=== PATIENT | female | born 1935 | race Caucasian/White ===

== ENCOUNTER 2019-09-21 12:54 | Outpatient (CLI) | payer MEDICARE, BC, SELFPAY ==
[2019-09-21 14:14] LABS: C Reactive Protein 0.9 mg/L (0.0-4.9); Creatine Phosphokinase 123 U/L (26-192)
[2019-09-21 15:05] LABS: Erythrocyte Sedimentation Rate 15 mm/hr (0-15)
[2019-09-22 11:07] LABS: Aldolase 5.1 U/L (< OR = 8.1)
[2019-09-22 13:47] LABS: Cyclic Citrullinated Peptide <16 UNITS
[2019-09-22 14:12] LABS: Anti-Nuclear Antibody Screen NEGATIVE (NEGATIVE); SCL 70 <1.0 NEG AI (<1.0 NEG); SS A Ro Sjogrens Antibody <1.0 NEG AI (<1.0 NEG); SS-B/LA IGG <1.0 NEG AI (<1.0 NEG)
== END 2019-09-21 12:55 | disposition home or self-care (01) ==
LOC: LAB 12:59
PROVIDERS: Visit Provider Internal Medicine Critical Care Medicine
DX: J84.10 Pulmonary fibrosis, unspecified (principal)
CPT/HCPCS: 36415; 82085; 82550; 83516; 85651; 86038; 86140; 86235; 86431

== ENCOUNTER 2019-09-23 10:18 | Outpatient (CLI) | payer MEDICARE, BC, SELFPAY ==
--- NOTE | 2019-09-23 10:45 | CT_ITS ---
WS: [id number] CT CHEST TECHNIQUE: High-resolution Noncontrast CT of the chest with coronal and sagittal reformatted images. CLINICAL INFORMATION: PULMONARY FIBROSIS COMPARISON: CT chest August 08, 2019 DLP: 1615.[address] scans at [facility] use at least one of these dose optimization techniques: automat ed exposure control; mA and/or kV adjustment per patient size (includes targeted exams where dose is matched to clinical indication); or iterative reconstruction. FINDINGS: Moderate chronic emphysematous changes. No acute pulmonary infiltrates. No consolidation or pleural f luid. No focal pneumonia. Again seen are changes of interstitial fibrosis with slight peripheral honeycombing in the lower lobe s peripherally, right middle lobe, and lingula. Mosaic pattern with moderate air trapping seen on the expiratory imaging. Mild thoracic aortic calcification. Coronary calcification. Small right thyroid nodule measuring 10 m m. No mediastinal or hilar lymphadenopathy. Normal endobronchial tree. Small esophageal hiatal hernia. Cholecystectomy clips. 2.6 cm right renal cyst. Adrenal glands are no rmal. Unremarkable thoracic spine. CT/CT chest wo con [id number] IMPRESSION: 1. Moderate chronic emphysematous changes. 2. Stable changes of interstitial fibrosis with a small amount of peripheral h oneycombing, more prominent in the lung bases. 3. Moderate air trapping seen on the expiratory imaging with mosaic lung perfu swetha. 4. No mediastinal or hilar lymphadenopathy. 5. Cardiomegaly with vascular calcification. 6. Small esophageal hiatal hernia.
== END 2019-09-23 10:19 | disposition home or self-care (01) ==
LOC: RADWPI 10:21
PROVIDERS: Visit Provider Internal Medicine Critical Care Medicine
DX: J84.10 Pulmonary fibrosis, unspecified (principal); I51.7 Cardiomegaly; K44.9 Diaphragmatic hernia without obstruction or gangrene
CPT/HCPCS: 71250

== ENCOUNTER → 2019-10-04 08:37 | Outpatient (BNVA) | payer MEDICARE, BC, SELFPAY | PROVIDERS: Visit Provider Internal Medicine Cardiovascular Disease | DX: I10 Essential (primary) hypertension (principal); E78.5 Hyperlipidemia, unspecified; I25.10 Atherosclerotic heart disease of native coronary artery without angina pectoris; G47.33 Obstructive sleep apnea (adult) (pediatric); E78.2 Mixed hyperlipidemia; I48.0 Paroxysmal atrial fibrillation | CPT/HCPCS: 80061 ==

== ENCOUNTER 2019-11-22 11:56 | Outpatient (CLI) | payer MEDICARE, BC, SELFPAY ==
[2019-11-22 12:45] LABS: Alanine Aminotransferase 29 U/L (0-33); Alkaline Phosphatase 55 IU/L (35-105); Anion Gap 16.6 (5-19); Blood Urea Nitrogen 18 mg/dL (8-23); Calcium 10.2 mg/dL (8.5-10.5); Carbon Dioxide 26 mmol/L (22-29); Chloride 103 mmol/L (98-107); Globulin 2.7 g/dL (1.3-4.6); Glucose 129 mg/dL (65-115); Osmolality Calculated 290 mOsm/kg (285-295); Potassium 4.6 mmol/L (3.5-5.1); Sodium 141 mmol/L (136-145); Total Bilirubin 0.4 mg/dL (0.15-1.2); Total Protein 6.7 g/dL (6.6-8.7)
[2019-11-22 13:42] LABS: Aspartate Amino Transferase 31 U/L (0-32)
== END 2019-11-22 11:57 | disposition home or self-care (01) ==
LOC: LAB 12:01
PROVIDERS: Visit Provider Internal Medicine Critical Care Medicine
DX: J67.9 Hypersensitivity pneumonitis due to unspecified organic dust (principal)
CPT/HCPCS: 36415; 80053

== ENCOUNTER 2019-12-21 12:32 | Outpatient (CLI) | payer MEDICARE, BC, SELFPAY ==
[2019-12-21 14:08] LABS: Anion Gap 16.5 (5-19); Blood Urea Nitrogen 26 mg/dL (8-23); Calcium 9.4 mg/dL (8.5-10.5); Carbon Dioxide 26 mmol/L (22-29); Chloride 100 mmol/L (98-107); Glucose 157 mg/dL (65-115); Osmolality Calculated 286 mOsm/kg (285-295); Potassium 4.5 mmol/L (3.5-5.1); Sodium 138 mmol/L (136-145)
== END 2019-12-21 12:33 | disposition home or self-care (01) ==
LOC: LAB 12:37
PROVIDERS: Visit Provider Internal Medicine Critical Care Medicine
DX: J67.9 Hypersensitivity pneumonitis due to unspecified organic dust (principal)
CPT/HCPCS: 80048

== ENCOUNTER → 2020-03-19 12:40 | Outpatient (BNVA) | payer MEDICARE, BC, SELFPAY | PROVIDERS: Visit Provider Internal Medicine | DX: J67.9 Hypersensitivity pneumonitis due to unspecified organic dust (principal) | CPT/HCPCS: 87635 ==

== ENCOUNTER → 2020-04-30 11:28 | Outpatient (BNVA) | payer MEDICARE, BC, SELFPAY | PROVIDERS: Visit Provider Internal Medicine | DX: J67.9 Hypersensitivity pneumonitis due to unspecified organic dust (principal); J84.10 Pulmonary fibrosis, unspecified | CPT/HCPCS: 87635 ==

== ENCOUNTER 2020-05-03 11:04 | Outpatient (CLI) | payer MEDICARE, BC, SELFPAY ==
--- NOTE | 2020-05-03 15:59 | PFTS_ITS ---
Date of Study:05/03/20 Date of Dictation: MECHANICS: Forced vital capacity (FVC) is reduced. Forced expiratory volume in one second (FEV1) is reduced. FEV1/FVC is normal. FLOW VOLUME LOOP: Narrow. LUNG VOLUMES: Total lung capacity (TLC) is reduced. Residual volume (RV) is reduced. DIFFUSING CAPACITY FOR CARBON MONOXIDE: Normal. INTERPRETATION: The pulmonary function tests are consistent with moderate restriction. There is no significant postbronchodilator response. Lung volumes are consistent with restrictive lung disease. Gas exchange (DLCO) is normal. MTDD
== END 2020-05-03 11:05 | disposition home or self-care (01) ==
LOC: RT 11:05
PROVIDERS: Visit Provider Internal Medicine Critical Care Medicine
DX: J67.9 Hypersensitivity pneumonitis due to unspecified organic dust (principal)
CPT/HCPCS: 94060; 94726; 94729; J7611

== ENCOUNTER 2020-05-24 06:57 | Outpatient (CLI) | payer MEDICARE, BC, SELFPAY ==
--- NOTE | 2020-05-24 07:10 | USCV_ITS ---
Adrian Eloisa Age: 85 Gender: F : 1935 Exam Date: 05/24/2020 07:31 Ordering Phys: Saleem Rosado Technologist: Tenisha Hussein Exam Location: [facility] [place] Indication: CHRONIC BENITES HF BP: 152 / 74 HR: 67 Rhythm: Other Technical Quality: Fair MEASUREMENTS (Male / Female) Normal Values 2D ECHO LV Diastolic Diameter PLAX 5.5 cm 4.2 - 5.9 / 3.9 - 5.3 cm LV Systolic Diameter PLAX 3.6 cm LV Chamber Size 4.7 cm IVS Diastolic Thickness 1.0 cm 0.6 - 1.0 / 0.6 - 0.9 cm IVS Systolic Thickness 1.7 cm LVPW Diastolic Thickness 0.9 cm 0.6 - 1.0 / 0.6 - 0.9 cm LVPW Systolic Thickness 1.2 cm RV Chamber Size 3.3 cm LVOT Diameter 2.0 cm LV Ejection Fraction 2D Teich 62.1 % LA Diameter 4.3 cm LA Width 3.5 cm LA Height 5.2 cm RA Width 2.9 cm RA Height 5.3 cm Aorta at Sinotubular Diameter 2.6 cm M-MODE LV Diastolic Diameter MM 5.7 cm 4.2 - 5.9 / 3.9 - 5.3 cm LV Systolic Diameter MM 3.7 cm LV Ejection Fraction MM Teich 64.1 % IVS Diastolic Thickness MM 1.2 cm 0.6 - 1.0 / 0.6 - 0.9 cm IVS Systolic Thickness MM 1.1 cm LVPW Diastolic Thickness MM 0.9 cm 0.6 - 1.0 / 0.6 - 0.9 cm LVPW Systolic Thickness MM 1.6 cm Aortic Annulus Diameter 3.0 cm LA Ao Ratio MM 1.5 MV E Point Septal Separation 0.3 cm DOPPLER AV Peak Velocity 150.0 cm/s LVOT Peak Velocity 95.0 cm/s AV Area Cont Eq vti 2.1 cm squared AV Area Cont Eq pk 2.0 cm squared MV Area PHT 2.7 cm squared Mitral E to A Ratio 0.8 MV E' Velocity 42.0 cm/s Mitral E to MV E' Ratio 10.9 Mitral E to LV E' Lateral Ratio 9.7 Mitral E to LV E' Septal Ratio 12.5 TR Peak Velocity 256.2 cm/s TR Peak Gradient 26.3 mmHg TR Mean Velocity 222.1 cm/s TR Mean Gradient 19.9 mmHg TR Velocity Time Integral 88.8 cm TV Peak E Velocity 55.0 cm/s Right Atrial Pressure 3.0 mmHg Pulmonary Artery Systolic Pressu 29.3 mmHg PV Peak Velocity 88.0 cm/s FINDINGS Left Ventricle Normal left ventricular size and systolic function, EF 60%. No gross wall motion of normalities. Segmental wall motion analysis difficult because of the poor ultrasonic window .Grade I/IV diastolic dysfunction (abnormal relaxation filling pattern), normal to mildly elevated filling pressures. Right Ventricle Normal right ventricular size and systolic function. Right Atrium Normal right atrial size. Left Atrium Moderately increased left atrial size. Mitral Valve Thickened mitral valve. Mild mitral annular calcification. Trace mitral valve regurgitation. Aortic Valve Thickened aortic valve. Tricuspid Valve Trace tricuspid valve regurgitation. Pulmonic Valve Pulmonic valve not well visualized. Pericardium No pericardial effusion. Aorta Normal aortic annulus size. CONCLUSIONS Normal left ventricular size and systolic function, EF 60%. No gross wall motion of normalities. Segmental wall motion analysis difficult because of the poor ultrasonic window . Type I diastolic dysfunction. Thickened aortic and mitral valves. Mild mitral annular calcification. Trace mitral valve regurgitation. Trace tricuspid valve regurgitation. Estimated pulmonary artery peak systolic pressure was 26 mmHg There is no pericardial effusion. There are no intracardiac masses. Compared to the study from 09/17/2016, there may not be a significant change Dr Flo Wong MD [facility] (Electronically Signed) Final Date: 24 May 2020 13:56 S
== END 2020-05-24 06:58 | disposition home or self-care (01) ==
LOC: RAD 07:01
DX: I50.32 Chronic diastolic (congestive) heart failure (principal); I08.3 Combined rheumatic disorders of mitral, aortic and tricuspid valves
CPT/HCPCS: 93306

== ENCOUNTER 2020-06-25 09:03 | Emergency (ER) | payer MEDICARE, BC, SELFPAY ==
[2020-06-25 09:04] VITALS: BP 158/68; PULSE 56; RESP 15; TEMP 36.5; O2SAT 97; BMI 29.0
[2020-06-25 09:31] LABS: Basophils % 0.3 %; Eosinophils # 0.3 10^3/uL (0.0-0.8); Eosinophils % 2.9 %; Hematocrit 40.3 % (37.0-47.0); Hemoglobin 12.8 g/dL (11.5-15.3); Lymphocytes # 2.8 10^3/uL (0.8-4.8); Lymphocytes % 27.2 %; Mean Corpuscular HGB Conc 31.8 g/dL (30.0-36.0); Mean Corpuscular Hemoglobin 29.4 pg (28.0-34.0); Mean Corpuscular Volume 92.6 fL (81-99); Mean Platelet Volume 10.7 fL (7.4-10.4); Monocytes # 0.7 10^3/uL (0.2-0.9); Monocytes % 6.5 %; Neutrophils # 6.49 10^3/uL (1.8-7.7); Neutrophils % 62.4 %; Nucleated Red Blood Cells % 0 %; Platelet Count 179 10^3/cmm (130-400); Red Blood Count 4.35 10^6/uL (4.1-5.3); Red Cell Distribution Width 13.2 % (12.1-15.1); White Blood Count 10.4 10^3/uL (4.0-10.0)
[2020-06-25 09:57] LABS: Alanine Aminotransferase 22 U/L (0-33); Albumin Level 3.9 g/dL (3.5-5.2); Alkaline Phosphatase 47 IU/L (35-105); Aspartate Amino Transferase 13 U/L (0-32); Blood Urea Nitrogen 39 mg/dL (8-23); Calcium 9.3 mg/dL (8.5-10.5); Carbon Dioxide 23 mmol/L (22-29); Chloride 100 mmol/L (98-107); Globulin 1.9 g/dL (1.3-4.6); Glucose 212 mg/dL (65-115); Osmolality Calculated 300 mOsm/kg (285-295); Sodium 137 mmol/L (136-145); Total Bilirubin 0.5 mg/dL (0.15-1.2); Total Protein 5.8 g/dL (6.6-8.7)
[2020-06-25] MEDS: sodium chloride 0.9% 500 ML 999 ML IV (10:03)
[2020-06-25 10:06] LABS: Creatinine Clr Calc Pharmacy 45.1134
--- NOTE | 2020-06-25 10:15 | CT_ITS ---
WS: [id number] CT HEAD NONCONTRAST HISTORY: fall/LOC/on anticoagulants TECHNIQUE: Contiguous axial imaging performed through the brain in 2.5 mm imaging. Bone and soft tiss ue windows. Sagittal and coronal reformats reviewed. All CT scans at [facility] use at le ast one of these dose optimization techniques: automated exposure control; mA and/or kV adjustment pe r patient size (includes targeted exams where dose is matched to clinical indication); or iterative r econstruction. DLP: 723.04 mGy.cm COMPARISON: 2016 No acute intracranial hemorrhage, midline shift or mass effect. Mild atrophy and chronic ischemic disease. Ventricles: Normal size with no hydrocephalus. There are a few foci of air at the skull base that were not present on the prior examination. These a re through the cavernous sinus bilaterally. There are a few additional foci of air in the LEFT mastic ator space. None of these collections of air were present on the prior study. With history of trauma an occult skull base fracture cannot be completely excluded. Paranasal sinuses: As visualized are clear. Mastoid air cells: Mastoid air cells are clear. There is a small amount of soft tissue in the LEFT ex ternal auditory canal. Calvarium and scalp: No skull fracture is identified. CT/CT head wo con* [id number] IMPRESSION: 1. No acute intracranial hemorrhage or edema. 2. 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 Occult paranasal sinus or skull base fracture young ot be excluded. Consider follow-up CT evaluation in 2-3 days to evaluate for re solution of the air or progression.
[2020-06-25 10:23] LABS: Blood Urine Neg (Negative); Glucose Urine UA Norm (Normal); Ketones Urine Negative (Negative); Nitrate Urine Negative (Negative); Protein Urine Neg (Negative); Urine Appearance SL Hazy (CLEAR); Urine Color Yellow (Yellow); pH Urine 5 (5-7)
[2020-06-25 10:24] LABS: Add Urine Microscopic? YES; Bacteria Urine 1+ /hpf; Bilirubin Urine Neg (Negative); Calcium Oxalate Crystals Urine 40-55 /hpf; Leukocyte Esterase Urine Negative (Negative); RBC Urine 0-4 /hpf (0-2); Squamous Epithelial Cell Urine 0-4 /hpf (0-5); Urobilinogen Urine Norm (Negative); WBC Urine 0-4 /hpf (0-5)
--- NOTE | 2020-06-25 10:34 | ED_ITS ---
HPI - Female Genitourinary General: Chief complaint: Urogenital-Female Stated complaint: Unable to tolerate antibiotics for UTI Time Seen by Provider: 06/25/20 09:13 History of Present Illness: HPI Narrative: 85-year-old female presents emergency room at the direction of nurse practitioner. She was seen last week and started on oral antibiotics for a UTI. 3 days ago the same day she started the antibiotics that she had went to go to the bathroom bit lightheaded and dizzy and fell forward off the toilet she has a small superficial abrasion on the right upper forehead from the incident. She is on Eliquis and Plavix. There was a brief loss of consciousness. She stopped taking the antibiotics assuming that it was antibiotics that caused her to pass out. When she contacted the midlevel today they advised her to come to the emergency room. She does relate she had a low-grade fever at home and some loose stools she denies any nausea or vomiting. She denies any GI blood loss. She not noted any hematuria she does have a little bit of left flank pain none on the left. Is a history of recurrent UTIs, diabetes mellitus as well as atrial fibrillation. MD elicited complaint: UTI Pertinent past history: recurrent UTIs and diabetes Onset (ago): day(s) Severity: moderate Female Urogenital Radiation: L Flank Quality of pain: cramping Consistency: constant Vaginal discharge: none Vaginal bleeding: none Urinary symptoms: Dysuria and Flank Pain Exacerbating factors: none Relieving factors: none Associated symptoms: Reports abdominal pain, nausea, syncope and weakness; Deny short of breath, fevers/chills, headache(s), rash, seizures, vaginal bleeding or vaginal discharge Treatment prior to arrival: other (Single dose oral antibiotics) Review of Systems Const: Denies: fever(s), chills, body aches, change in appetite, fatigue or malaise ENMT: Denies: throat pain, ear or mastoid pain, nasal discharge or nasal congestion Card: Reports: syncope Resp: Denies: dyspnea, productive cough or non-productive cough GI: Reports: abdominal pain and nausea : Denies: vaginal discharge Skin/Breast: Denies: rash or pruritus Neuro: Denies: headache(s) [facility] ED PFSH: Medical History (Updated 06/25/20 @ 13:07 by Alfredo Spear DO) Atherosclerotic heart disease of [place] coronary artery without angina pectoris Atrial fibrillation Chest pain Fatigue GERD (gastroesophageal reflux disease) Hyperlipidemia Hypertension Obstructive sleep apnea Pt did not like CPAP SOB (shortness of breath) Type 2 diabetes mellitus Surgical History History of repair of hiatal hernia Hx of breast biopsy Hx of cholecystectomy Hx of hysterectomy Hx of laminectomy Hx of rotator cuff surgery Family History Father Diabetes Hypertension CAD (coronary artery disease) Mother Hypertension CAD (coronary artery disease) Sister Cancer Grandmother Cancer Other Bleeding disorder Social History Smoking and tobacco status: never smoked Alcohol intake: never Lives independently: Yes Household members: none Marital status: / Current occupational status: retired History of recent travel: No Current gender identity: Female Physical Exam Const: COMMON NORMALS: no acute distress GENERAL APPEARANCE: cooperative and comfortable ORIENTATION/CONSCIOUSNESS: Yes awake, Yes oriented to person, Yes oriented to place and Yes oriented to time HENMT: COMMON NORMALS: normocephalic and atraumatic HEAD & SCALP: normocephalic and atraumatic Neck/C-Spine: COMMON NORMALS: no JVD Resp: COMMON NORMALS: normal respiratory effort, No retractions, No use of accessory muscles and clear to auscultation bilaterally AUSCULTATION: clear to auscultation bilaterally Cardio: COMMON NORMALS: no JVD, regular rate, regular rhythm and No murmurs present (Cardio) RATE: regular rate RHYTHM: regular rhythm GI: COMMON NORMALS: Soft to palpation and No hepatosplenomegaly present AUSCULTATION: Yes normoactive bowel sounds PALPATION: Yes Soft to palpation, No Tenderness to palpation present (GI), No Guarding due to palpation present (GI) and Yes No hepatosplenomegaly present : BLADDER/KIDNEY EXAM: Yes CVA tenderness SPECULUM EXAM - VAGINA: No vaginal bleeding OB/EXTERNAL & SPECULUM: No vaginal bleeding Back/Pelvis: GENERAL BACK: Yes CVA tenderness CVA tenderness: left Extremity: COMMON NORMALS: normal to inspection, capillary refill normal, no clubbing, cyanosis or edema, no calf tenderness and no pedal edema Neuro: SENSORIUM/ORIENTATION: Yes oriented to person, Yes oriented to place and Yes oriented to time Skin: COMMON NORMALS: no rashes or lesions noted GENERAL SKIN EXAM: no rashes or lesions noted Course Vital Signs: Vital signs: Vital Signs Temperature 97.7 F 06/25/20 09:04 Pulse Rate 70 06/25/20 13:15 Respiratory Rate 15 06/25/20 13:15 Blood Pressure 136/55 06/25/20 13:15 Pulse Oximetry 98 06/25/20 13:15 MDM - Female MDM Narrative: Medical decision making narrative: Discussed findings with the patient. She is feeling much better working to go ahead and discharge her home. Complete antibiotics previously prescribed for UTI. Lab Data: Labs: Lab Results 06/25/20 06/25/20 06/25/20 Range/Units 09:20 09:20 09:20 WBC 10.4 H (4.0-10.0) 10^3/ uL RBC 4.35 (4.1-5.3) 10^6/u L Hgb 12.8 (11.5-15.3) g/dL Hct 40.3 (37.0-47.0) % MCV 92.6 (81-99) fL MCH 29.4 (28.0-34.0) pg MCHC 31.8 (30.0-36.0) g/dL RDW 13.2 (12.1-15.1) % Plt Count 179 (130-400) 10^3/c mm MPV 10.7 H (7.4-10.4) fL Neut % (Auto) 62.4 % Lymph % (Auto) 27.2 % [place] % (Auto) 6.5 % Eos % (Auto) 2.9 % Baso % (Auto) 0.3 % Neut # (Auto) 6.49 (1.8-7.7) 10^3/u L Lymph # (Auto) 2.8 (0.8-4.8) 10^3/u L [place] # (Auto) 0.7 (0.2-0.9) 10^3/u L Eos # (Auto) 0.3 (0.0-0.8) 10^3/u L Baso # (Auto) 0.0 (0.0-0.1) 10^3/u L Nucleated RBC % (a uto) 0 % Nucleated RBCs # 0.0 /100WBC Sodium 137 (136-145) mmol/L Potassium 4.0 (3.5-5.1) mmol/L Chloride 100 (98-107) mmol/L Carbon Dioxide 23 (22-29) mmol/L Anion Gap 18.0 (5-19) BUN 39 H (8-23) mg/dL Creatinine 1.0 H (0.5-0.9) mg/dL GFR Calculation Not Reportable Glucose 212 H (65-115) mg/dL Calculated Osmolal ity 300 H (285-295) mOsm/k g Calcium 9.3 (8.5-10.5) mg/dL Total Bilirubin 0.5 (0.15-1.2) mg/dL AST 13 (0-32) U/L ALT 22 (0-33) U/L Alkaline Phosphata se 47 (35-105) IU/L Troponin T Gen 5 n g/L 22 H (0-10) ng/L Troponin T 120 Min coquille (0-10) ng/L Delta Troponin T (0-10) ABS# Total Protein 5.8 L (6.6-8.7) g/dL Albumin 3.9 (3.5-5.2) g/dL Globulin 1.9 (1.3-4.6) g/dL Urine Color (Yellow) Urine Appearance (CLEAR) Urine pH (5-7) Ur Specific Gravit y (1.005-1.030) Urine Protein (Negative) Urine Glucose (UA) (Normal) Urine Ketones (Negative) Urine Blood (Negative) Urine Nitrate (Negative) Urine Bilirubin (Negative) Urine Urobilinogen (Negative) mg/dL Ur Leukocyte Brianna ase (Negative) Urine RBC (0-2) /hpf Urine WBC (0-5) /hpf Ur Squamous Epith Cells (0-5) /hpf Calcium Oxalate Cr ystal /hpf Amorphous Sediment Urine Bacteria (NONE) /hpf 06/25/20 06/25/20 Range/Units 09:30 12:27 WBC (4.0-10.0) 10^3/ uL RBC (4.1-5.3) 10^6/u L Hgb (11.5-15.3) g/dL Hct (37.0-47.0) % MCV (81-99) fL MCH (28.0-34.0) pg MCHC (30.0-36.0) g/dL RDW (12.1-15.1) % Plt Count (130-400) 10^3/c mm MPV (7.4-10.4) fL Neut % (Auto) % Lymph % (Auto) % [place] % (Auto) % Eos % (Auto) % Baso % (Auto) % Neut # (Auto) (1.8-7.7) 10^3/u L Lymph # (Auto) (0.8-4.8) 10^3/u L [place] # (Auto) (0.2-0.9) 10^3/u L Eos # (Auto) (0.0-0.8) 10^3/u L Baso # (Auto) (0.0-0.1) 10^3/u L Nucleated RBC % (a uto) % Nucleated RBCs # /100WBC Sodium (136-145) mmol/L Potassium (3.5-5.1) mmol/L Chloride (98-107) mmol/L Carbon Dioxide (22-29) mmol/L Anion Gap (5-19) BUN (8-23) mg/dL Creatinine (0.5-0.9) mg/dL GFR Calculation Glucose (65-115) mg/dL Calculated Osmolal ity (285-295) mOsm/k g Calcium (8.5-10.5) mg/dL Total Bilirubin (0.15-1.2) mg/dL AST (0-32) U/L ALT (0-33) U/L Alkaline Phosphata se (35-105) IU/L Troponin T Gen 5 n g/L (0-10) ng/L Troponin T 120 Min coquille 19.73 H (0-10) ng/L Delta Troponin T (0-10) ABS# Total Protein (6.6-8.7) g/dL Albumin (3.5-5.2) g/dL Globulin (1.3-4.6) g/dL Urine Color Yellow (Yellow) Urine Appearance Sl hazy (CLEAR) Urine pH 5 (5-7) Ur Specific Gravit y 1.020 (1.005-1.030) Urine Protein Neg (Negative) Urine Glucose (UA) Norm (Normal) Urine Ketones Negative (Negative) Urine Blood Neg (Negative) Urine Nitrate Negative (Negative) Urine Bilirubin Neg (Negative) Urine Urobilinogen Norm (Negative) mg/dL Ur Leukocyte Brianna ase Negative (Negative) Urine RBC 0-4 H (0-2) /hpf Urine WBC 0-4 H (0-5) /hpf Ur Squamous Epith Cells 0-4 H (0-5) /hpf Calcium Oxalate Cr ystal 40-55 H /hpf Amorphous Sediment Not Reportable Urine Bacteria 1+ H (NONE) /hpf Discharge Plan Discharge Patient Disposition: Home Clinical Impression: Syncope, Cystitis, Hypertension Condition: Stable Prescriptions: No Action pantoprazole 40 mg tablet,delayed release (DR/EC) 40 mg PO DAILY RF: 0 fenofibrate nanocrystallized [Tricor] 145 mg tablet 145 mg PO BEDTIME RF: 0 cholecalciferol (vitamin D3) 1,000 unit capsule 1,000 unit PO BID RF: 0 pioglitazone 15 mg tablet 15 mg PO DAILY RF: 0 Basaglar KwikElias U-100 Insulin 100 unit/mL (3 mL) insulin pen 62 unit SUBCUT BEDTIME RF: 0 prednisone 20 mg tablet 20 mg PO DAILY 60 Days Qty: 60 RF: 0 budesonide-formoterol [Symbicort] 80-4.5 mcg/actuation HFA aerosol inhaler 2 puff INHALATION BID 90 Days Qty: 10.2 RF: 3 metoprolol tartrate 50 mg tablet 50 mg PO BID Qty: 90 RF: 3 atorvastatin 10 mg Tablet 10 mg PO DAILY RF: 0 potassium chloride 10 mEq Tablet Extended Release 10 meq PO DAILY RF: 0 Lasix 20 mg Tablet 20 mg PO DAILY RF: 0 valsartan 160 mg Tablet 80 mg PO DAILY RF: 0 clopidogrel 75 mg tablet 75 mg PO DAILY RF: 0 Eliquis 5 mg Tablet 5 mg PO BID RF: 0 Discharge Orders: Discharge Order (Routine); Ordered 06/25/20 Ordered By: Alfredo Spear Referrals: Saleem Rosdao [Primary Care Provider] - Activity Restrictions/Additional Instructions: Case management will call to get you scheduled for an outpatient Holter monitor Coding Level of Care Code ED Exam Proctor for Chg Fwd Exam Comprehensive
[2020-06-25 11:30] VITALS: BP 116/94; PULSE 60; RESP 15; O2SAT 99
--- NOTE | 2020-06-25 11:38 | ECG_ITS ---
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 Measurements Intervals [place] Rate: 60 P: -17 MD: 135 QRS: -8 QRSD: 95 T: 90 QT: 388 QTc: 390 Interpretive Statements SINUS RHYTHM WITH OCCASIONAL SUPRAVENTRICULAR PREMATURE COMPLEXES NONSPECIFIC T-WAVE ABNORMALITY Compared to ECG 04/11/2017 21:14:55 T-wave abnormality now present Electronically Signed On 06-25-2020 18:25:35 [employer] by Flo Wong M.D. [id number] f
[2020-06-25 12:03] VITALS: BP 134/67; PULSE 61; RESP 15; O2SAT 96
[2020-06-25 12:13] LABS: Troponin T (5th) Once 22 ng/L (0-10)
[2020-06-25 12:50] LABS: Troponin 5 2HR 19.73 ng/L (0-10)
[2020-06-25 13:15] VITALS: BP 136/55; PULSE 70; RESP 15; O2SAT 98
--- NOTE | 2020-06-26 15:05 | DCPLANNER ---
executive communications manager had message to schedule a follow up appointment for patient with [facility] for a 24 hour monitor. executive communications manager faxed order to [facility], will call for appointment.
--- NOTE | 2020-07-11 10:33 | DCPLANNER ---
Patient had a follow up appointment on 06.28.20 at [facility] heart and lung clinic - patient did attend appointment.
== END 2020-06-25 13:16 | disposition home or self-care (01) ==
PROVIDERS: Emergency Provider Family Medicine
DX: R55 Syncope and collapse (principal); N30.90 Cystitis, unspecified without hematuria; I10 Essential (primary) hypertension; Z79.01 Long term (current) use of anticoagulants; Z79.52 Long term (current) use of systemic steroids; Z79.4 Long term (current) use of insulin; E11.9 Type 2 diabetes mellitus without complications; E78.5 Hyperlipidemia, unspecified; I25.10 Atherosclerotic heart disease of native coronary artery without angina pectoris; I48.91 Unspecified atrial fibrillation; S06.9X9A Unspecified intracranial injury with loss of consciousness of unspecified duration, initial encounter; W18.12XA Fall from or off toilet with subsequent striking against object, initial encounter
CPT/HCPCS: 12345; 70450; 80053; 81001; 84484; 85025; 93005; 99283; J7040

== ENCOUNTER 2020-07-20 15:29 | Outpatient (CLI) | payer MEDICARE, BC, SELFPAY ==
--- NOTE | 2020-07-20 15:45 | CT_ITS ---
WS: [id number] HIGH-RESOLUTION CT CHEST TECHNIQUE: High-resolution Noncontrast CT of the chest with prone and supine inspiratory and expirato ry imaging. CLINICAL INFORMATION: Interstitial lung disease COMPARISON: September 23, 2019 DLP: 593.[address] scans at [facility] use at least one of these dose optimization techniques: automat ed exposure control; mA and/or kV adjustment per patient size (includes targeted exams where dose is matched to clinical indication); or iterative reconstruction. FINDINGS: Moderate chronic emphysematous changes. Again seen are changes of interstitial fibrosis with mild per ipheral honeycombing more prominent in the lower lobes peripherally, right middle lobe, right upper l obe laterally, and lingula similar to previous. Again seen is moderate air trapping seen on the expiratory imaging. No acute pulmonary infiltrates. N o consolidation or pleural fluid. Overall no significant interval progression of interstitial lung di sease. Mild thoracic aortic calcification. Cardiomegaly. Coronary calcification. No mediastinal or hilar lym phadenopathy. Normal endobronchial tree. Small esophageal hiatal hernia. Cholecystectomy clips. CT/CT chest wo con [id number] IMPRESSION: 1. Stable moderate chronic emphysematous changes. 2. Again seen are changes of interstitial fibrosis with peripheral honeycombin g more prominent in the lower lobes stable from previous. No evidence of inters titial lung disease progression. 3. Again seen is moderate air trapping on the expiratory imaging. 4. No mediastinal or hilar lymphadenopathy. 5. Small esophageal hiatal hernia.
== END 2020-07-20 15:30 | disposition home or self-care (01) ==
LOC: RADWPI 15:36
PROVIDERS: Visit Provider Internal Medicine Critical Care Medicine
DX: J84.9 Interstitial pulmonary disease, unspecified (principal); K44.9 Diaphragmatic hernia without obstruction or gangrene
CPT/HCPCS: 71250

== ENCOUNTER → 2020-08-14 12:42 | Outpatient (BNVA) | payer MEDICARE, BC, SELFPAY | PROVIDERS: Visit Provider Nurse Practitioner Family | DX: N30.20 Other chronic cystitis without hematuria (principal) | CPT/HCPCS: 81003; 87077; 87086; 87184 ==

== ENCOUNTER → 2020-09-06 13:50 | Outpatient (BNVA) | payer MEDICARE, BC, SELFPAY | PROVIDERS: Visit Provider Nurse Practitioner Family | DX: N30.20 Other chronic cystitis without hematuria (principal) | CPT/HCPCS: 81003; 87077; 87086; 87184 ==

== ENCOUNTER → 2020-10-10 13:42 | Outpatient (BNVA) | payer MEDICARE, BC, SELFPAY | PROVIDERS: Visit Provider Urology | DX: R31.0 Gross hematuria (principal) | CPT/HCPCS: 87077; 87086; 87184; 88112 ==

== ENCOUNTER 2020-10-26 07:42 | Outpatient (CLI) | payer MEDICARE, BC, SELFPAY ==
[2020-10-26 09:00] LABS: Blood Urea Nitrogen 15 mg/dL (8-23)
--- NOTE | 2020-10-26 09:30 | CT_ITS ---
WS: [id number] CT ABDOMEN PELVIS TECHNIQUE: Noncontrast CT of the abdomen and contrast-enhanced CT of the abdomen and pelvis with bc nal and sagittal reformatted images. CLINICAL INFORMATION: GROSS HEMATURIA COMPARISON: CT December 11, 2015 DLP: 2533.[address] scans at [facility] use at least one of these dose optimization techniques: automat ed exposure control; mA and/or kV adjustment per patient size (includes targeted exams where dose is matched to clinical indication); or iterative reconstruction. FINDINGS: Prior cholecystectomy and hysterectomy. Diffuse fatty infiltration of the liver. Normal portal vein a nd splenic vein. Normal spleen. Small esophageal hiatal hernia with periesophageal component. Bibasil ar atelectasis. Normal spleen. Adrenal glands are normal. Normal renal parenchymal enhancement. No hydronephrosis. Right renal cyst measuring 2.9 CM. No hydronephrosis in either kidney. Mild bilateral renal cortical atrophy. No obstr ucting renal or ureteral calculi. Diverticulosis. No evidence of acute diverticulitis. No evidence of small or large bowel obstruction. Tiny fat-containing umbilical hernia. No abdominal or pelvic lymphadenopathy. Tiny fat-containing um bilical hernia. Bilateral fat-containing inguinal hernias. Moderate spondylitic changes lumbar spine. Lumbar curve convex left. CT/CT abdomen pelvis wo/w [id number] IMPRESSION: 1. No obstructing renal or ureteral calculi. 2. Normal bilateral renal parenchymal enhancement. No hydronephrosis. 3. Exophytic right upper pole renal cyst measuring 2.9 cm unchanged since 2015 . 4. Diffuse fatty infiltration of the liver. 5. Small esophageal hiatal hernia with a small paraesophageal component. 6. Sigmoid diverticulosis. No evidence of acute diverticulitis.
[2020-10-26] MEDS: iohexol 300 mg/mL 100 mL Btl IV (09:54)
== END 2020-10-26 07:43 | disposition home or self-care (01) ==
LOC: US 07:47
PROVIDERS: Visit Provider Nurse Practitioner Family
DX: R31.0 Gross hematuria (principal); K57.30 Diverticulosis of large intestine without perforation or abscess without bleeding; K44.9 Diaphragmatic hernia without obstruction or gangrene; K76.0 Fatty (change of) liver, not elsewhere classified; Q61.01 Congenital single renal cyst
CPT/HCPCS: 74178; 81003; 82565; 84520

== ENCOUNTER → 2021-01-30 11:02 | Outpatient (BNVA) | payer MEDICARE, BC, SELFPAY | PROVIDERS: Visit Provider Urology | DX: N30.80 Other cystitis without hematuria (principal) | CPT/HCPCS: 81003 ==

== ENCOUNTER → 2021-05-17 11:54 | Outpatient (BNVA) | payer MEDICARE, BC, SELFPAY | PROVIDERS: PCP Nurse Practitioner Family; Visit Provider Nurse Practitioner Family | DX: Z20.822 Contact with and (suspected) exposure to COVID-19 (principal) | CPT/HCPCS: 87635 ==

== ENCOUNTER → 2021-09-03 10:12 | Outpatient (BNVA) | payer MEDICARE, BC, SELFPAY | PROVIDERS: PCP Nurse Practitioner Family; Visit Provider Urology | DX: N39.9 Disorder of urinary system, unspecified (principal); N30.80 Other cystitis without hematuria; N31.9 Neuromuscular dysfunction of bladder, unspecified | CPT/HCPCS: 81003 ==

== ENCOUNTER → 2021-11-08 10:40 | Outpatient (BNVA) | payer MEDICARE, BC, SELFPAY | PROVIDERS: PCP Nurse Practitioner Family; Visit Provider Internal Medicine Critical Care Medicine | DX: J67.9 Hypersensitivity pneumonitis due to unspecified organic dust (principal); K21.9 Gastro-esophageal reflux disease without esophagitis; E78.5 Hyperlipidemia, unspecified; I10 Essential (primary) hypertension; G47.33 Obstructive sleep apnea (adult) (pediatric); E11.8 Type 2 diabetes mellitus with unspecified complications | CPT/HCPCS: 99213 ==

== ENCOUNTER → 2021-12-31 11:14 | Outpatient (BNVA) | payer MEDICARE, BC, SELFPAY | PROVIDERS: PCP Nurse Practitioner Family; Visit Provider Internal Medicine Cardiovascular Disease | DX: I25.10 Atherosclerotic heart disease of native coronary artery without angina pectoris (principal); I48.0 Paroxysmal atrial fibrillation; E78.2 Mixed hyperlipidemia; I10 Essential (primary) hypertension; R06.02 Shortness of breath; E11.9 Type 2 diabetes mellitus without complications; Z79.4 Long term (current) use of insulin | CPT/HCPCS: 36415; 80048; 80061; 82044; 83036; 83880; 84439; 84443; 85025; 99214 ==

== ENCOUNTER → 2022-03-11 10:39 | Outpatient (BNVA) | payer MEDICARE, BC, SELFPAY | PROVIDERS: PCP Clinical Nurse Specialist Adult Health; Visit Provider Urology | DX: N30.80 Other cystitis without hematuria (principal) | CPT/HCPCS: 81003; 87077; 87086; 87186; 99213 ==

== ENCOUNTER → 2022-07-01 14:01 | Outpatient (BNVA) | payer MEDICARE, BC, SELFPAY | PROVIDERS: PCP Clinical Nurse Specialist Adult Health; Visit Provider Internal Medicine Cardiovascular Disease | DX: I25.10 Atherosclerotic heart disease of native coronary artery without angina pectoris (principal); E78.2 Mixed hyperlipidemia; E11.9 Type 2 diabetes mellitus without complications; Z79.4 Long term (current) use of insulin; G47.33 Obstructive sleep apnea (adult) (pediatric); I10 Essential (primary) hypertension; I48.0 Paroxysmal atrial fibrillation; Z79.01 Long term (current) use of anticoagulants | CPT/HCPCS: 99214 ==

== ENCOUNTER → 2022-09-01 13:34 | Outpatient (BNVA) | payer MEDICARE, BC, SELFPAY | PROVIDERS: PCP Clinical Nurse Specialist Adult Health; Visit Provider Clinical Nurse Specialist Adult Health | DX: R39.11 Hesitancy of micturition (principal); J22 Unspecified acute lower respiratory infection | CPT/HCPCS: 81000; 87086 ==

== ENCOUNTER → 2022-09-01 14:49 | Outpatient (BNVA) | payer MEDICARE, BC, SELFPAY | PROVIDERS: PCP Clinical Nurse Specialist Adult Health; Visit Provider Clinical Nurse Specialist Adult Health | DX: R39.11 Hesitancy of micturition (principal); J22 Unspecified acute lower respiratory infection | CPT/HCPCS: 87077; 87184 ==

== ENCOUNTER → 2022-09-16 10:22 | Outpatient (BNVA) | payer MEDICARE, BC, SELFPAY | PROVIDERS: PCP Clinical Nurse Specialist Adult Health; Visit Provider Urology | DX: N30.80 Other cystitis without hematuria (principal) | CPT/HCPCS: 51798; 99213 ==

== ENCOUNTER 2022-10-07 15:13 | Outpatient (CLI) | payer MEDICARE, BC, SELFPAY ==
--- NOTE | 2022-10-07 15:28 | CT_ITS ---
WS: [id number] CT CHEST WITHOUT INTRAVENOUS CONTRAST HISTORY: RECENT LRI AND PNEUMONITIS TECHNIQUE: Contiguous 5 mm axial imaging performed on the thorax. Coronal and sagittal reformats are submitted. All CT scans at [facility] use at least one of these dose optimization techniques: automated exposure control; mA and/or kV adjustment per patient size (includes targeted exams where dose is matched to clinical indication); or iterative reconstruction. CONTRAST: None DLP: 436.76 mGy.cm COMPARISON: 07/20/2020 Lungs and central airway: Lung volumes are decreased. Patient has known pulmonary fibrosis with perip heral interstitial thickening noted bilaterally. No obvious progression of the reticulations the mari phery of both lungs. No dense areas of consolidation. There is mild bilateral groundglass attenuation which is probably related to air trapping. Pleura: Normal. No pleural effusion. Heart and pericardium: Moderate cardiomegaly. No pericardial effusion. Mediastinum and darryl: There are numerous small lymph nodes. Lymph nodes are not enlarged. There are m ediastinal and hilar lymph nodes. May be reactive due to the increase in number. Vessels: Mild atherosclerosis aorta. Mild coronary artery atherosclerosis. Chest wall and lower neck: No soft tissue masses. Upper abdomen: Moderate size hiatal hernia. Prior cholecystectomy. RIGHT renal cyst, 2.5 cm. Osseous structures: Increase in thoracic kyphosis. Disc spaces are narrowed and desiccated. CT/CT chest wo con [id number] IMPRESSION: 1. Moderate pulmonary fibrosis. Similar to the prior study of 07/20/2020 witho ut obvious change or progression. 2. No pneumonia. 3. Very slight increase in the mediastinal and hilar lymph node burden. May be reactive from pneumonitis. 4. Prior cholecystectomy. 5. RIGHT renal cyst.
== END 2022-10-07 15:14 | disposition home or self-care (01) ==
LOC: RAD 15:17
PROVIDERS: PCP Clinical Nurse Specialist Adult Health; Visit Provider Clinical Nurse Specialist Adult Health
DX: J67.9 Hypersensitivity pneumonitis due to unspecified organic dust (principal); J84.10 Pulmonary fibrosis, unspecified
CPT/HCPCS: 71250; 81000; 87086

== ENCOUNTER → 2022-10-29 13:30 | Outpatient (BNVA) | payer MEDICARE, BC, SELFPAY | PROVIDERS: PCP Clinical Nurse Specialist Adult Health; Visit Provider Urology | DX: N30.80 Other cystitis without hematuria (principal) | CPT/HCPCS: 99213 ==

== ENCOUNTER → 2022-11-10 10:00 | Outpatient (BNVA) | payer MEDICARE, BC, SELFPAY | PROVIDERS: PCP Clinical Nurse Specialist Adult Health; Visit Provider Internal Medicine Pulmonary Disease | DX: J44.9 Chronic obstructive pulmonary disease, unspecified (principal); J67.9 Hypersensitivity pneumonitis due to unspecified organic dust | CPT/HCPCS: 99214 ==

== ENCOUNTER 2022-12-01 15:57 | Outpatient (CLI) | payer MEDICARE, BC, SELFPAY ==
--- NOTE | 2022-12-01 16:23 | XRR_ITS ---
PROCEDURE INFORMATION: Exam: XR Chest Exam date and time: 12/01/2022 4:23 PM Age: 87 years old Clinical indication: Cough and shortness of breath TECHNIQUE: Imaging protocol: Radiologic exam of the chest. Views: 2 views. COMPARISON: CT chest con [id number] 10/07/2022 4:01 PM FINDINGS: Lungs: Imfie-qmebpid-rzqe-left severe hazy patchy infiltrates with fibrosis again seen. Findings are progressed from 10/07/2022. Pleural spaces: No pneumothorax. Heart/Mediastinum: The heart is mildly enlarged. Vasculature: Advanced diffuse vascular calcification noted. Bones/joints: Mild scoliosis. Organs: Absent gallbladder. XR/XR chest 2V* [id number] IMPRESSION: 1. Severe COPD with lung fibrosis. 2. Progressive areas of bilateral pneumonia or pneumonitis. Acute on chronic lung disease is likely. 3. Advise appropriate close follow-up.
== END 2022-12-01 15:58 | disposition home or self-care (01) ==
PROVIDERS: PCP Clinical Nurse Specialist Adult Health; Visit Provider Clinical Nurse Specialist Adult Health
DX: J22 Unspecified acute lower respiratory infection (principal); J44.9 Chronic obstructive pulmonary disease, unspecified
CPT/HCPCS: 71046

== ENCOUNTER → 2022-12-02 12:40 | Outpatient (BNVA) | payer MEDICARE, BC, SELFPAY | PROVIDERS: PCP Clinical Nurse Specialist Adult Health; Visit Provider Clinical Nurse Specialist Adult Health | DX: J22 Unspecified acute lower respiratory infection (principal) | CPT/HCPCS: 85025; 85651; 86140 ==

== ENCOUNTER 2022-12-03 03:07 | Inpatient (IN) | payer MEDICARE, BC, SELFPAY ==
[2022-12-03] VITALS (19 sets, daily range): BP systolic 103–174; BP diastolic 55–103; PULSE 74–145; RESP 16–29; TEMP 36.5–37; O2SAT 91–98; BMI 34.2; BMI 30.2
--- NOTE | 2022-12-03 03:11 | ECG_ITS ---
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 Measurements Intervals [place] Rate: 149 P: 0 CA: 0 QRS: -10 QRSD: 85 T: 17 QT: 264 QTc: 416 Interpretive Statements ATRIAL FIBRILLATION WITH RAPID VENTRICULAR RESPONSE NONSPECIFIC ST & T-WAVE ABNORMALITY Compared to ECG 06/25/2020 09:10:54 Sinus rhythm no longer present T-wave abnormality still present Electronically Signed On 12-03-2022 11:00:34 CDT by Mason Arambula M.D. [id number] f
--- NOTE | 2022-12-03 03:11 | XRR_ITS ---
PROCEDURE INFORMATION: Exam: XR Chest Exam date and time: 12/03/2022 3:18 AM Age: 87 years old Clinical indication: Pain; Prior surgery; Surgery type: Breast biopsy. Gb; Patient HX: C/O chest pressure. History of pulmonary fibrosis. ; Additional info: Cp TECHNIQUE: Imaging protocol: Radiologic exam of the chest. Views: 1 view. Total images: [id number] COMPARISON: CR XR chest 2V* [id number] 12/01/2022 4:23 PM FINDINGS: Lungs: Interval worsening of bilateral pleuroparenchymal disease. Pleural spaces: No pneumothorax. Heart/Mediastinum: Heart is enlarged but stable when compared to the prior exam. Vasculature: Atherosclerosis is evident. Bones/joints: Osseous structures are unchanged from the prior exam. XR/XR chest 1V portable [id number] IMPRESSION: 1. Heart is enlarged but stable when compared to the prior exam. 2. Interval worsening of bilateral pleuroparenchymal disease.
--- NOTE | 2022-12-03 03:12 | ED_ITS ---
HPI - Chest Pain General: Chief Complaint: Chest Pain Stated Complaint: chest pressure Time Seen by Provider: 12/03/22 03:07 Source: patient and EMS Mode of arrival: EMS Limitations: no limitations History of Present Illness: 87-year-old female has a history of pulmonary fibrosis she states that she had a slight cough some dyspnea over the last 3 to 4 days and states that tonight started on 8 PM she is having worsening dyspnea along with some chest pressure. States pain is currently a 2 out of 10 and states she feels like she is getting a deep breath and she denies any fevers she does have a history of A-fib with EMS she is in A-fib with RVR. Associated symptoms: Reports dyspnea and palpitations; Deny abdominal pain, fever(s), nausea or vomiting Review of Systems Const: Denies: fever(s), chills, body aches or change in appetite Eyes: Denies: eye discomfort ENMT: Denies: throat pain or dental pain Card: Reports: chest pain, palpitations and irregular heart rhythm Resp: Reports: dyspnea and non-productive cough GI: Denies: abdominal pain, nausea, vomiting or diarrhea : Denies: dysuria Musc: Denies: neck pain or back pain Skin/Breast: Denies: rash Neuro: Denies: headache(s) PFSH ED PFSH: Medical History Atherosclerotic heart disease of [place] coronary artery without angina pectoris Atrial fibrillation Cystitis cystica Fatigue GERD (gastroesophageal reflux disease) Gross hematuria Hyperlipidemia Hypertension Obstructive sleep apnea Pt did not like CPAP Syncope Type 2 diabetes mellitus Surgical History History of repair of hiatal hernia Hx of breast biopsy Hx of cholecystectomy Hx of hysterectomy Hx of laminectomy Hx of rotator cuff surgery Family History Father Diabetes Hypertension CAD (coronary artery disease) Mother Hypertension CAD (coronary artery disease) Sister Cancer Grandmother Cancer Other Bleeding disorder Social History Smoking and tobacco status: never smoked Second hand smoke exposure: No Alcohol intake: never Substance/Drug Use: never Lives independently: Yes Household members: none Marital status: / Current occupational status: retired Do you think of yourself as: Straight/Heterosexual Physical Exam Const: COMMON NORMALS: patient oriented x3 HENMT: COMMON NORMALS: normocephalic and atraumatic HEAD & SCALP: normocephalic and atraumatic Eye: COMMON NORMALS: conjunctivae normal CONJUNCTIVA: Yes conjunctivae normal Neck/C-Spine: COMMON NORMALS: full ROM and supple Chest: COMMONS NORMALS: normal inspection of the chest and normal palpation of entire chest wall Resp: COMMON NORMALS: normal respiratory effort, No retractions and No use of accessory muscles AUSCULTATION: rales Cardio: COMMON NORMALS: No murmurs present (Cardio) RATE: tachycardic RHYTHM: abnormal rhythm irregularly irregular GI: COMMON NORMALS: Normal to inspection, nondistended, normoactive bowel sounds present, Soft to palpation, non-tender and no masses PALPATION: Yes Soft to palpation Extremity: COMMON NORMALS: normal to inspection and full ROM Neuro: COMMON NORMALS: patient oriented x3, moves all extremities and no focal motor deficits Psych: COMMON NORMALS: mental status grossly normal, Normal thought process present and cooperative THOUGHT PROCESS: Normal thought process present Skin: COMMON NORMALS: no rashes or lesions noted and no wounds GENERAL SKIN EXAM: no rashes or lesions noted Course Vital Signs: Vital signs: Vital Signs Pulse Rate 126 H 12/03/22 03:11 Respiratory Rate 24 H 12/03/22 03:11 Blood Pressure 174/103 12/03/22 03:11 Pulse Oximetry 93 12/03/22 03:11 Oxygen Delivery Me thod Room Air 12/03/22 03:11 MDM - Chest Pain Medical Decision Making Patient presents here with A-fib with RVR heart rate was usually in the 160s improved to the 1 teens after 20 mg of Cardizem did have to start her on a Cardizem drip due to continued tachycardia her D-dimer is negative no signs of pulmonary embolism her pains improved she has no signs of dissection first troponin is 12 we will get a 2-hour Trope spoke to the hospitalist will admit to cardiac stepdown for her A-fib with RVR on Cardizem drip. Medical Records I reviewed the patient's medical records. Lab Data I reviewed the patient's lab results. 12/03/22 03:29 12/03/22 03:29 Laboratory Results WBC 12.4 10^3/uL (4.0-10.0) H 12/03/22 03: RBC 4.91 10^6/uL (4.1-5.3) 12/03/22 03:29 Hgb 14.4 g/dL (11.5-15.3) 12/03/22 03: Hct 45.2 % (37.0-47.0) 12/03/22 03: MCV 92.1 fl (81-99) 12/03/22 03: MCH 29.3 pg (28.0-34.0) 12/03/22 03: MCHC 31.9 g/dL (30.0-36.0) 12/03/22 03: RDW 13.3 % (12.1-15.1) 12/03/22 03: Plt Count 229 10^3/cmm (130-400) 12/03/22 03: MPV 10.3 fL (7.4-10.4) 12/03/22 03: Neut % (Auto) 78.9 % 12/03/22 03: Lymph % (Auto) 14.4 % 12/03/22 03: [place] % (Auto) 5.2 % 12/03/22 03: Eos % (Auto) 0.3 % 12/03/22 03: Baso % (Auto) 0.2 % 12/03/22 03: Neut # (Auto) 9.77 10^3/uL (1.8-7.7) H 12/03/22 03: Lymph # (Auto) 1.8 10^3/uL (0.8-4.8) 12/03/22 03:29 [place] # (Auto) 0.7 10^3/uL (0.2-0.9) 12/03/22 03:29 Eos # (Auto) 0.0 10^3/uL (0.0-0.8) 12/03/22 03:29 Baso # (Auto) 0.0 10^3/uL (0.0-0.1) 12/03/22 03:29 Nucleated RBC % (auto) 0 % 12/03/22 03:29 Nucleated RBCs # 0.0 /100WBC 12/03/22 03:29 PT 20.90 SECONDS (12.1-14.9) H 12/03/22 03:29 INR 1.73 (0.8-1.2) H 12/03/22 03:29 D-Dimer 0.42 ug/mIFEU (0-0.59) 12/03/22 03:29 Sodium 140 mmol/L (136-145) 12/03/22 03:29 Potassium 4.4 mmol/L (3.5-5.1) 12/03/22 03:29 Chloride 101 mmol/L (98-107) 12/03/22 03:29 Carbon Dioxide 25 mmol/L (22-29) 12/03/22 03:29 Anion Gap 18.4 (5-19) 12/03/22 03:29 BUN 18 mg/dL (8-23) 12/03/22 03:29 Creatinine 0.7 mg/dL (0.5-0.9) 12/03/22 03:29 GFR Calculation Not Reportable 12/03/22 03:29 Glucose 208 mg/dL (65-115) H 12/03/22 03:29 POC Glucose 200 mg/dL (70-110) H 12/03/22 03:16 Calculated Osmolality 298 mOsm/kg (285-295) H 12/03/22 03:29 Calcium 9.2 mg/dL (8.5-10.5) 12/03/22 03:29 Total Bilirubin 0.8 mg/dL (0.15-1.2) 12/03/22 03:29 AST 20 U/L (0-32) 12/03/22 03:29 ALT 24 U/L (0-33) 12/03/22 03:29 Alkaline Phosphatase 74 U/L (35-105) 12/03/22 03:29 Troponin T Baseline 12 ng/L (0-10) H 12/03/22 03:29 Total Protein 6.5 g/dL (6.6-8.7) L 12/03/22 03:29 Albumin 3.9 g/dL (3.5-5.2) 12/03/22 03:29 Globulin 2.6 g/dL (1.3-4.6) 12/03/22 03:29 EKG Data EKG 1: I personally reviewed and interpreted this EKG as follows: EKG interpretation date: 12/03/22 EKG interpretation time: 03:12 Interpretation: afib with rvr hr [address] or t wave abnormalities qrs 85 qtc 349 Critical Care Time Critical Care Time: Critical Care Time: Yes Total Critical Care Time: 40 Attestation: The high probability of a clinically significant, sudden or life threatening deterioration of the patient's cv system(s) required my full and direct attention, intervention and personal management. The critical care time is as shown. This time is in addition to time spent performing any reported procedures but includes the following: [x] Data and vital sign review and interpretation [x] Patient assessment, examination and intervention [x] Documentation [x] Medication orders and management Discharge Plan Discharge Patient Disposition: Admitted As Inpatient Admit Provider: Sugey Casey Clinical Impression: Atrial fibrillation with rapid ventricular response Condition: Stable Coding Level of Care Code ED Milled Rice Broker for David Arreola
[2022-12-03 03:18] LABS: Glucose Point of Care 200 mg/dL (70-110)
[2022-12-03] MEDS: dilTIAZem 5 mg/mL SDV 5 mL 20 MG IVP (03:26)
[2022-12-03 03:42] LABS: Basophils % 0.2 %; Eosinophils % 0.3 %; Hematocrit 45.2 % (37.0-47.0); Hemoglobin 14.4 g/dL (11.5-15.3); Lymphocytes # 1.8 10^3/uL (0.8-4.8); Lymphocytes % 14.4 %; Mean Corpuscular HGB Conc 31.9 g/dL (30.0-36.0); Mean Corpuscular Hemoglobin 29.3 pg (28.0-34.0); Mean Corpuscular Volume 92.1 fl (81-99); Mean Platelet Volume 10.3 fL (7.4-10.4); Monocytes # 0.7 10^3/uL (0.2-0.9); Monocytes % 5.2 %; Neutrophils # 9.77 10^3/uL (1.8-7.7); Neutrophils % 78.9 %; Nucleated Red Blood Cells % 0 %; Platelet Count 229 10^3/cmm (130-400); Red Blood Count 4.91 10^6/uL (4.1-5.3); Red Cell Distribution Width 13.3 % (12.1-15.1); White Blood Count 12.4 10^3/uL (4.0-10.0)
[2022-12-03 03:59] LABS: INR 1.73 (0.8-1.2)
[2022-12-03 04:02] LABS: D Dimer 0.42 ug/mIFEU (0-0.59)
[2022-12-03 04:03] LABS: Troponin(5th) Baseline 12 ng/L (0-10)
[2022-12-03 04:10] LABS: Alanine Aminotransferase 24 U/L (0-33); Albumin Level 3.9 g/dL (3.5-5.2); Alkaline Phosphatase 74 U/L (35-105); Aspartate Amino Transferase 20 U/L (0-32); Blood Urea Nitrogen 18 mg/dL (8-23); Calcium 9.2 mg/dL (8.5-10.5); Carbon Dioxide 25 mmol/L (22-29); Chloride 101 mmol/L (98-107); Globulin 2.6 g/dL (1.3-4.6); Glucose 208 mg/dL (65-115); Osmolality Calculated 298 mOsm/kg (285-295); Sodium 140 mmol/L (136-145); Total Bilirubin 0.8 mg/dL (0.15-1.2); Total Protein 6.5 g/dL (6.6-8.7)
[2022-12-03 04:12] LABS: Anion Gap 18.4 (5-19); Potassium 4.4 mmol/L (3.5-5.1)
[2022-12-03] MEDS: sodium chloride 0.9% 1,000 ML 999 ML IV (04:14)
[2022-12-03] MEDS: dilTIAZem 100 MG in sodium chloride 0.9% (add-van) 100 ML IV (04:48)
--- NOTE | 2022-12-03 05:11 | ECG_ITS ---
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 Measurements Intervals [place] Rate: 117 P: 0 NE: 0 QRS: 37 QRSD: 87 T: 39 QT: 313 QTc: 438 Interpretive Statements ATRIAL FIBRILLATION WITH RAPID VENTRICULAR RESPONSE Compared to ECG 12/03/2022 03:12:36 T-wave abnormality no longer present Electronically Signed On 12-03-2022 11:03:05 CDT by Mason Arambula M.D. [email or web address]/OM/[id number]
[2022-12-03 05:38] LABS: Troponin 5 2HR 9.76 ng/L (0-10)
[2022-12-03 05:46] LABS: Troponin 5 2HR Delta -2.24 ABS# (0-10)
--- NOTE | 2022-12-03 05:55 | P.HP_ITS ---
Providers/Chief Complaint Admitting Physician: Sugey Casey MD Primary Care Provider: Saleem Rosado Chief Complaint: chest pressure History of Present Illness Eloisa Campbell is a 87 year old female with past medical history of atrial fibrillation, fatigue, GERD, hematuria, hyperlipidemia, hypertension, obstructive sleep apnea not compliant with CPAP, type 2 diabetes mellitus, p ulmonary fibrosis presented to the hospital today with complaint of dyspnea that has been worsening but she is also been having some chest pressure. On arrival to ER she stated the pain was around 2 out of 10 and it was worse when she took a deep breath however otherwise there was no pain. She states she has just been feeling more more short of breath recently and now has a drop in oxygen in the ER. Denies any true history of previously diagnosed heart failure. Denies fever, nausea, vomiting, diarrhea, abdominal pain. She also complains of a cough not productive of any sputum at this time. She follows with pulmonology and recently saw them on 10 November. She has been diagnosed with chronic fibrotic hypersensitivity pneumonitis however not confirmed on open lung biopsy. Patient was not interested in pursuing a biopsy at this stage. She has been off her prednisone and only needing as needed albuterol. She did have a CT scan of the chest done in September 2022 which did not reveal any progression of fibrotic disease compared to 2019. She was prescribed inhaled corticosteroid however she did not use it so far. She is to follow-up with pulmonology again in 9 months. In the ER EKG showed A-fib with RVR with rate of 160s. She did get Cardizem 20 push and was started on a Cardizem drip. D-dimer was negative. CTA was not pursued. Initial troponin 12. 2-hour and 6-hour troponin pending at this time. WBC 12.4, hemoglobin 14.4, platelets 229, sodium 140, potassium 4.4, creatinine 0.7, chest x-ray showed enlarged heart but stable when compared to prior exam. Interval worsening of bilateral pleural parenchymal disease. She was recently seen at her primary care's office 1 week ago and she was given a steroid pack with a taper and Levaquin. She has completed that already. Medications/Allergies Home Medications Medication Instructions Recorded Confirmed Last Taken Type cholecalciferol (vitamin D3) 25 1,000 unit PO BID 08/29/19 11/27/22 06/25/20 History mcg (1,000 unit) capsule furosemide 20 mg tablet (Lasix) 20 mg PO DAILY 06/25/20 11/27/22 06/25/20 History potassium chloride 10 mEq 10 meq PO .qod 09/03/21 11/27/22 Unknown History capsule,extended release clopidogrel 75 mg tablet 75 mg PO DAILY #90 tabs 12/31/21 11/27/22 Unknown Rx apixaban 5 mg tablet (Eliquis) 5 mg PO BID #30 tabs 03/04/22 11/27/22 Unknown Rx methenamine hippurate 1 gram tablet 1 g PO DAILY #30 tabs 03/11/22 11/27/22 Unknown Rx ascorbic acid (vitamin C) 1,000 mg 1 g PO DAILY 07/17/22 11/27/22 Unknown History tablet metoprolol tartrate 50 mg tablet 25 mg PO BID #30 tabs 07/17/22 11/27/22 Unknown Rx pioglitazone 15 mg tablet 15 mg PO DAILY #30 tabs 07/17/22 11/27/22 Unknown Rx valsartan 160 mg tablet 160 mg PO .1 1/2 daily 30 days #90 07/17/22 11/27/22 Unknown Rx tabs insulin glargine 100 unit/mL (3 62 unit (0.62 mL) SUBCUT .Qpm #15 11/18/22 11/27/22 Unknown Rx mL) subcutaneous pen (Lantus mL Solostar U-100 Insulin) prednisone 20 mg tablet See Rx Instructions .Route 11/27/22 11/27/22 Unknown Rx .COMPLEX #14 tabs cefdinir 300 mg capsule 300 mg PO Q12H #14 caps 12/02/22 Unknown Rx doxycycline monohydrate 100 mg 100 mg PO BID #14 caps 12/02/22 Unknown Rx capsule Allergies Allergy/AdvReac Type Severity Reaction Status Date / Time isosorbide Allergy HEADACHE Verified 11/27/22 11:16 lisinopril Allergy COUGH Verified 11/27/22 11:16 PFSH Acute PFSH: Medical History Atherosclerotic heart disease of [place] coronary artery without angina pectoris Atrial fibrillation Cystitis cystica Fatigue GERD (gastroesophageal reflux disease) Gross hematuria Hyperlipidemia Hypertension Obstructive sleep apnea Pt did not like CPAP Syncope Type 2 diabetes mellitus Surgical History History of repair of hiatal hernia Hx of breast biopsy Hx of cholecystectomy Hx of hysterectomy Hx of laminectomy Hx of rotator cuff surgery Family History Father Diabetes Hypertension CAD (coronary artery disease) Mother Hypertension CAD (coronary artery disease) Sister Cancer Grandmother Cancer Other Bleeding disorder Social History Smoking and tobacco status: never smoked Second hand smoke exposure: No Alcohol intake: never Substance/Drug Use: never Lives independently: Yes Household members: none Marital status: / Current occupational status: retired Do you think of yourself as: Straight/Heterosexual Vitals/I&O/Wt Last Vital Signs Temp 98.6 F 12/03/22 05:29 Pulse 114 H 12/03/22 05:29 Resp 29 H 12/03/22 05:29 BP 144/101 12/03/22 05:29 Pulse Ox 98 12/03/22 05:29 O2 Del Method Room Air 12/03/22 05:17 Weight last 48 hrs Weight 82.236 kg Weight 79.379 kg Physical Exam Narrative: General: Alert oriented x3, patient seen sitting up in bed appearing comfortable at this time on room air saturating 98%. HEENT: Normocephalic, atraumatic, EOMI, Cardio: Irregularly irregular, normal S1-S2, Respiratory: Velcro-like crackles bilaterally posteriorly up to the midlung, no wheezing, occasional rhonchi in the anterior chest bilaterally GI: Abdomen soft, nontender, nondistended, bowel sounds + Behavior: Appropriate and cooperative Extremities: Bilateral 1+ pedal edema present. 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 use: with termite inspector use Qualified Code(s): E11.9 - Type 2 diabetes mellitus without complications; Z79.4 - senior care (current) use of insulin (3) Hypersensitivity pneumonitis: (4) Obstructive sleep apnea: (5) Hypertension: Qualifiers: Hypertension type: secondary to endocrine disorders Qualified Code(s): I15.2 - Hypertension secondary to endocrine disorders (6) Hyperlipidemia: Qualifiers: Hyperlipidemia type: mixed hyperlipidemia Qualified Code(s): E78.2 - Mixed hyperlipidemia (7) Atherosclerotic heart disease of [place] coronary artery without angina pectoris: Qualifiers: [place] vs. transplanted heart: [place] heart Qualified Code(s): I25.10 - Atherosclerotic heart disease of [place] coronary artery without angina pectoris Plan #Atrial fibrillation with RVR #Pulmonary fibrosis #Insulin-dependent diabetes mellitus #Chronic anticoagulation with Eliquis #Possible flare of pulmonary fibrosis #Hypertension #Obstructive sleep apnea #GERD ? Check echocardiogram ? Continue Eliquis 5 twice daily ? Sliding scale insulin moderate intensity ? Lantus 62 units daily ? Solu-Medrol 60 every 8 hours IV ? Hold oral antihyperglycemics - EKG did not show acute ischemic changes - Follow troponin trend. ? Valsartan home dose ? Uptitrate metoprolol. Will place on 50 twice daily today. Continue Cardizem drip and wean off as able. ? Continue clopidogrel ? Reviewed chest x-ray image. It appears worse to be compared to previous one done 2 days ago. Will check chest CT without contrast. ? Consider pulmonology consultation ? Check BNP ? Check echo. Previous 1 from 2019 was normal ?I will hold off on Lasix for now. -Patient was ordered a normal saline bolus from the ER. She received about 500 cc and has had 2 urinate 4 times already. Does have bilateral pedal edema. We will hold off on further IV fluids at this time. - check tsh, procalcitonin, mg, bmp, cbc - keep K >4, Mg>2 Okay for CPR and ACLS protocol however does not want to be intubated. Daughter in agreement was present at bedside at this time. SCDs, Eliquis should suffice for DVT prophylaxis Attestations Medical Necessity Statement*: > 2 midnight stay for management of afib rvr Other Coding Information Focused coding review requested Diagnoses Atrial fibrillation with rapid ventricular response I48.91 Type 2 diabetes mellitus E11.9; Z79.4 Diabetes mellitus complication status: without complication Diabetes mellitus termite inspector insulin use: with mcc use Hypersensitivity pneumonitis J67.9 Obstructive sleep apnea G47.33 Hypertension I15.2 Hypertension type: secondary to endocrine disorders Hyperlipidemia E78.2 Hyperlipidemia type: mixed hyperlipidemia Atherosclerotic heart disease of [place] coronary artery without angina pectoris I25.10 [place] vs. transplanted heart: [place] heart
--- NOTE | 2022-12-03 06:13 | USCV_ITS ---
Eloisa Campbell Age: 87 Gender: F : 1935 Exam Date: 12/03/2022 14:36 Ordering Phys: Sugey Casey MD Technologist: Raymon Shah Exam Location: [facility] [place] Indication: afib BP: 103 / 55 HR: 46 Rhythm: Atrial fibrillation Technical Quality: Adequate MEASUREMENTS (Male / Female) Normal Values 2D ECHO LV Diastolic Diameter PLAX 3.9 cm 4.2 - 5.9 / 3.9 - 5.3 cm LV Systolic Diameter PLAX 3.0 cm IVS Diastolic Thickness 1.1 cm 0.6 - 1.0 / 0.6 - 0.9 cm IVS Systolic Thickness 1.8 cm LVPW Diastolic Thickness 1.2 cm 0.6 - 1.0 / 0.6 - 0.9 cm LVPW Systolic Thickness 1.5 cm LVOT Diameter 2.0 cm LV Ejection Fraction 2D Teich 43.9 % LV Ejection Fraction MOD 2C 61.5 % LV Ejection Fraction 2C AL 60.5 % LA Diameter 4.9 cm M-MODE Aortic Annulus Diameter 2.9 cm LA Ao Ratio MM 1.9 MV E Point Septal Separation 0.6 cm DOPPLER AV Peak Velocity 165.0 cm/s LVOT Peak Velocity 94.0 cm/s AV Area Cont Eq vti 1.6 cm squared AV Area Cont Eq pk 1.8 cm squared TR Peak Velocity 328.0 cm/s TR Peak Gradient 43.0 mmHg TV Peak E Velocity 80.0 cm/s Right Atrial Pressure 3.0 mmHg Pulmonary Artery Systolic Pressu 46.0 mmHg RV Acceleration Time 0.1 s FINDINGS Left Ventricle Normal left ventricular size, systolic function and wall thickness, with no regional wall motion abnormalities. Left ventricular ejection fraction is estimated at 55 %. Rhythm precludes evaluation of diastolic function. Right Ventricle Normal right ventricular size and systolic function. Mild pulmonary hypertension, RVSP 46 mmHg. Right Atrium Mildly increased right atrial size. Left Atrium Moderately increased left atrial size. Mitral Valve Structurally normal mitral valve. Moderate-severe mitral valve regurgitation. Aortic Valve Structurally normal aortic valve without significant sclerosis or stenosis. There is no aortic regurgitation. Tricuspid Valve Structurally normal tricuspid valve. Mild tricuspid valve regurgitation. Pulmonic Valve Pulmonic valve not well visualized. Pericardium Normal pericardium without effusion. Aorta Normal ascending aorta dimension. IVC The inferior vena cava appears normal. CONCLUSIONS Normal left ventricular size, systolic function and wall thickness, with no regional wall motion abnormalities. Left ventricular ejection fraction is estimated at 55 %. Rhythm precludes evaluation of diastolic function. Normal right ventricular size and systolic function. Mild pulmonary hypertension, RVSP 46 mmHg. Mildly increased right atrial size. Moderately increased left atrial size. Structurally normal mitral valve. Moderate-severe mitral valve regurgitation. Compared to the previous study done 05/24/20, the mitral regurgitation has worsened. Dr. Haile Hansen MD (Electronically Signed) Final Date: 04 December 2022 05:51 S
--- NOTE | 2022-12-03 06:13 | CT_ITS ---
WS: [id number] CT CHEST TECHNIQUE: Noncontrast CT of the chest with coronal and sagittal reformatted images. CLINICAL INFORMATION: pulm fibrosis, upper resp symptoms, worse cxr COMPARISON: CT October 07, 2022 DLP: 439.[address] scans at [facility] use at least one of these dose optimization techniques: automated e xposure control; mA and/or kV adjustment per patient size (includes targeted exams where dose is matc hed to clinical indication); or iterative reconstruction. FINDINGS: History of pulmonary fibrosis with peripheral scattered reticular opacities and interstitial thickeni ng bilaterally. Progressed bilateral diffuse groundglass airspace infiltrates worse in the perihilar regions and both lower lobes. Mild RIGHT and trace LEFT pleural fluid is new from previous. Recommend correlation for pneumonia versus pulmonary edema. Cardiomegaly. Coronary calcification. Aortic calcification. No axillary lymphadenopathy. Prominent m ediastinal and paratracheal lymph nodes appears slightly progressed likely reactive. Small to moderat e esophageal hiatal hernia. Cholecystectomy clips. Partially visualized RIGHT renal cyst. No axillary lymphadenopathy. Hypertroph ic changes thoracic spine. CT/CT chest wo con [id number] IMPRESSION: 1. New bilateral groundglass airspace infiltrates more prominent in the perihi lar regions. Recommend correlation for pneumonia versus pulmonary edema. Small RIGHT and trace LEFT pleural fluid. 2. No focal consolidation. 3. Marked cardiomegaly. 4. Prominent peribronchial lymph nodes slightly progressed compared to previou s likely reactive. 5. Cholecystectomy clips. 6. Small moderate esophageal hiatal hernia.
[2022-12-03 07:19] LABS: Procalcitonin 0.04 ng/mL (0-0.5)
[2022-12-03 07:20] LABS: NT Pro B Type Natriuretic Pept 954 pg/mL (0-450); Thyroid Stimulating Hormone 2.09 uIU/mL (0.27-4.20)
[2022-12-03 07:28] LABS: Estmated Average Glucose 126
[2022-12-03 07:48] LABS: ABG PCO2 40.6 mmHg (35-45); ABG PH Result 7.45 (7.35-7.45); Alveolar-Arterial Oxygen Gradi 8.9 mmHg (5-10); Arterial Blood Gas Hematocrit 43.9 % (37-47); Base Excess ABG 4.1 mmol/L (-2.0-2.0); Blood Gas Allen Test Pos; Blood Gas Sample Site Radial, left; Blood Gas Sample Type Arterial; Carboxyhemoglobin 1.6 %THgb (0.4-20.1); HCO3 ABG 28.4 mmol/L (22-26); HGB O2 Sat 95.2 % (95-100); Ionized Calcium Level - ABG 1.2 mmol/L (1.1-1.4); Methemoglobin 0.6 % (0.4-1.5); Oxygen Device NC; Oxygen Saturation ABG 97.3; PO2 ABG 80.9 mmHg (80.0-100.0); Potassium Level - ABG 4.1 mmol/L (3.5-5.0); Total Hemoglobin 14.3 g/dL (12-16)
[2022-12-03] MEDS: ipratropium-albuterol 3 mL Neb INHALATION ×3 (07:57→19:43)
[2022-12-03 08:05] LABS: Glucose Point of Care 195 mg/dL (70-110)
[2022-12-03] MEDS: insulin lispro 100 unit/1 mL SUBCUT ×4 (08:15→20:55)
[2022-12-03] MEDS: metoprolol tartrate 50 mg Tablet PO ×2 (08:15→20:21)
[2022-12-03] MEDS: losartan 50 mg Tablet 75 MG PO (08:16)
[2022-12-03] MEDS: ascorbic acid 500 mg Tablet 1000 MG PO (08:16)
[2022-12-03] MEDS: apixaban 5 mg Tablet PO ×2 (08:17→20:21)
[2022-12-03] MEDS: clopidogrel 75 mg Tablet PO (08:17)
--- NOTE | 2022-12-03 09:44 | ECG_ITS ---
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 Measurements Intervals [place] Rate: 93 P: 0 CA: 0 QRS: -3 QRSD: 86 T: 12 QT: 353 QTc: 441 Interpretive Statements ATRIAL FIBRILLATION POSSIBLE ANTERIOR MYOCARDIAL INFARCTION , PROBABLY OLD [30 ms Q WAVE IN V3/V4, OR R < 0.2 mV IN V4] ABNORMAL RHYTHM ECG Compared to ECG 12/03/2022 05:31:07 Myocardial infarct finding now present Electronically Signed On 12-03-2022 11:02:48 CDT by Mason Arambula M.D. [id number]
[2022-12-03 10:02] LABS: Troponin 5 6HR 9.04 ng/L (0-10)
[2022-12-03 10:12] LABS: Troponin 5 6HR Delta -2.96 ng/L (0-12)
[2022-12-03] MEDS: FUROsemide 10 mg/mL SDV 2mL 20 MG IVP (11:55)
[2022-12-03 17:16] LABS: Glucose Point of Care 244 mg/dL (70-110)
[2022-12-03 17:16] LABS: Glucose Point of Care 240 mg/dL (70-110)
--- NOTE | 2022-12-03 18:31 | PM.CONSULT ---
Providers/Reason For Consult Consulting Physician/Specialty*: Kwan Pena MD, [facility] sleep/pulmonary critical care Reason for Consult*: Hypoxia and patient with underlying pulmonary fibrosis Requesting Physician: Sugey Casey MD Attending Physician: Anand Granado MD Primary Care Provider: Saleem Rosado History of Present Illness History of Present Illness Eloisa Campbell is a 87 year old female with past medical history of chronic fibrotic hypersensitivity pneumonitis, atrial fibrillation, fatigue, GERD, hypertension, hyperlipidemia, obstructive sleep apnea not compliant with CPAP, type 2 diabetes came to emergency room yesterday night with complaints of dyspnea and some chest pressure. She was previously following Dr. Bejarano-I have seen her in clinic earlier this month for chronic fibrotic hypersensitivity pneumonitis, this was not confirmed by open lung biopsy as she refused to pursue for lung biopsies given her age.he diagnosis of hypersensitivity pneumonitis is supported by bilateral upper lobe predominant mosaicism, reticulation and mild degree of honeycombing with traction bronchiectasis. This was seen earliest about [address] scan that has progressed over the last 5 years.? The patient had also given history of moving into a new house around the same time.? Repeat CT chest 10/07/2022?showed moderate pulmonary fibrosis, similar to the prior study of 07/20/2020 without obvious change or progression. However her CTA today morning showed new bilateral groundglass airspace infiltrates more prominent in perihilar regions suggesting mostly pulmonary edema. There is small and trace left pleural effusion. No focal consolidation. Marked cardiomegaly. Prominent peribronchial lymph nodes slightly progressed likely reactive. Her BNP is elevated. Procalcitonin low. Her troponins were negative Given her increased airspace opacities centrally-suspect fluid overload secondary to triggered event of A-fib RVR She complained of nonproductive cough.-She was evaluated by her primary care physician 1 week ago and was given steroid taper as well as levofloxacin which she completed. The patient had a pulmonary function test in April 2020 which showed moderate restriction-with FEV1 FVC ratio of 94% with FEV1 of 1.49 L which was 78% of predicted and forced vital capacity of 1.59 L which is 62% of predicted.? Her total lung capacity was reduced at 52% and DLCO was 78%. There was some desaturation in ER-and she was placed on 3 L nasal cannula. She was in A-fib RVR with rate of 160s. She Cardizem 20 IV push and started on Cardizem drip. Pulmonary consult requested for new requirement of supplemental oxygen and patient with underlying chronic fibrosing hypersensitivity pneumonitis. Today morning as inpatient to bedside She is saturating 97% on 1 L nasal cannula-she can come off supplemental oxygen Tells me that she is doing okay now but yesterday she did not feel good. ABG on 2 L oxygen is acceptable with PaO2 80 and PF ratio > 300 Review of Systems General: Reports: 10 or more systems reviewed and unremarkable except in HPI and below Medications/Allergies Home Medications Medication Instructions Recorded Confirmed Last Taken Type cholecalciferol (vitamin D3) 25 1,000 unit PO BID 08/29/19 12/03/22 06/25/20 History mcg (1,000 unit) capsule clopidogrel 75 mg tablet 75 mg PO DAILY #90 tabs 12/31/21 12/03/22 Unknown Rx apixaban 5 mg tablet (Eliquis) 5 mg PO BID #30 tabs 03/04/22 12/03/22 Unknown Rx methenamine hippurate 1 gram tablet 1 g PO DAILY #30 tabs 03/11/22 12/03/22 Unknown Rx ascorbic acid (vitamin C) 1,000 mg 1 g PO DAILY 07/17/22 12/03/22 Unknown History tablet metoprolol tartrate 50 mg tablet 25 mg PO BID #30 tabs 07/17/22 12/03/22 Unknown Rx pioglitazone 15 mg tablet 15 mg PO DAILY #30 tabs 07/17/22 12/03/22 Unknown Rx valsartan 160 mg tablet 160 mg PO .1 1/2 daily 30 days #90 07/17/22 12/03/22 Unknown Rx tabs insulin glargine 100 unit/mL (3 62 unit (0.62 mL) SUBCUT .Qpm #15 11/18/22 12/03/22 Unknown Rx mL) subcutaneous pen (Lantus mL Solostar U-100 Insulin) prednisone 20 mg tablet See Rx Instructions .Route 11/27/22 12/03/22 Unknown Rx .COMPLEX #14 tabs cefdinir 300 mg capsule 300 mg PO Q12H #14 caps 12/02/22 12/03/22 Unknown Rx doxycycline monohydrate 100 mg 100 mg PO BID #14 caps 12/02/22 12/03/22 Unknown Rx capsule esomeprazole magnesium 20 mg 20 mg PO DAILY 12/03/22 12/03/22 Unknown History capsule,delayed release (Nexium) levofloxacin 500 mg tablet 500 mg PO DAILY 12/03/22 12/03/22 Unknown History Allergies Allergy/AdvReac Type Severity Reaction Status Date / Time albuterol [From ProAir HFA] Allergy ALGY-Rash Verified 12/03/22 08:36 isosorbide Allergy HEADACHE Verified 12/03/22 08:36 lisinopril Allergy COUGH Verified 12/03/22 08:36 Current Medications Generic Name Dose Route Start Last Admin Trade Name Freq PRN Reason Stop Dose Admin Albuterol/Ipratropium 3 ml 12/03/22 08:00 12/03/22 15:36 Ipratropium-Albuterol 3 Ml Neb INHALATION 3 ml QID.RESPIRATORY KODY Administration Apixaban 5 mg 12/03/22 09:00 12/03/22 08:17 Apixaban 5 Mg Tablet PO 5 mg BID@0900,2100 KODY Administration Ascorbic Acid 1,000 mg 12/03/22 09:00 12/03/22 08:16 Ascorbic Acid 500 Mg Tablet PO 1,000 mg DAILY KODY Administration Clopidogrel Bisulfate 75 mg 12/03/22 09:00 12/03/22 08:17 Clopidogrel 75 Mg Tablet PO 75 mg DAILY KODY Administration Diltiazem HCl 100 mg/ Sodium 100 mls @ 0 mls/hr 12/03/22 04:00 12/03/22 14:21 Chloride IV Infused .Q0M KODY Titration Protocol Per Protocol Insulin Human Lispro 0 unit 12/03/22 08:00 12/03/22 16:58 Insulin Lispro 100 Unit/1 Ml SUBCUT 8 unit WM&BEDTIME KODY Administration Protocol Losartan Potassium 75 mg 12/03/22 09:00 12/03/22 08:16 Losartan 50 Mg Tablet PO 75 mg DAILY KODY Administration Methylprednisolone Sodium Succinate 60 mg 12/03/22 06:15 12/03/22 14:24 Methylprednisolone Sod Succ 125 Mg/2 Ml Inj IVP 60 mg Q8H KODY Administration Metoprolol Tartrate 50 mg 12/03/22 09:00 12/03/22 08:15 Metoprolol Tartrate 50 Mg Tablet PO 50 mg BID@0900,2100 KODY Administration PFSH Acute PFSH: Medical History Atherosclerotic heart disease of [place] coronary artery without angina pectoris Atrial fibrillation Cystitis cystica Fatigue GERD (gastroesophageal reflux disease) Gross hematuria Hyperlipidemia Hypertension Obstructive sleep apnea Pt did not like CPAP Syncope Type 2 diabetes mellitus Surgical History History of repair of hiatal hernia Hx of breast biopsy Hx of cholecystectomy Hx of hysterectomy Hx of laminectomy Hx of rotator cuff surgery Family History Father Diabetes Hypertension CAD (coronary artery disease) Mother Hypertension CAD (coronary artery disease) Sister Cancer Grandmother Cancer Other Bleeding disorder Social History Smoking and tobacco status: never smoked Second hand smoke exposure: No Alcohol intake: never Substance/Drug Use: never Lives independently: Yes Household members: none Marital status: / Current occupational status: retired Do you think of yourself as: Straight/Heterosexual Vitals/I&O/Wt Last Vital Signs Temp 97.7 F 12/03/22 11:24 Pulse 128 H 12/03/22 16:00 Resp 28 H 12/03/22 16:00 BP 126/82 12/03/22 16:00 Pulse Ox 92 12/03/22 16:00 O2 Del Method Room Air 12/03/22 16:00 O2 Flow Rate 2 12/03/22 08:00 12/03/22 12/03/22 12/03/22 06:59 14:59 22:59 Intake Total 17.375 / 17.375 1562.625 / 1562.625 240 / 1802.625 Output Total 325 / 325 150 / 475 Balance 17.375 / 17.375 1237.625 / 1237.625 90 / 1327.625 Weight last 48 hrs Weight 181 lb 4.8 oz Weight 175 lb Physical Exam Narrative: General: alert, NAD HEENT: conj clear, EOMI, PERRL, mmm, Neck: supple, no meningismus Heme: no cervical LAP Respiratory: Inspection: No visible deformity of the chest wall Palpation: Trachea is mildly deviated to the right, bilateral symmetric expansion Percussion: Bilateral tympanic percussion note both anterior and posteriorly Auscultation: Bibasilar inspiratory crepitations Cardiovascular: rrr, nl s1s2, no mrg Abdomen: soft, nt, nd, no r/g, bs+ Extremities: pulses +, 1+ pitting pedal edema, no c/c : no CVA tenderness Skin: intact, no rash MSK: no back or neck pain Neurologic: grossly intact Data 12/04/22 04:37 12/04/22 04:37 Other Labs: Radiology Impressions Chest X-Ray 12/03/22 03:11 IMPRESSION: 1. Heart is enlarged but stable when compared to the prior exam. 2. Interval worsening of bilateral pleuroparenchymal disease. Chest CT 12/03/22 06:13 IMPRESSION: 1. New bilateral groundglass airspace infiltrates more prominent in the perihilar regions. Recommend correlation for pneumonia versus pulmonary edema. Small RIGHT and trace LEFT pleural fluid. 2. No focal consolidation. 3. Marked cardiomegaly. 4. Prominent peribronchial lymph nodes slightly progressed compared to previous likely reactive. 5. Cholecystectomy clips. 6. Small moderate esophageal hiatal hernia. Laboratory Results WBC 12.4 10^3/uL (4.0-10.0) H 12/03/22 03:29 RBC 4.91 10^6/uL (4.1-5.3) 12/03/22 03:29 Hgb 14.4 g/dL (11.5-15.3) 12/03/22 03:29 Hct 45.2 % (37.0-47.0) 12/03/22 03:29 MCV 92.1 fl (81-99) 12/03/22 03:29 MCH 29.3 pg (28.0-34.0) 12/03/22 03:29 MCHC 31.9 g/dL (30.0-36.0) 12/03/22 03:29 RDW 13.3 % (12.1-15.1) 12/03/22 03:29 Plt Count 229 10^3/cmm (130-400) 12/03/22 03:29 MPV 10.3 fL (7.4-10.4) 12/03/22 03:29 Neut % (Auto) 78.9 % 12/03/22 03:29 Lymph % (Auto) 14.4 % 12/03/22 03:29 [place] % (Auto) 5.2 % 12/03/22 03:29 Eos % (Auto) 0.3 % 12/03/22 03: Baso % (Auto) 0.2 % 12/03/22 03: Neut # (Auto) 9.77 10^3/uL (1.8-7.7) H 12/03/22 03: Lymph # (Auto) 1.8 10^3/uL (0.8-4.8) 12/03/22 03:29 [place] # (Auto) 0.7 10^3/uL (0.2-0.9) 12/03/22 03: Eos # (Auto) 0.0 10^3/uL (0.0-0.8) 12/03/22 03: Baso # (Auto) 0.0 10^3/uL (0.0-0.1) 12/03/22 03: Nucleated RBC % (auto) 0 % 12/03/22 03: Nucleated RBCs # 0.0 /100WBC 12/03/22 03: PT 20.90 SECONDS (12.1-14.9) H 12/03/22 03: INR 1.73 (0.8-1.2) H 12/03/22 03:29 D-Dimer 0.42 ug/mIFEU (0-0.59) 12/03/22 03:29 Specimen Type Arterial 12/03/22 07:37 Sample Site Radial, left 12/03/22 07:37 ABG pH 7.45 (7.35-7.45) 12/03/22 07:37 ABG pCO2 40.6 mmHg (35-45) 12/03/22 07:37 ABG pO2 80.9 mmHg (80.0-100.0) 12/03/22 07:37 ABG HCO3 28.4 mmol/L (22-26) H 12/03/22 07:37 ABG O2 Saturation 97.3 12/03/22 07:37 ABG Base Excess 4.1 mmol/L (-2.0-2.0) H 12/03/22 07:37 [place] Test Pos 12/03/22 07:37 A-a O2 Gradient 8.9 mmHg (5-10) 12/03/22 07:37 Hematocrit 43.9 % (37-47) 12/03/22 07:37 Hgb O2 Saturation 95.2 % (95-100) 12/03/22 07:37 Carboxyhemoglobin 1.6 %THgb (0.4-20.1) 12/03/22 07:37 Methemoglobin 0.6 % (0.4-1.5) 12/03/22 07:37 Total Hemoglobin 14.3 g/dL (12-16) 12/03/22 07:37 Sodium 141.0 mmol/L (131-143) 12/03/22 07:37 Potassium 4.1 mmol/L (3.5-5.0) 12/03/22 07:37 Glucose 218.0 mg/dL (70-115) H 12/03/22 07:37 Ionized Calcium 1.2 mmol/L (1.1-1.4) 12/03/22 07:37 O2 Delivery Device Nc 12/03/22 07:37 O2 Liters/Min 2.0 % 12/03/22 07:37 FiO2 28.0 % 12/03/22 07:37 Production Gear Cutter ID [email or web address] 12/03/22 07:37 Sodium 140 mmol/L (136-145) 12/03/22 03:29 Potassium 4.4 mmol/L (3.5-5.1) 12/03/22 03:29 Chloride 101 mmol/L (98-107) 12/03/22 03:29 Carbon Dioxide 25 mmol/L (22-29) 12/03/22 03:29 Anion Gap 18.4 (5-19) 12/03/22 03:29 BUN 18 mg/dL (8-23) 12/03/22 03:29 Creatinine 0.7 mg/dL (0.5-0.9) 12/03/22 03:29 GFR Calculation Not Reportable 12/03/22 03:29 Glucose 208 mg/dL (65-115) H 12/03/22 03:29 POC Glucose 240 mg/dL (70-110) H 12/03/22 16:24 Estimat Average Glucose 126 12/03/22 03:29 Hemoglobin A1c 6.0 % (4.0-6.0) 12/03/22 03:29 Calculated Osmolality 298 mOsm/kg (285-295) H 12/03/22 03:29 Calcium 9.2 mg/dL (8.5-10.5) 12/03/22 03:29 Total Bilirubin 0.8 mg/dL (0.15-1.2) 12/03/22 03:29 AST 20 U/L (0-32) 12/03/22 03:29 ALT 24 U/L (0-33) 12/03/22 03:29 Alkaline Phosphatase 74 U/L (35-105) 12/03/22 03:29 Troponin T Baseline 12 ng/L (0-10) H 12/03/22 03:29 Troponin T 120 Minute 9.76 ng/L (0-10) 12/03/22 05:03 Delta Troponin T -2.24 ABS# (0-10) L 12/03/22 05:03 Troponin T Hi Sens 6Hr 9.04 ng/L (0-10) 12/03/22 09:20 Troponin T Hi Sens 6Hr Delta -2.96 ng/L (0-12) L 12/03/22 09:20 NT-Pro-B Natriuret Pep 954 pg/mL (0-450) H 12/03/22 03:29 Total Protein 6.5 g/dL (6.6-8.7) L 12/03/22 03:29 Albumin 3.9 g/dL (3.5-5.2) 12/03/22 03:29 Globulin 2.6 g/dL (1.3-4.6) 12/03/22 03:29 Procalcitonin 0.04 ng/mL (0-0.5) 12/03/22 03:29 TSH 2.09 uIU/mL (0.27-4.20) 12/03/22 03:29 A&P Assessment and plan (1) Hypoxia: Required transiently 3 L supplemental oxygen-possibly secondary to fluid overload due to A-fib RVR episode She was able to come off oxygen in few hours ABG showed PF ratio greater than [address] chest increased perihilar groundglass opacities-suggestive of pulmonary edema more likely than infection-recently she finished a 7-day course of levofloxacin given by PCP and her procalcitonin is low-I have less suspicion for infection Her BNP is elevated Recommended Lasix 20 Mg daily for couple of days Currently on Cardizem drip and for better rate control; metoprolol 50 Mg p.o. twice daily, she is on Eliquis as well. (2) Atrial fibrillation with rapid ventricular response: Currently on Cardizem drip and for better rate control; metoprolol 50 Mg p.o. twice daily, she is on Eliquis as well. Monitor heart rate Monitor electrolytes and supplement to keep potassium greater than 4 and magnesium greater than 2 (3) Hypersensitivity pneumonitis: Patient imaging was consistent with chronic fibrosing hypersensitivity pneumonitis However this was not confirmed by open lung biopsy as she refused to pursue for lung biopsies given her age The diagnosis of hypersensitivity pneumonitis is supported by bilateral upper lobe predominant mosaicism, reticulation and mild degree of honeycombing with traction bronchiectasis. This was seen earliest about 5 [address] scan that has progressed over the last 5 years.? The patient had also given history of moving into a new house around the same time.? Repeat CT chest 10/07/2022?showed moderate pulmonary fibrosis, similar to the prior study of 07/20/2020 without obvious change or progression. However her CTA today morning showed new bilateral groundglass airspace infiltrates more prominent in perihilar regions suggesting mostly pulmonary edema. There is small and trace left pleural effusion. No focal consolidation. Marked cardiomegaly. Prominent peribronchial lymph nodes slightly progressed likely reactive. Her BNP is elevated. Given her increased airspace opacities centrally-suspect fluid overload secondary to triggered event of A-fib RVR I recommended to optimize her A-fib RVR treatment to to achieve better heart rate and Lasix 20 Mg daily for now to avoid fluid overload She recently completed her antibiotics and it may not help given her low procalcitonin and no definite consolidation. We will also taper down her steroids as she does not have any significant wheeze and current exacerbation secondary to fluid overload rather than underlying interstitial lung disease exacerbation Consult Attestations Medical Necessity Statement: She may stay in the hospital 24 to 48 hours until her heart rate is better controlled Time Spent in Patient Care: Greater than 35 minutes (>than 50% of time spent in counselling and/or direct pt care on unit). Critical Care Time: The high probability of a clinically significant, sudden or life threatening deterioration of the patient's [pulmonary cardiac] system(s) required my full and direct attention, intervention and personal management. The critical care time is as shown. This time is in addition to time spent performing any reported procedures but includes the following: [x] Data and vital sign review and interpretation [x] Patient assessment, examination and intervention [x] Documentation [x] Medication orders and management Coding Level of Care Code 66054 Diagnoses Hypoxia R09.02 Atrial fibrillation with rapid ventricular response I48.91 Hypersensitivity pneumonitis J67.9 Time Spent (min) 78
--- NOTE | 2022-12-03 18:53 | PC.NURSE ---
Patients heart rate was up into the 120-130's at times during the day shift. Dr. Granado was notified and he said that he was aware of this and felt that it was okay if she is not having any other symptoms.
[2022-12-03] MEDS: acetaminophen 325 mg Tablet 650 MG PO (20:21)
[2022-12-03] MEDS: insulin glargine 100 units/1 mL 62 UNIT SUBCUT (21:27)
[2022-12-03] MEDS: metoprolol tartrate 1 mg/1 mL SDV 5 mL 5 MG IVP (21:27)
--- NOTE | 2022-12-03 22:07 | PC.NURSE ---
12/03/22 2030 - Contacted MD Casey on pt elevated hr with other vss. Also mentioned bs and that home lantus had not be resumed. New orders noted.
[2022-12-04] VITALS (11 sets, daily range): BP systolic 106–153; BP diastolic 78–99; PULSE 109–130; RESP 16–28; TEMP 36.6–36.7; O2SAT 89–96
[2022-12-04 03:29] LABS: Glucose Point of Care 259 mg/dL (70-110)
[2022-12-04 05:02] LABS: Basophils % 0.2 %; Hemoglobin 12.8 g/dL (11.5-15.3); Lymphocytes # 1.1 10^3/uL (0.8-4.8); Lymphocytes % 8.5 %; Mean Corpuscular Hemoglobin 29.6 pg (28.0-34.0); Mean Corpuscular Volume 92.4 fl (81-99); Mean Platelet Volume 10.3 fL (7.4-10.4); Monocytes # 0.5 10^3/uL (0.2-0.9); Monocytes % 3.5 %; Neutrophils # 11.53 10^3/uL (1.8-7.7); Nucleated Red Blood Cells % 0 %; Platelet Count 242 10^3/cmm (130-400); Red Blood Count 4.33 10^6/uL (4.1-5.3); Red Cell Distribution Width 13.4 % (12.1-15.1); White Blood Count 13.2 10^3/uL (4.0-10.0)
[2022-12-04 05:24] LABS: Anion Gap 17.2 (5-19); Blood Urea Nitrogen 27 mg/dL (8-23); Carbon Dioxide 25 mmol/L (22-29); Chloride 103 mmol/L (98-107); Glucose 221 mg/dL (65-115); Magnesium 1.9 mg/dL (1.7-2.3); Osmolality Calculated 304 mOsm/kg (285-295); Potassium 4.2 mmol/L (3.5-5.1); Sodium 141 mmol/L (136-145)
[2022-12-04] MEDS: acetaminophen 325 mg Tablet 650 MG PO (05:40)
[2022-12-04] MEDS: FUROsemide 10 mg/mL SDV 2mL 20 MG IVP (05:40)
[2022-12-04 06:26] LABS: Glucose Point of Care 201 mg/dL (70-110)
[2022-12-04] MEDS: losartan 50 mg Tablet 75 MG PO (07:37)
[2022-12-04] MEDS: apixaban 5 mg Tablet PO ×2 (07:38→20:20)
[2022-12-04] MEDS: metoprolol tartrate 50 mg Tablet PO ×2 (07:38→20:19)
[2022-12-04] MEDS: ascorbic acid 500 mg Tablet 1000 MG PO (07:38)
[2022-12-04] MEDS: clopidogrel 75 mg Tablet PO (07:38)
[2022-12-04] MEDS: insulin lispro 100 unit/1 mL SUBCUT ×3 (07:44→20:27)
[2022-12-04] MEDS: ipratropium-albuterol 3 mL Neb INHALATION (11:29)
[2022-12-04 11:55] LABS: Glucose Point of Care 141 mg/dL (70-110)
--- NOTE | 2022-12-04 13:19 | PM.PN ---
Subjective Subjective: Heart rate was very poorly controlled overnight. She is more short of breath this morning. She is back on oxygen which concerns her. Family is bedside and supportive in her care. Patient denies any chest pain, nausea or emesis. She has a strong desire to be discharged but is agreeable to staying if she is not medically ready. Medications: Reviewed: Yes Vitals/I&O/Wt Last Vital Signs Temp 97.8 F 12/04/22 07:08 Pulse 121 H 12/04/22 12:19 Resp 16 12/04/22 12:19 BP 153/82 12/04/22 12:19 Pulse Ox 89 L 12/04/22 12:19 O2 Del Method Room Air 12/04/22 11:31 O2 Flow Rate 2 12/04/22 08:00 12/03/22 12/04/22 12/04/22 22:59 06:59 14:59 Intake Total 440 / 2002.625 150 / 2152.625 120 / 120 Output Total 150 / 475 550 / 1025 350 / 350 Balance 290 / 1527.625 -400 / 1127.625 -230 / -230 Weight last 48 hrs Weight 82.236 kg Weight 79.379 kg Physical Exam Narrative: General: Patient is awake. Appears stated age. Very pleasant. Head: Normocephalic. Atraumatic. EOM intact. Neck: No JVD. Cardiovascular: Tachycardic. No gallops. No murmurs. Lungs: Faint crackles are present. No wheezing. No rales. No rhonchi. On nasal cannula support. Skin: No jaundice. No rashes. Abdomen: Normal bowel sounds, abdomen soft and nontender. Genito Urinary: Genital exam not performed since complaints not related. Rectal: Rectal exam not performed since no symptoms indicated blood loss. Extremities: No cyanosis or clubbing. Musculoskeletal: No swollen or erythematous joints. Neurological: Moves all 4 extremities. No myoclonus. Data 12/04/22 04:37 12/04/22 04:37 A&P Assessment and plan (1) Atrial fibrillation with rapid ventricular response: Heart rate remains uncontrolled Telemetry monitoring Echo with normal LVEF of 55%, indeterminate diastolic dysfunction due to the rhythm, elevated RVSP to 46 mmHg, and worsening mitral regurgitation Continue anticoagulation with apixaban Continue diltiazem drip Continue metoprolol tartrate Continue Lasix Cardiology consult (2) Hypersensitivity pneumonitis: Associated with pulmonary pulmonary medicine consulted, appreciate recommendations Continue steroids Xopenex as needed (3) Hyperlipidemia: Qualifiers: Hyperlipidemia type: mixed hyperlipidemia Qualified Code(s): E78.2 - Mixed hyperlipidemia (4) Hypertension: Continue metoprolol Continue Lasix Continue losartan Qualifiers: Hypertension type: secondary to endocrine disorders Qualified Code(s): I15.2 - Hypertension secondary to endocrine disorders (5) Type 2 diabetes mellitus: Continue Lantus Sliding scale insulin correction Avoid hypoglycemia Qualifiers: Diabetes mellitus roasterman insulin use: with fdc use Diabetes mellitus complication status: without complication Qualified Code(s): E11.9 - Type 2 diabetes mellitus without complications; Z79.4 - intermodal 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 She requires ongoing hospitalization for IV Cardizem drip, titration of cardiac medications, telemetry, and cardiology evaluation. Coding Level of Care Code Acute Code for [facility] Fwd Diagnoses Atrial fibrillation with rapid ventricular response I48.91 Hypersensitivity pneumonitis J67.9 Hyperlipidemia E78.2 Hyperlipidemia type: mixed hyperlipidemia Hypertension I15.2 Hypertension type: secondary to endocrine disorders Type 2 diabetes mellitus E11.9; Z79.4 Diabetes mellitus roasterman insulin use: with fdc use Diabetes mellitus complication status: without complication
[2022-12-04 16:48] LABS: Glucose Point of Care 224 mg/dL (70-110)
--- NOTE | 2022-12-04 17:03 | PM.CONSULT ---
Providers/Reason For Consult Consulting Physician/Specialty*: BA Wong MD/cardiology Reason for Consult*: Patient is atrial fibrillation rapid ventricular rate. Not responding to the current medications.. Requesting Physician: Dr. Michel Attending Physician: Anand Granado MD Primary Care Provider: Saleem Rosado History of Present Illness History of Present Illness Eloisa Campbell is a 87 year old female with a history of atherosclerotic heart diseas, high blood pressure, type 2 diabetes, recurrent CVA, chronic atrial fibrillation and COPD, presenting with increasing shortness of breath/weakness. She was found to be in atrial fibrillation rapid ventricular rate. She also had features of congestive heart failure. Cardiology consult is requested for further cardiac evaluation recommendations. Patient still remains in atrial fibrillation with rapid ventricular rate. The dose of the metoprolol is being titrated up. She denies any chest pain or chest tightness. At the time of the admission, she was complaining of chest tightness with shortness of breath and palpitations. Her symptoms are significantly improved since then. Currently her shortness of breath is mostly exertional. She also has some pounding/palpitations in the chest.. This patient was treated for a possible upper respiratory infection/bronchitis for a week prior to the hospital admission. Since there was no relief of symptoms, she went back to the primary care provider's office. This time she had a chest x-ray which revealed possible pneumonia. She was given some new antibiotics. The patient waited for a day. Her symptoms started getting worse. For this reason, she was brought to the emergency room. She is currently being treated with antibiotics,steroids bronchodilators and other symptomatic measures., Telemetry shows atrial fibrillation rapid ventricular rate in the 120s and 130s. She has no fever or chills. No significant cough . No hematemesis. No abdominal pain or dysuria. No other specific complaints. ?She had a most recent coronary angiogram in April 2018.? At that time, she was found to have a jailed diagonal ostial lesion.? This was left alone.? In October 2016, she had a high-grade lesion of the proximal LAD for which she underwent PCI.? At that time, she had a plain old balloon angioplasty of the jailed lesion of the diagonal artery. Medications/Allergies Home Medications Medication Instructions Recorded Confirmed Last Taken Type cholecalciferol (vitamin D3) 25 1,000 unit PO BID 08/29/19 12/03/22 06/25/20 History mcg (1,000 unit) capsule clopidogrel 75 mg tablet 75 mg PO DAILY #90 tabs 12/31/21 12/03/22 Unknown Rx apixaban 5 mg tablet (Eliquis) 5 mg PO BID #30 tabs 03/04/22 12/03/22 Unknown Rx methenamine hippurate 1 gram tablet 1 g PO DAILY #30 tabs 03/11/22 12/03/22 Unknown Rx ascorbic acid (vitamin C) 1,000 mg 1 g PO DAILY 07/17/22 12/03/22 Unknown History tablet metoprolol tartrate 50 mg tablet 25 mg PO BID #30 tabs 07/17/22 12/03/22 Unknown Rx pioglitazone 15 mg tablet 15 mg PO DAILY #30 tabs 07/17/22 12/03/22 Unknown Rx valsartan 160 mg tablet 160 mg PO .1 1/2 daily 30 days #90 07/17/22 12/03/22 Unknown Rx tabs insulin glargine 100 unit/mL (3 62 unit (0.62 mL) SUBCUT .Qpm #15 11/18/22 12/03/22 Unknown Rx mL) subcutaneous pen (Lantus mL Solostar U-100 Insulin) prednisone 20 mg tablet See Rx Instructions .Route 11/27/22 12/03/22 Unknown Rx .COMPLEX #14 tabs cefdinir 300 mg capsule 300 mg PO Q12H #14 caps 12/02/22 12/03/22 Unknown Rx doxycycline monohydrate 100 mg 100 mg PO BID #14 caps 12/02/22 12/03/22 Unknown Rx capsule esomeprazole magnesium 20 mg 20 mg PO DAILY 12/03/22 12/03/22 Unknown History capsule,delayed release (Nexium) levofloxacin 500 mg tablet 500 mg PO DAILY 12/03/22 12/03/22 Unknown History Allergies Allergy/AdvReac Type Severity Reaction Status Date / Time albuterol [From ProAir HFA] Allergy ALGY-Rash Verified 12/03/22 08:36 isosorbide Allergy HEADACHE Verified 12/03/22 08:36 lisinopril Allergy COUGH Verified 12/03/22 08:36 Current Medications Generic Name Dose Route Start Last Admin Trade Name Freq PRN Reason Stop Dose Admin Acetaminophen 650 mg 12/03/22 06:13 12/04/22 05:40 Acetaminophen 325 Mg Tablet PO 650 mg Q6H PRN Administration Mild/Mod Pain Or Temp >/= 101 Apixaban 5 mg 12/03/22 09:00 12/04/22 07:38 Apixaban 5 Mg Tablet PO 5 mg BID@0900,2100 KODY Administration Ascorbic Acid 1,000 mg 12/03/22 09:00 12/04/22 07:38 Ascorbic Acid 500 Mg Tablet PO 1,000 mg DAILY KODY Administration Clopidogrel Bisulfate 75 mg 12/03/22 09:00 12/04/22 07:38 Clopidogrel 75 Mg Tablet PO 75 mg DAILY KODY Administration Furosemide 20 mg 12/04/22 06:00 12/04/22 05:40 Furosemide 10 Mg/Ml Sdv 2ml IVP 20 mg Q24H KODY Administration Diltiazem HCl 100 mg/ Sodium 100 mls @ 0 mls/hr 12/03/22 04:00 12/03/22 14:21 Chloride IV Infused .Q0M KODY Titration Protocol Per Protocol Insulin Glargine 62 unit 12/03/22 21:15 12/03/22 21:27 Insulin Glargine 100 Units/1 Ml SUBCUT 62 unit BEDTIME KODY Administration Insulin Human Lispro 0 unit 12/03/22 08:00 12/04/22 16:59 Insulin Lispro 100 Unit/1 Ml SUBCUT 8 unit WM&BEDTIME KODY Administration Protocol Losartan Potassium 75 mg 12/03/22 09:00 12/04/22 07:37 Losartan 50 Mg Tablet PO 75 mg DAILY KODY Administration Methylprednisolone Sodium Succinate 40 mg 12/04/22 09:00 12/04/22 07:39 Methylprednisolone Sod Succ 40 Mg/Ml Inj IVP 40 mg Q12H KODY Administration Metoprolol Tartrate 50 mg 12/03/22 09:00 12/04/22 07:38 Metoprolol Tartrate 50 Mg Tablet PO 50 mg BID@0900,2100 KODY Administration Additional Medication Information 05/24/20 Echo Normal left ventricular size and systolic function, EF 60%.? No ?gross wall motion of normalities.? Segmental wall motion ?analysis difficult because of the poor ultrasonic window . ?Type I diastolic dysfunction. ?Thickened aortic and mitral valves. ?Mild mitral annular calcification. ?Trace mitral valve regurgitation. ?Trace tricuspid valve regurgitation. ?Estimated pulmonary artery peak systolic pressure was 26 mmHg ?There is no pericardial effusion. ?There are no intracardiac masses. ?Compared to the study from 09/17/2016,? there may not be a ?significant change 09/2018 ? CARDIAC EVENT MONITOR? 1. The baseline rhythm was found to be normal sinus with a heart rate of 72 beats per minute 2. Rare PACs and one short run of nonsustained ventricular tachycardia of 6 beats, at a rate of 133 beats per minute were noted. No symptoms are mentioned with any of the recordings. 3. No previous similar studies, available for comparison 07/05/2018? ? ARTERIAL DUPLEX LE, Bilateral #1 abnormal elevated Doppler flow velocities, suggestive of less than 50% stenosis in the right iliac system #2. Normal resting ABIs bilaterally, suggesting no hemodynamically significant arterial obstruction 05/30/2018 ? BASELINE PULMONARY FUNCTION TEST (PFT)?? Spirometry is without obstruction. There is no significant bronchodilator response. Lung volumes indicate a mild restrictive defect. The diffusing capacity is moderately reduced. Clinical correlation is recommended. 05/04/18 [facility] [place] This is an 83-year-old white female with history of hypertension, diabetes, dyslipidemia, previous coronary disease, presented with the chest tightness, fatigue, shortness of breath and an abnormal myocardial perfusion imaging.She underwent left heart catheterization with left and right coronary angiogram today.? The coronary angiogram essentially revealed the following-No significant disease noted in the Left Main, LAD, Circumflex, or RCA coronary arteries. ? The stented segment of the LAD was found to be patent.? There was moderate ostial narrowing in the first diagonal branch of the left anterior descending artery, appears to be jailed lesion. PFSH Acute PFSH: Medical History Atherosclerotic heart disease of [place] coronary artery without angina pectoris Atrial fibrillation Cystitis cystica Fatigue GERD (gastroesophageal reflux disease) Gross hematuria Hyperlipidemia Hypertension Obstructive sleep apnea Pt did not like CPAP Syncope Type 2 diabetes mellitus Surgical History History of repair of hiatal hernia Hx of breast biopsy Hx of cholecystectomy Hx of hysterectomy Hx of laminectomy Hx of rotator cuff surgery Family History Father Diabetes Hypertension CAD (coronary artery disease) Mother Hypertension CAD (coronary artery disease) Sister Cancer Grandmother Cancer Other Bleeding disorder Social History Smoking and tobacco status: never smoked Second hand smoke exposure: No Alcohol intake: never Substance/Drug Use: never Lives independently: Yes Household members: none Marital status: / Current occupational status: retired Do you think of yourself as: Straight/Heterosexual Vitals/I&O/Wt Last Vital Signs Temp 97.8 F 12/04/22 07:08 Pulse 130 H 12/04/22 16:58 Resp 28 H 12/04/22 16:58 BP 133/84 12/04/22 16:58 Pulse Ox 94 12/04/22 16:58 O2 Del Method Nasal Cannula 12/04/22 16:58 O2 Flow Rate 1 12/04/22 16:58 12/04/22 12/04/22 12/04/22 06:59 14:59 22:59 Intake Total 150 / 2152.625 600 / 600 Output Total 550 / 1025 650 / 650 Balance -400 / 1127.625 -50 / -50 Weight last 48 hrs Weight 181 lb 4.8 oz Weight 175 lb Physical Exam Narrative: GENERAL: The patient is alert and oriented times three. Not in any acute distress. HEENT: No significant pallor, icterus or lymphadenopathy.Oral cavity: There are no mucous membrane lesions. NECK: Trachea appears to be central. No masses noted. No JVD or thyromegaly appreciated. RESPIRATORY: Chest is symmetrical. No intercostals muscle retraction or any accessory muscle activation. There is no chest wall tenderness. Breath sounds are heard bilaterally. No rales or rhonchi heard. No evidence of any consolidation. BREASTS: Deferred. HEART: The first heart sound is variable. Second heart tone is normal. No S3 or S4. Short systolic murmur in the left sternal border. No pericardial rub ABDOMEN: No vessel pulsations or distention. No tenderness. No organomegaly appreciated. Bowel sounds are normally heard. : Deferred. RECTAL: Deferred. LYMPHATIC: No lymphadenopathy noted in the neck. EXTREMITIES: No edema or cyanosis. No clubbing. MUSCULOSKELETAL: No acute joint deformities or swelling SKIN: There are no significant rashes or ecchymosis NEUROPSYCHIATRIC: The patient is alert and oriented x3. Appears to be in a good mood. No tremors or rigidity noted. Data 12/04/22 04:37 12/04/22 04:37 Micro: Laboratory Last Values WBC 13.2 10^3/uL (4.0-10.0) H 12/04/22 04:37 RBC 4.33 10^6/uL (4.1-5.3) 12/04/22 04:37 Hgb 12.8 g/dL (11.5-15.3) 12/04/22 04:37 Hct 40.0 % (37.0-47.0) 12/04/22 04:37 MCV 92.4 fl (81-99) 12/04/22 04:37 MCH 29.6 pg (28.0-34.0) 12/04/22 04:37 MCHC 32.0 g/dL (30.0-36.0) 12/04/22 04:37 RDW 13.4 % (12.1-15.1) 12/04/22 04:37 Plt Count 242 10^3/cmm (130-400) 12/04/22 04:37 MPV 10.3 fL (7.4-10.4) 12/04/22 04:37 Neut % (Auto) 87.0 % 12/04/22 04:37 Lymph % (Auto) 8.5 % 12/04/22 04:37 Lake % (Auto) 3.5 % 12/04/22 04:37 Eos % (Auto) 0.0 % 12/04/22 04:37 Baso % (Auto) 0.2 % 12/04/22 04:37 Neut # (Auto) 11.53 10^3/uL (1.8-7.7) H 12/04/22 04:37 Lymph # (Auto) 1.1 10^3/uL (0.8-4.8) 12/04/22 04:37 Lake # (Auto) 0.5 10^3/uL (0.2-0.9) 12/04/22 04:37 Eos # (Auto) 0.0 10^3/uL (0.0-0.8) 12/04/22 04:37 Baso # (Auto) 0.0 10^3/uL (0.0-0.1) 12/04/22 04:37 Nucleated RBC % (auto) 0 % 12/04/22 04:37 Nucleated RBCs # 0.0 /100WBC 12/04/22 04:37 PT 20.90 SECONDS (12.1-14.9) H 12/03/22 03:29 INR 1.73 (0.8-1.2) H 12/03/22 03:29 D-Dimer 0.42 ug/mIFEU (0-0.59) 12/03/22 03:29 Specimen Type Arterial 12/03/22 07:37 Sample Site Radial, left 12/03/22 07:37 ABG pH 7.45 (7.35-7.45) 12/03/22 07:37 ABG pCO2 40.6 mmHg (35-45) 12/03/22 07:37 ABG pO2 80.9 mmHg (80.0-100.0) 12/03/22 07:37 ABG HCO3 28.4 mmol/L (22-26) H 12/03/22 07:37 ABG O2 Saturation 97.3 12/03/22 07:37 ABG Base Excess 4.1 mmol/L (-2.0-2.0) H 12/03/22 07:37 [place] Test Pos 12/03/22 07:37 A-a O2 Gradient 8.9 mmHg (5-10) 12/03/22 07:37 Hematocrit 43.9 % (37-47) 12/03/22 07:37 Hgb O2 Saturation 95.2 % (95-100) 12/03/22 07:37 Carboxyhemoglobin 1.6 %THgb (0.4-20.1) 12/03/22 07:37 Methemoglobin 0.6 % (0.4-1.5) 12/03/22 07:37 Total Hemoglobin 14.3 g/dL (12-16) 12/03/22 07:37 Sodium 141.0 mmol/L (131-143) 12/03/22 07:37 Potassium 4.1 mmol/L (3.5-5.0) 12/03/22 07:37 Glucose 218.0 mg/dL (70-115) H 12/03/22 07:37 Ionized Calcium 1.2 mmol/L (1.1-1.4) 12/03/22 07:37 O2 Delivery Device Nc 04/26/23 07:37 O2 Liters/Min 2.0 % 12/03/22 07:37 FiO2 28.0 % 12/03/22 07:37 Laboratory Chemist ID [email or web address] 12/03/22 07:37 Sodium 141 mmol/L (136-145) 12/04/22 04:37 Potassium 4.2 mmol/L (3.5-5.1) 12/04/22 04:37 Chloride 103 mmol/L (98-107) 12/04/22 04:37 Carbon Dioxide 25 mmol/L (22-29) 12/04/22 04:37 Anion Gap 17.2 (5-19) 12/04/22 04:37 BUN 27 mg/dL (8-23) H 12/04/22 04:37 Creatinine 0.7 mg/dL (0.5-0.9) 12/04/22 04:37 GFR Calculation Not Reportable 12/04/22 04:37 Glucose 221 mg/dL (65-115) H 12/04/22 04:37 POC Glucose 224 mg/dL (70-110) H 12/04/22 16:25 Estimat Average Glucose 126 12/03/22 03:29 Hemoglobin A1c 6.0 % (4.0-6.0) 12/03/22 03:29 Calculated Osmolality 304 mOsm/kg (285-295) H 12/04/22 04:37 Calcium 9.0 mg/dL (8.5-10.5) 12/04/22 04:37 Magnesium 1.9 mg/dL (1.7-2.3) 12/04/22 04:37 Total Bilirubin 0.8 mg/dL (0.15-1.2) 12/03/22 03:29 AST 20 U/L (0-32) 12/03/22 03:29 ALT 24 U/L (0-33) 12/03/22 03:29 Alkaline Phosphatase 74 U/L (35-105) 12/03/22 03:29 Troponin T Baseline 12 ng/L (0-10) H 12/03/22 03:29 Troponin T 120 Minute 9.76 ng/L (0-10) 12/03/22 05:03 Delta Troponin T -2.24 ABS# (0-10) L 12/03/22 05:03 Troponin T Hi Sens 6Hr 9.04 ng/L (0-10) 12/03/22 09:20 Troponin T Hi Sens 6Hr Delta -2.96 ng/L (0-12) L 12/03/22 09:20 NT-Pro-B Natriuret Pep 954 pg/mL (0-450) H 12/03/22 03:29 Total Protein 6.5 g/dL (6.6-8.7) L 12/03/22 03:29 Albumin 3.9 g/dL (3.5-5.2) 12/03/22 03:29 Globulin 2.6 g/dL (1.3-4.6) 12/03/22 03:29 Procalcitonin 0.04 ng/mL (0-0.5) 12/03/22 03:29 TSH 2.09 uIU/mL (0.27-4.20) 12/03/22 03:29 CT Chest: Radiologist's impression: 1.? New bilateral groundglass airspace infiltrates more prominent in the perihilar regions. Recommend correlation for pneumonia versus pulmonary edema. Small RIGHT and trace LEFT pleural fluid. 2.? No focal consolidation. 3.? Marked cardiomegaly. 4.? Prominent peribronchial lymph nodes slightly progressed compared to previous likely reactive. 5.? Cholecystectomy clips. 6.? Small moderate esophageal hiatal hernia. CXR: Radiologist's impression: 1. ? Heart is enlarged but stable when compared to the prior exam. 2. ? Interval worsening of bilateral pleuroparenchymal disease. ? EKG 1: My Interpretation: EKG showed atrial fibrillation with a ventricular rate of [address]-T changes. A&P Assessment and plan (1) Atrial fibrillation with rapid ventricular response: Most likely the respiratory infection/COPD exacerbation might be causing the atrial fibrillation with rapid ventricular rate. May continue on the treatment of the infection as well as the COPD exacerbation. To better control the heart rate, I may also try digoxin. The dose of the metoprolol also may be gradually increased. (2) Upper respiratory infection: Antibiotic treatment as per the primary. (3) Acute diastolic heart failure: I reviewed the dose of the IV Lasix to 40 mg every 8 hours x3 along with potassium 20 mg p.o. 3 times daily x3. Her intake output will be closely monitored. Vital signs also need to be closely monitored. (4) Hypertension: Blood sugar seems to be fairly under control. May continue on the current antihypertensive medications. Qualifiers: Hypertension type: secondary to endocrine disorders Qualified Code(s): I15.2 - Hypertension secondary to endocrine disorders (5) Hyperlipidemia: May continue on the current medications. Qualifiers: Hyperlipidemia type: mixed hyperlipidemia Qualified Code(s): E78.2 - Mixed hyperlipidemia (6) Obstructive sleep apnea: Patient refused the CPAP. (7) Atherosclerotic heart disease of bois forte coronary artery without angina pectoris: I may consider doing a Myocardial perfusion imaging, to evaluate for any underlying coronary ischemia. Based on the results, further recommendations will be made. Qualifiers: [place] vs. transplanted heart: bois forte heart Qualified Code(s): I25.10 - Atherosclerotic heart disease of bois forte coronary artery without angina pectoris Plan Based on the results of the above tests and the patient's clinical progress, further recommendations will be made. Thank you for the opportunity to evaluate this patient and make these recommendations Consult Attestations Medical Necessity Statement: Patient requires continued hospital stay for close monitoring and further management Coding Level of Care Code 67363 Diagnoses Atrial fibrillation with rapid ventricular response I48.91 Upper respiratory infection J06.9 Acute diastolic heart failure I50.31 Hypertension I15.2 Hypertension type: secondary to endocrine disorders Hyperlipidemia E78.2 Hyperlipidemia type: mixed hyperlipidemia Obstructive sleep apnea G47.33 Atherosclerotic heart disease of bois forte coronary artery without angina pectoris I25.10 [place] vs. transplanted heart: bois forte heart
[2022-12-04] MEDS: FUROsemide 10 mg/mL SDV 4mL 40 MG IVP (18:15)
[2022-12-04] MEDS: potassium chloride ER 20 mEq Tablet PO (18:18)
[2022-12-04] MEDS: digoxin 250 mcg/ml INJ 2 mL IVP (18:19)
[2022-12-04] MEDS: insulin glargine 100 units/1 mL 62 UNIT SUBCUT (20:27)
[2022-12-05] VITALS (11 sets, daily range): BP systolic 122–166; BP diastolic 73–94; PULSE 95–128; RESP 19–24; TEMP 36.6–37.2; O2SAT 86–95
[2022-12-05] MEDS: FUROsemide 10 mg/mL SDV 4mL 40 MG IVP ×2 (02:24→09:42)
[2022-12-05] MEDS: potassium chloride ER 20 mEq Tablet PO ×2 (02:25→09:42)
[2022-12-05 03:56] LABS: Blood Urea Nitrogen 33 mg/dL (8-23); Calcium 9.4 mg/dL (8.5-10.5); Carbon Dioxide 29 mmol/L (22-29); Chloride 99 mmol/L (98-107); Glucose 136 mg/dL (65-115); Osmolality Calculated 301 mOsm/kg (285-295); Sodium 141 mmol/L (136-145)
[2022-12-05 04:01] LABS: Anion Gap 17.2 (5-19); Potassium 4.2 mmol/L (3.5-5.1)
[2022-12-05 06:02] LABS: Glucose Point of Care 197 mg/dL (70-110)
[2022-12-05 06:23] LABS: Glucose Point of Care 123 mg/dL (70-110)
[2022-12-05] MEDS: losartan 50 mg Tablet 75 MG PO (08:19)
[2022-12-05] MEDS: ascorbic acid 500 mg Tablet 1000 MG PO (08:19)
[2022-12-05] MEDS: apixaban 5 mg Tablet PO ×2 (08:20→21:35)
[2022-12-05] MEDS: clopidogrel 75 mg Tablet PO (08:21)
[2022-12-05] MEDS: metoprolol tartrate 50 mg Tablet PO (08:21)
[2022-12-05] MEDS: pantoprazole DR 40 mg Tablet PO (09:42)
[2022-12-05 11:25] LABS: Glucose Point of Care 198 mg/dL (70-110)
--- NOTE | 2022-12-05 11:58 | PC.NURSE ---
report given to VIJAYA Campos at [phone]
[2022-12-05] MEDS: insulin lispro 100 unit/1 mL SUBCUT ×2 (12:29→22:16)
--- NOTE | 2022-12-05 13:27 | PM.PN ---
Subjective Subjective: Patient reports she did not sleep well overnight. Endorses generalized malaise, fatigue, and shortness of breath. Telemetry review shows heart rate still uncontrolled often in the 140s while in bed overnight. Patient denies fevers, chills, nausea, or chest pains. Family is bedside and supportive. Medications: Reviewed: Yes Medication Review Details: 05/24/20 Echo Normal left ventricular size and systolic function, EF 60%.? No ?gross wall motion of normalities.? Segmental wall motion ?analysis difficult because of the poor ultrasonic window . ?Type I diastolic dysfunction. ?Thickened aortic and mitral valves. ?Mild mitral annular calcification. ?Trace mitral valve regurgitation. ?Trace tricuspid valve regurgitation. ?Estimated pulmonary artery peak systolic pressure was 26 mmHg ?There is no pericardial effusion. ?There are no intracardiac masses. ?Compared to the study from 09/17/2016,? there may not be a ?significant change 09/2018 ? CARDIAC EVENT MONITOR? 1. The baseline rhythm was found to be normal sinus with a heart rate of 72 beats per minute 2. Rare PACs and one short run of nonsustained ventricular tachycardia of 6 beats, at a rate of 133 beats per minute were noted. No symptoms are mentioned with any of the recordings. 3. No previous similar studies, available for comparison 07/05/2018? ? ARTERIAL DUPLEX LE, Bilateral #1 abnormal elevated Doppler flow velocities, suggestive of less than 50% stenosis in the right iliac system #2. Normal resting ABIs bilaterally, suggesting no hemodynamically significant arterial obstruction 05/30/2018 ? BASELINE PULMONARY FUNCTION TEST (PFT)?? Spirometry is without obstruction. There is no significant bronchodilator response. Lung volumes indicate a mild restrictive defect. The diffusing capacity is moderately reduced. Clinical correlation is recommended. 05/04/18 [facility] This is an 83-year-old white female with history of hypertension, diabetes, dyslipidemia, previous coronary disease, presented with the chest tightness, fatigue, shortness of breath and an abnormal myocardial perfusion imaging.She underwent left heart catheterization with left and right coronary angiogram today.? The coronary angiogram essentially revealed the following-No significant disease noted in the Left Main, LAD, Circumflex, or RCA coronary arteries. ? The stented segment of the LAD was found to be patent.? There was moderate ostial narrowing in the first diagonal branch of the left anterior descending artery, appears to be jailed lesion. Vitals/I&O/Wt Last Vital Signs Temp 97.8 F 12/05/22 12:56 Pulse 102 H 12/05/22 12:56 Resp 20 H 12/05/22 12:56 BP 136/73 12/05/22 12:56 Pulse Ox 93 12/05/22 12:56 O2 Del Method Room Air 12/05/22 08:21 O2 Flow Rate 1 12/05/22 00:00 12/04/22 12/05/22 12/05/22 22:59 06:59 14:59 Intake Total 240 / 840 590 / 1430 118 / 118 Output Total 1875 / 2525 1380 / 3905 Balance -1635 / -1685 -790 / -2475 118 / 118 Weight last 48 hrs Weight 79.288 kg Physical Exam Narrative: General: Patient is awake. Appears fatigued. Head: Normocephalic. Atraumatic. EOM intact. Neck: No JVD. Cardiovascular: Tachycardic. No gallops. No murmurs. Lungs: Faint crackles are present. No wheezing. No rales. No rhonchi. Skin: No jaundice. No rashes. Abdomen: Normal bowel sounds, abdomen soft and nontender. Genito Urinary: Genital exam not performed since complaints not related. Rectal: Rectal exam not performed since no symptoms indicated blood loss. Extremities: No cyanosis or clubbing. Musculoskeletal: No swollen or erythematous joints. Neurological: Moves all 4 extremities. No myoclonus. Data 12/04/22 04:37 12/05/22 02:24 A&P Assessment and plan (1) Atrial fibrillation with rapid ventricular response: Heart rate still remains uncontrolled Telemetry monitoring Echo with normal LVEF of 55%, indeterminate diastolic dysfunction due to the rhythm, elevated RVSP to 46 mmHg, and worsening mitral regurgitation Continue anticoagulation with apixaban Increase metoprolol tartrate Status post Lasix Cardiology following, d/w Dr. 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 - Hypertension secondary to endocrine disorders (5) Type 2 diabetes mellitus: Continue Lantus Sliding scale insulin correction Avoid hypoglycemia Qualifiers: Diabetes mellitus assisted insulin use: with assisted use Diabetes mellitus complication status: without complication Qualified Code(s): E11.9 - Type 2 diabetes mellitus without complications; 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 Coding Level of Care Code Acute Code for [employer] Fwd Diagnoses Atrial fibrillation with rapid ventricular response I48.91 Hypersensitivity pneumonitis J67.9 Hyperlipidemia E78.2 Hyperlipidemia type: mixed hyperlipidemia Hypertension I15.2 Hypertension type: secondary to endocrine disorders Type 2 diabetes mellitus E11.9; Z79.4 Diabetes mellitus joint terminal attack controller insulin use: with joint terminal attack controller use Diabetes mellitus complication status: without complication Weakness R53.1
[2022-12-05] MEDS: digoxin 250 mcg/ml INJ 2 mL IVP ×2 (13:58→19:15)
--- NOTE | 2022-12-05 15:26 | P.PN_ITS ---
Subjective Subjective: Patient is still having some amount of shortness of breath and palpitation, especially with exertion. No fever or chills. The telemetry still shows atrial fibrillation with rapid ventricular rate. Medications: Medication Review Details: Current Medications Acetaminophen (Acetaminophen 325 Mg Tablet) 650 mg PO Q6H PRN PRN Reason: Mild/Mod Pain Or Temp >/= 101 Last Admin: 12/04/22 05:40 Dose: 650 mg Apixaban (Apixaban 5 Mg Tablet) 5 mg PO BID@0900,2100 [facility] Last Admin: 12/05/22 08:20 Dose: 5 mg Ascorbic Acid (Ascorbic Acid 500 Mg Tablet) 1,000 mg PO DAILY [facility] Last Admin: 12/05/22 08:19 Dose: 1,000 mg Clopidogrel Bisulfate (Clopidogrel 75 Mg Tablet) 75 mg PO DAILY [facility] Last Admin: 12/05/22 08:21 Dose: 75 mg Dextrose (Dextrose 50% Syringe 50 Ml) 50 ml IVP PRN PRN; Protocol PRN Reason: hypoglycemia protocol Dextrose (Dextrose 50% Syringe 50 Ml) 25 ml IVP ONCE PRN; Protocol PRN Reason: hypoglycemia protocol Glucagon (Glucagon 1 Mg/Ml Inj 1 Ml) 1 mg IM ONCE PRN; Protocol PRN Reason: Adult Acute Hypoglycemia Prot. Dextrose (D5w) 500 mls @ 100 mls/hr IV ONCE PRN; Protocol PRN Reason: Adult Acute Hypoglycemia Prot Insulin Glargine (Insulin Glargine 100 Units/1 Ml) 62 unit SUBCUT BEDTIME [facility] Last Admin: 12/04/22 20:27 Dose: 62 unit Insulin Human Lispro (Insulin Lispro 100 Unit/1 Ml) 0 unit SUBCUT WM&BEDTIME [facility]; Protocol Last Admin: 12/05/22 12:29 Dose: 6 unit Levalbuterol HCl (Levalbuterol 0.63 Mg/3 Ml Neb) 0.63 mg INHALATION QID.RESPIRATORY PRN PRN Reason: SHORTNESS OF BREATH Losartan Potassium (Losartan 50 Mg Tablet) 75 mg PO DAILY [facility] Last Admin: 12/05/22 08:19 Dose: 75 mg Methylprednisolone Sodium Succinate (Methylprednisolone Sod Succ 125 Mg/2 Ml Inj) 40 mg IVP Q12H [facility] Last Admin: 12/05/22 08:22 Dose: 40 mg Metoprolol Tartrate (Metoprolol Tartrate 50 Mg Tablet) 100 mg PO BID@0900,2100 [facility] Ondansetron HCl (Ondansetron 2 Mg/Ml Sdv 2 Ml) 4 mg IVP Q8H PRN PRN Reason: vomiting, or N/V if npo Pantoprazole Sodium (Pantoprazole Dr 40 Mg Tablet) 40 mg PO BID [facility] Last Admin: 12/05/22 09:42 Dose: 40 mg Vitals/I&O/Wt Last Vital Signs Temp 97.8 F 12/05/22 12:56 Pulse 128 H 12/05/22 15:22 Resp 20 H 12/05/22 12:56 BP 136/73 12/05/22 12:56 Pulse Ox 93 12/05/22 12:56 O2 Del Method Room Air 12/05/22 08:21 O2 Flow Rate 1 12/05/22 00:00 12/05/22 12/05/22 12/05/22 06:59 14:59 22:59 Intake Total 590 / 1430 118 / 118 Output Total 1380 / 3905 Balance -790 / -2475 118 / 118 Weight last 48 hrs Weight 174 lb 12.8 oz Physical Exam Narrative: GENERAL: The patient is alert and oriented times three. Not in any acute distress. HEENT: No significant pallor, icterus or lymphadenopathy.Oral cavity: There are no mucous membrane lesions. NECK: Trachea appears to be central. No masses noted. No JVD or thyromegaly appr eciated. RESPIRATORY: Chest is symmetrical. No intercostals muscle retraction or any accessory muscle activation. There is no chest wall tenderness. Breath sounds are heard bilaterally. No rales or rhonchi heard. No evidence of any consolidation. BREASTS: Deferred. HEART: The heart sounds are normal. No S3 or S4. Short systolic murmur in the lower sternal border. No diastolic murmurs. No pericardial rub ABDOMEN: No vessel pulsations or distention. No tenderness. No organomegaly appreciated. Bowel sounds are normally heard. : Deferred. RECTAL: Deferred. LYMPHATIC: No lymphadenopathy noted in the neck. EXTREMITIES: No edema or cyanosis. No clubbing. MUSCULOSKELETAL: No acute joint deformities or swelling SKIN: There are no significant rashes or ecchymosis NEUROPSYCHIATRIC: The patient is alert and oriented x3. Appears to be in a good mood. No tremors or rigidity noted. Data 12/04/22 04:37 12/05/22 02:24 Other Labs: Laboratory Last Values WBC 13.2 10^3/uL (4.0-10.0) H 12/04/22 04:37 RBC 4.33 10^6/uL (4.1-5.3) 12/04/22 04:37 Hgb 12.8 g/dL (11.5-15.3) 12/04/22 04:37 Hct 40.0 % (37.0-47.0) 12/04/22 04:37 MCV 92.4 fl (81-99) 12/04/22 04:37 MCH 29.6 pg (28.0-34.0) 12/04/22 04:37 MCHC 32.0 g/dL (30.0-36.0) 12/04/22 04:37 RDW 13.4 % (12.1-15.1) 12/04/22 04:37 Plt Count 242 10^3/cmm (130-400) 12/04/22 04:37 MPV 10.3 fL (7.4-10.4) 12/04/22 04:37 Neut % (Auto) 87.0 % 12/04/22 04:37 Lymph % (Auto) 8.5 % 12/04/22 04:37 [place] % (Auto) 3.5 % 12/04/22 04:37 Eos % (Auto) 0.0 % 12/04/22 04:37 Baso % (Auto) 0.2 % 12/04/22 04:37 Neut # (Auto) 11.53 10^3/uL (1.8-7.7) H 12/04/22 04:37 Lymph # (Auto) 1.1 10^3/uL (0.8-4.8) 12/04/22 04:37 [place] # (Auto) 0.5 10^3/uL (0.2-0.9) 12/04/22 04:37 Eos # (Auto) 0.0 10^3/uL (0.0-0.8) 12/04/22 04:37 Baso # (Auto) 0.0 10^3/uL (0.0-0.1) 12/04/22 04:37 Nucleated RBC % (auto) 0 % 12/04/22 04:37 Nucleated RBCs # 0.0 /100WBC 12/04/22 04:37 PT 20.90 SECONDS (12.1-14.9) H 12/03/22 03:29 INR 1.73 (0.8-1.2) H 12/03/22 03:29 D-Dimer 0.42 ug/mIFEU (0-0.59) 12/03/22 03:29 Specimen Type Arterial 12/03/22 07:37 Sample Site Radial, left 12/03/22 07:37 ABG pH 7.45 (7.35-7.45) 12/03/22 07:37 ABG pCO2 40.6 mmHg (35-45) 12/03/22 07:37 ABG pO2 80.9 mmHg (80.0-100.0) 12/03/22 07:37 ABG HCO3 28.4 mmol/L (22-26) H 12/03/22 07:37 ABG O2 Saturation 97.3 12/03/22 07:37 ABG Base Excess 4.1 mmol/L (-2.0-2.0) H 12/03/22 07:37 [place] Test Pos 12/03/22 07:37 A-a O2 Gradient 8.9 mmHg (5-10) 12/03/22 07:37 Hematocrit 43.9 % (37-47) 12/03/22 07:37 Hgb O2 Saturation 95.2 % (95-100) 12/03/22 07:37 Carboxyhemoglobin 1.6 %THgb (0.4-20.1) 12/03/22 07:37 Methemoglobin 0.6 % (0.4-1.5) 12/03/22 07:37 Total Hemoglobin 14.3 g/dL (12-16) 12/03/22 07:37 Sodium 141.0 mmol/L (131-143) 12/03/22 07:37 Potassium 4.1 mmol/L (3.5-5.0) 12/03/22 07:37 Glucose 218.0 mg/dL (70-115) H 12/03/22 07:37 Ionized Calcium 1.2 mmol/L (1.1-1.4) 12/03/22 07:37 O2 Delivery Device Nc 12/03/22 07:37 O2 Liters/Min 2.0 % 12/03/22 07:37 FiO2 28.0 % 12/03/22 07:37 Environmental Quality Analyst ID [email or web address] 12/03/22 07:37 Sodium 141 mmol/L (136-145) 12/05/22 02:24 Potassium 4.2 mmol/L (3.5-5.1) 12/05/22 02:24 Chloride 99 mmol/L (98-107) 12/05/22 02:24 Carbon Dioxide 29 mmol/L (22-29) 12/05/22 02:24 Anion Gap 17.2 (5-19) 12/05/22 02:24 BUN 33 mg/dL (8-23) H 12/05/22 02:24 Creatinine 0.7 mg/dL (0.5-0.9) 12/05/22 02:24 GFR Calculation Not Reportable 12/05/22 02:24 Glucose 136 mg/dL (65-115) H 12/05/22 02:24 POC Glucose 198 mg/dL (70-110) H 12/05/22 11:05 Estimat Average Glucose 126 12/03/22 03:29 Hemoglobin A1c 6.0 % (4.0-6.0) 12/03/22 03:29 Calculated Osmolality 301 mOsm/kg (285-295) H 12/05/22 02:24 Calcium 9.4 mg/dL (8.5-10.5) 12/05/22 02:24 Magnesium 1.9 mg/dL (1.7-2.3) 12/04/22 04:37 Total Bilirubin 0.8 mg/dL (0.15-1.2) 12/03/22 03:29 AST 20 U/L (0-32) 12/03/22 03:29 ALT 24 U/L (0-33) 12/03/22 03:29 Alkaline Phosphatase 74 U/L (35-105) 12/03/22 03:29 Troponin T Baseline 12 ng/L (0-10) H 12/03/22 03:29 Troponin T 120 Minute 9.76 ng/L (0-10) 12/03/22 05:03 Delta Troponin T -2.24 ABS# (0-10) L 12/03/22 05:03 Troponin T Hi Sens 6Hr 9.04 ng/L (0-10) 12/03/22 09:20 Troponin T Hi Sens 6Hr Delta -2.96 ng/L (0-12) L 12/03/22 09:20 NT-Pro-B Natriuret Pep 954 pg/mL (0-450) H 12/03/22 03:29 Total Protein 6.5 g/dL (6.6-8.7) L 12/03/22 03:29 Albumin 3.9 g/dL (3.5-5.2) 12/03/22 03:29 Globulin 2.6 g/dL (1.3-4.6) 12/03/22 03:29 Procalcitonin 0.04 ng/mL (0-0.5) 12/03/22 03:29 TSH 2.09 uIU/mL (0.27-4.20) 12/03/22 03:29 A&P Assessment and plan (1) Atrial fibrillation with rapid ventricular response: For better rhythm with a heart rate, I may give a total of 1 mg of digoxin I as the loading dose. Continue the metoprolol. Continue on the current medications as the disease (2) Upper respiratory infection: Antibiotic treatment as per the primary. (3) Acute diastolic heart failure: She seems to be responding to the Lasix appropriately. We will repeat the BMP in the morning. (4) Hypertension: Blood sugar seems to be fairly under control. May continue on the current antihypertensive medications. Qualifiers: Hypertension type: secondary to endocrine disorders Qualified Code(s): I15.2 - Hypertension secondary to endocrine disorders (5) Hyperlipidemia: May continue on the current medications. Qualifiers: Hyperlipidemia type: mixed hyperlipidemia Qualified Code(s): E78.2 - Mixed hyperlipidemia (6) Obstructive sleep apnea: Patient refused the CPAP. 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 This may be done as an outpatient. Qualifiers: [place] vs. transplanted heart: [place] heart Qualified Code(s): I25.10 - Atherosclerotic heart disease of [place] coronary artery without angina pectoris Plan Based on the results of the above tests and the patient's clinical progress, further recommendations will be made. Attestations Medical Necessity Statement*: Patient requires continued hospital stay for close monitoring and further management Coding Level of Care Code 13158 Diagnoses Atrial fibrillation with rapid ventricular response I48.91 Upper respiratory infection J06.9 Acute diastolic heart failure I50.31 Hypertension I15.2 Hypertension type: secondary to endocrine disorders Hyperlipidemia E78.2 Hyperlipidemia type: mixed hyperlipidemia Obstructive sleep apnea G47.33 Atherosclerotic heart disease of [place] coronary artery without angina pectoris I25.10 [place] vs. transplanted heart: [place] heart
--- NOTE | 2022-12-05 16:31 | PC.NURSE ---
Patient family expressed concern about patient acting differently and seeming more fatigued. Nurse contacted Dr. Granado who said the patient needs sleep and that she may have a one time order for restoril 7.5. I spoke with family about letting her have some peace and letting her rest. I also placed a sign on the door that advised against visitors. Updated patient and she was agreeable. I also asked to move her to a room closer to the nurses station and the family declined.
--- NOTE | 2022-12-05 19:18 | PM.PN ---
Subjective Subjective: Patient at bedside today morning- Heart rate still uncontrolled-cardiology on board Considering to do stress test to rule out underlying ischemia Currently she is on metoprolol 100 Mg p.o. twice daily and digoxin -She is on Lasix 40 every 8--2.4 L and net -1.2 L since admission She is requiring 89% on room air Other labs and imaging reviewed Medications: Reviewed: Yes Medication Review Details: Current Medications Acetaminophen (Acetaminophen 325 Mg Tablet) 650 mg PO Q6H PRN PRN Reason: Mild/Mod Pain Or Temp >/= 101 Last Admin: 12/04/22 05:40 Dose: 650 mg Apixaban (Apixaban 5 Mg Tablet) 5 mg PO BID@0900,2100 [facility] Last Admin: 12/05/22 08:20 Dose: 5 mg Ascorbic Acid (Ascorbic Acid 500 Mg Tablet) 1,000 mg PO DAILY [facility] Last Admin: 12/05/22 08:19 Dose: 1,000 mg Clopidogrel Bisulfate (Clopidogrel 75 Mg Tablet) 75 mg PO DAILY [facility] Last Admin: 12/05/22 08:21 Dose: 75 mg Dextrose (Dextrose 50% Syringe 50 Ml) 50 ml IVP PRN PRN; Protocol PRN Reason: hypoglycemia protocol Dextrose (Dextrose 50% Syringe 50 Ml) 25 ml IVP ONCE PRN; Protocol PRN Reason: hypoglycemia protocol Glucagon (Glucagon 1 Mg/Ml Inj 1 Ml) 1 mg IM ONCE PRN; Protocol PRN Reason: Adult Acute Hypoglycemia Prot. Dextrose (D5w) 500 mls @ 100 mls/hr IV ONCE PRN; Protocol PRN Reason: Adult Acute Hypoglycemia Prot Insulin Glargine (Insulin Glargine 100 Units/1 Ml) 62 unit SUBCUT BEDTIME [facility] Last Admin: 12/04/22 20:27 Dose: 62 unit Insulin Human Lispro (Insulin Lispro 100 Unit/1 Ml) 0 unit SUBCUT WM&BEDTIME [facility]; Protocol Last Admin: 12/05/22 12:29 Dose: 6 unit Levalbuterol HCl (Levalbuterol 0.63 Mg/3 Ml Neb) 0.63 mg INHALATION QID.RESPIRATORY PRN PRN Reason: SHORTNESS OF BREATH Losartan Potassium (Losartan 50 Mg Tablet) 75 mg PO DAILY [facility] Last Admin: 12/05/22 08:19 Dose: 75 mg Methylprednisolone Sodium Succinate (Methylprednisolone Sod Succ 125 Mg/2 Ml Inj) 40 mg IVP Q12H [facility] Last Admin: 12/05/22 08:22 Dose: 40 mg Metoprolol Tartrate (Metoprolol Tartrate 50 Mg Tablet) 100 mg PO BID@0900,2100 [facility] Ondansetron HCl (Ondansetron 2 Mg/Ml Sdv 2 Ml) 4 mg IVP Q8H PRN PRN Reason: vomiting, or N/V if npo Pantoprazole Sodium (Pantoprazole Dr 40 Mg Tablet) 40 mg PO BID [facility] Last Admin: 12/05/22 09:42 Dose: 40 mg Vitals/I&O/Wt Last Vital Signs Temp 98.0 F 12/05/22 16:15 Pulse 117 H 12/05/22 16:15 Resp 21 H 12/05/22 16:15 BP 122/86 12/05/22 16:15 Pulse Ox 86 L 12/05/22 16:15 O2 Del Method Room Air 12/05/22 08:21 O2 Flow Rate 1 12/05/22 00:00 12/05/22 12/05/22 12/05/22 06:59 14:59 22:59 Intake Total 590 / 1430 118 / 118 Output Total 1380 / 3905 Balance -790 / -2475 118 / 118 Weight last 48 hrs Weight 174 lb 12.8 oz Physical Exam Narrative: General: alert, NAD HEENT: conj clear, EOMI, PERRL, mmm, Neck: supple, no meningismus Heme: no cervical LAP Respiratory: Inspection: No visible deformity of the chest wall Palpation: Trachea is mildly deviated to the right, bilateral symmetric expansion Percussion: Bilateral tympanic percussion note both anterior and posteriorly Auscultation: Bibasilar inspiratory crepitations Cardiovascular: rrr, nl s1s2, no mrg Abdomen: soft, nt, nd, no r/g, bs+ Extremities: pulses +, 1+ pitting pedal edema, no c/c : no CVA tenderness Skin: intact, no rash MSK: no back or neck pain Neurologic: grossly intact Data 12/04/22 04:37 12/05/22 02:24 Other Labs: Radiology Impressions Chest X-Ray 12/03/22 03:11 IMPRESSION: 1. Heart is enlarged but stable when compared to the prior exam. 2. Interval worsening of bilateral pleuroparenchymal disease. Chest CT 12/03/22 06:13 IMPRESSION: 1. New bilateral groundglass airspace infiltrates more prominent in the perihilar regions. Recommend correlation for pneumonia versus pulmonary edema. Small RIGHT and trace LEFT pleural fluid. 2. No focal consolidation. 3. Marked cardiomegaly. 4. Prominent peribronchial lymph nodes slightly progressed compared to previous likely reactive. 5. Cholecystectomy clips. 6. Small moderate esophageal hiatal hernia. Laboratory Results WBC 13.2 10^3/uL (4.0-10.0) H 12/04/22 04:37 RBC 4.33 10^6/uL (4.1-5.3) 12/04/22 04:37 Hgb 12.8 g/dL (11.5-15.3) 12/04/22 04:37 Hct 40.0 % (37.0-47.0) 12/04/22 04:37 MCV 92.4 fl (81-99) 12/04/22 04:37 MCH 29.6 pg (28.0-34.0) 12/04/22 04:37 MCHC 32.0 g/dL (30.0-36.0) 12/04/22 04:37 RDW 13.4 % (12.1-15.1) 12/04/22 04:37 Plt Count 242 10^3/cmm (130-400) 12/04/22 04:37 MPV 10.3 fL (7.4-10.4) 12/04/22 04:37 Neut % (Auto) 87.0 % 12/04/22 04:37 Lymph % (Auto) 8.5 % 12/04/22 04:37 [place] % (Auto) 3.5 % 12/04/22 04:37 Eos % (Auto) 0.0 % 12/04/22 04:37 Baso % (Auto) 0.2 % 12/04/22 04:37 Neut # (Auto) 11.53 10^3/uL (1.8-7.7) H 12/04/22 04:37 Lymph # (Auto) 1.1 10^3/uL (0.8-4.8) 12/04/22 04:37 [place] # (Auto) 0.5 10^3/uL (0.2-0.9) 12/04/22 04:37 Eos # (Auto) 0.0 10^3/uL (0.0-0.8) 12/04/22 04:37 Baso # (Auto) 0.0 10^3/uL (0.0-0.1) 12/04/22 04:37 Nucleated RBC % (auto) 0 % 12/04/22 04:37 Nucleated RBCs # 0.0 /100WBC 12/04/22 04:37 PT 20.90 SECONDS (12.1-14.9) H 12/03/22 03:29 INR 1.73 (0.8-1.2) H 12/03/22 03:29 D-Dimer 0.42 ug/mIFEU (0-0.59) 12/03/22 03:29 Specimen Type Arterial 12/03/22 07:37 Sample Site Radial, left 12/03/22 07:37 ABG pH 7.45 (7.35-7.45) 12/03/22 07:37 ABG pCO2 40.6 mmHg (35-45) 12/03/22 07:37 ABG pO2 80.9 mmHg (80.0-100.0) 12/03/22 07:37 ABG HCO3 28.4 mmol/L (22-26) H 12/03/22 07:37 ABG O2 Saturation 97.3 12/03/22 07:37 ABG Base Excess 4.1 mmol/L (-2.0-2.0) H 12/03/22 07:37 [place] Test Pos 12/03/22 07:37 A-a O2 Gradient 8.9 mmHg (5-10) 12/03/22 07:37 Hematocrit 43.9 % (37-47) 12/03/22 07:37 Hgb O2 Saturation 95.2 % (95-100) 12/03/22 07:37 Carboxyhemoglobin 1.6 %THgb (0.4-20.1) 12/03/22 07:37 Methemoglobin 0.6 % (0.4-1.5) 12/03/22 07:37 Total Hemoglobin 14.3 g/dL (12-16) 12/03/22 07:37 Sodium 141.0 mmol/L (131-143) 12/03/22 07:37 Potassium 4.1 mmol/L (3.5-5.0) 12/03/22 07:37 Glucose 218.0 mg/dL (70-115) H 12/03/22 07:37 Ionized Calcium 1.2 mmol/L (1.1-1.4) 12/03/22 07:37 O2 Delivery Device Nc 12/03/22 07:37 O2 Liters/Min 2.0 % 12/03/22 07:37 FiO2 28.0 % 12/03/22 07:37 Hplc Chemist ID [email or web address] 12/03/22 07:37 Sodium 141 mmol/L (136-145) 12/05/22 02:24 Potassium 4.2 mmol/L (3.5-5.1) 12/05/22 02:24 Chloride 99 mmol/L (98-107) 12/05/22 02:24 Carbon Dioxide 29 mmol/L (22-29) 12/05/22 02:24 Anion Gap 17.2 (5-19) 12/05/22 02:24 BUN 33 mg/dL (8-23) H 12/05/22 02:24 Creatinine 0.7 mg/dL (0.5-0.9) 12/05/22 02:24 GFR Calculation Not Reportable 12/05/22 02:24 Glucose 136 mg/dL (65-115) H 12/05/22 02:24 POC Glucose 198 mg/dL (70-110) H 12/05/22 11:05 Estimat Average Glucose 126 12/03/22 03:29 Hemoglobin A1c 6.0 % (4.0-6.0) 12/03/22 03:29 Calculated Osmolality 301 mOsm/kg (285-295) H 12/05/22 02:24 Calcium 9.4 mg/dL (8.5-10.5) 12/05/22 02:24 Magnesium 1.9 mg/dL (1.7-2.3) 12/04/22 04:37 Total Bilirubin 0.8 mg/dL (0.15-1.2) 12/03/22 03:29 AST 20 U/L (0-32) 12/03/22 03:29 ALT 24 U/L (0-33) 12/03/22 03:29 Alkaline Phosphatase 74 U/L (35-105) 12/03/22 03:29 Troponin T Baseline 12 ng/L (0-10) H 12/03/22 03:29 Troponin T 120 Minute 9.76 ng/L (0-10) 12/03/22 05:03 Delta Troponin T -2.24 ABS# (0-10) L 12/03/22 05:03 Troponin T Hi Sens 6Hr 9.04 ng/L (0-10) 12/03/22 09:20 Troponin T Hi Sens 6Hr Delta -2.96 ng/L (0-12) L 12/03/22 09:20 NT-Pro-B Natriuret Pep 954 pg/mL (0-450) H 12/03/22 03:29 Total Protein 6.5 g/dL (6.6-8.7) L 12/03/22 03:29 Albumin 3.9 g/dL (3.5-5.2) 12/03/22 03:29 Globulin 2.6 g/dL (1.3-4.6) 12/03/22 03:29 Procalcitonin 0.04 ng/mL (0-0.5) 12/03/22 03:29 TSH 2.09 uIU/mL (0.27-4.20) 12/03/22 03:29 A&P Assessment and plan (1) Hypoxia: Required transiently 3 L supplemental oxygen-possibly secondary to fluid overload due to A-fib RVR She was able to come off oxygen but today saturating 89 to 90% on room air ABG showed PF ratio greater than [address] on [address] chest increased perihilar groundglass opacities-suggestive of pulmonary edema more likely than infection-recently she finished a 7-day course of levofloxacin given by PCP and her procalcitonin is low-I have less suspicion for infection Her BNP is elevated Her Lasix was increased 43 times daily-she had good urine output Currently she is on metoprolol 100 Mg p.o. twice daily, digoxin 250 mcg IV every 8 she is on Eliquis as well. Cardiology on board-May plan for stress test to rule out underlying ischemia (2) Atrial fibrillation with rapid ventricular response: Currently she is on metoprolol 100 Mg p.o. twice daily, digoxin 250 mcg IV every 8 she is on Eliquis as well. 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 This was seen earliest about [address] scan that has progressed over the last 5 years.? The patient had also given history of moving into a new house around the same time.? Repeat CT chest 10/07/2022?showed moderate pulmonary fibrosis, similar to the prior study of 07/20/2020 without obvious change or progression. However her CTA today morning showed new bilateral groundglass airspace infiltrates more prominent in perihilar regions suggesting mostly pulmonary edema. There is small and trace left pleural effusion. No focal consolidation. Marked cardiomegaly. Prominent peribronchial lymph nodes slightly progressed likely reactive. Her BNP is elevated. Given her increased airspace opacities centrally-suspect fluid overload secondary to triggered event of A-fib RVR Currently her medications for A-fib RVR and fluid load are being adjusted by cardiology She recently completed her antibiotics and it may not help given her low procalcitonin and no definite consolidation. Recommended to taper down her steroids as she does not have any significant wheeze and current exacerbation secondary to fluid overload rather than underlying interstitial lung disease exacerbation Attestations Medical Necessity Statement*: She may need 24 to 48 hours hospitalization until her A-fib RVR is controlled Time Spent in Patient Care: Greater than 35 minutes (>than 50% of time spent in counselling and/or direct pt care on unit). Coding Level of Care Code 90774 Diagnoses Hypoxia R09.02 Atrial fibrillation with rapid ventricular response I48.91 Hypersensitivity pneumonitis J67.9 Time Spent (min) 35
[2022-12-05] MEDS: metoprolol tartrate 50 mg Tablet 100 MG PO (21:34)
[2022-12-05 21:36] LABS: Glucose Point of Care 180 mg/dL (70-110)
[2022-12-05] MEDS: insulin glargine 100 units/1 mL 62 UNIT SUBCUT (22:17)
[2022-12-05 22:47] LABS: Glucose Point of Care 221 mg/dL (70-110)
[2022-12-06] VITALS (12 sets, daily range): BP systolic 129–167; BP diastolic 66–90; PULSE 81–96; RESP 19–28; TEMP 36.4–37.1; O2SAT 90–96
[2022-12-06] MEDS: digoxin 250 mcg/ml INJ 2 mL IVP ×2 (02:16→11:28)
[2022-12-06 04:01] LABS: Albumin Level 3.6 g/dL (3.5-5.2); Blood Urea Nitrogen 42 mg/dL (8-23); Calcium 9.2 mg/dL (8.5-10.5); Carbon Dioxide 29 mmol/L (22-29); Chloride 98 mmol/L (98-107); Glucose 142 mg/dL (65-115); Phosphorus 4.6 mg/dL (2.5-4.5); Sodium 140 mmol/L (136-145)
[2022-12-06 04:05] LABS: Anion Gap 17.6 (5-19)
[2022-12-06 04:06] LABS: Potassium 4.6 mmol/L (3.5-5.1)
[2022-12-06 06:25] LABS: Glucose Point of Care 186 mg/dL (70-110)
[2022-12-06] MEDS: ondansetron 2 mg/ML SDV 2 mL 4 MG IVP (07:33)
[2022-12-06] MEDS: insulin lispro 100 unit/1 mL SUBCUT ×3 (07:33→20:47)
--- NOTE | 2022-12-06 09:05 | PC.SOCIAL ---
IMM update IMM updated with patient. Verbalized an understanding. Copy Pg 2 provided. Initialled, dated, timed, and placed in chart.
[2022-12-06] MEDS: apixaban 5 mg Tablet PO ×2 (09:27→20:43)
[2022-12-06] MEDS: losartan 50 mg Tablet 75 MG PO (09:28)
[2022-12-06] MEDS: ascorbic acid 500 mg Tablet 1000 MG PO (09:29)
[2022-12-06] MEDS: pantoprazole DR 40 mg Tablet PO ×2 (09:29→17:10)
[2022-12-06] MEDS: clopidogrel 75 mg Tablet PO (09:29)
[2022-12-06] MEDS: metoprolol tartrate 50 mg Tablet 100 MG PO ×2 (09:52→20:43)
[2022-12-06 12:03] LABS: Glucose Point of Care 137 mg/dL (70-110)
--- NOTE | 2022-12-06 12:14 | P.PN_ITS ---
Subjective Subjective: Patient reports she does feel better this morning as compared to yesterday morning. She reports she did not sleep all that well but her sleep was better than the night prior. She continues to endorse shortness of breath exacerbated by minimal exertion, even repositioning in bed. She continues to endorse cough and intermittent palpitations. Family is present later in the day and updated on plan of care. Medications: Reviewed: Yes Vitals/I&O/Wt Last Vital Signs Temp 98.0 F 12/06/22 11:24 Pulse 88 12/06/22 11:24 Resp 20 H 12/06/22 11:24 BP 134/66 12/06/22 09:28 Pulse Ox 92 12/06/22 11:24 O2 Del Method Room Air 12/06/22 11:24 O2 Flow Rate 1 12/05/22 00:00 12/05/22 12/06/22 12/06/22 22:59 06:59 14:59 Intake Total 240 / 358 420 / 778 360 / 360 Output Total 400 / 400 300 / 700 Balance -160 / -42 120 / 78 360 / 360 Weight last 48 hrs Weight 77.474 kg Weight 79.288 kg Physical Exam Narrative: General: Patient is awake. Lying in bed. Appears fatigued. Very pleasant. Head: Normocephalic. Atraumatic. EOM intact. Neck: No JVD. Cardiovascular: Tachycardic. No gallops. No murmurs. Lungs: Very faint crackles in dependent lung olson. No wheezing. No rales. No rhonchi. Skin: No jaundice. No rashes. Abdomen: Normal bowel sounds, abdomen soft and nontender. Genito Urinary: Genital exam not performed since complaints not related. Rectal: Rectal exam not performed since no symptoms indicated blood loss. Extremities: No cyanosis or clubbing. Musculoskeletal: No swollen or erythematous joints. Neurological: Moves all 4 extremities. No myoclonus. Data 12/04/22 04:37 12/06/22 03:00 A&P Assessment and plan (1) Atrial fibrillation with rapid ventricular response: She remains in a-fib w/ RVR, although hr is improving Telemetry monitoring Echo with normal LVEF of 55%, indeterminate diastolic dysfunction due to the rhythm, elevated RVSP to 46 mmHg, and worsening mitral regurgitation Continue anticoagulation with apixaban Continue metoprolol at increased dose Cardiology following, d/w Dr. Wong Defer digoxin and Lasix to cardiology Possible stress test on Thursday pending clinical course (2) Hypersensitivity pneumonitis: Pulmonary evaluated, follow up with Dr Pena on Thursday Continue steroids Xopenex as needed (3) Hyperlipidemia: Diet controlled Qualifiers: Hyperlipidemia type: mixed hyperlipidemia Qualified Code(s): E78.2 - Mixed hyperlipidemia (4) Hypertension: Continue metoprolol Continue losartan Qualifiers: Hypertension type: secondary to endocrine disorders Qualified Code(s): I15.2 - Hypertension secondary to endocrine disorders (5) Type 2 diabetes mellitus: Continue Lantus Sliding scale insulin correction Avoid hypoglycemia Qualifiers: Diabetes mellitus mcc insulin use: with joint terminal attack controller use Diabetes mellitus complication status: without complication Qualified Code(s): E11.9 - Type 2 diabetes mellitus without complications; Z79.4 - custodial (current) use of insulin (6) Weakness: Generalized weakness, debility, and physical deconditioning Treat underlying pneumonitis Optimize heart rate Physical therapy Plan DVT ppx: Apixaban Code Status: Full Code Attestations Medical Necessity Statement*: Patient requires ongoing hospitalization for titration of cardiac medications due to a-fib w/ RVR, supplemental oxygen support, electrolyte management, IV steroids, telemetry, and cardiology evaluation. Coding Level of Care Code Acute Code for [facility] Fwd Diagnoses Atrial fibrillation with rapid ventricular response I48.91 Hypersensitivity pneumonitis J67.9 Hyperlipidemia E78.2 Hyperlipidemia type: mixed hyperlipidemia Hypertension I15.2 Hypertension type: secondary to endocrine disorders Type 2 diabetes mellitus E11.9; Z79.4 Diabetes mellitus joint terminal attack controller insulin use: with joint terminal attack controller use Diabetes mellitus complication status: without complication Weakness R53.1
--- NOTE | 2022-12-06 13:51 | PM.PN ---
Subjective Subjective: The patient is feeling better. The heart rate on the telemetry is in the 80s and 90s. No chest pain or any unusual shortness of breath. Still has some shortness of breath with activities. Medications: Medication Review Details: Current Medications Acetaminophen (Acetaminophen 325 Mg Tablet) 650 mg PO Q6H PRN PRN Reason: Mild/Mod Pain Or Temp >/= 101 Last Admin: 12/04/22 05:40 Dose: 650 mg Apixaban (Apixaban 5 Mg Tablet) 5 mg PO BID@0900,2100 [facility] Last Admin: 12/06/22 09:27 Dose: 5 mg Ascorbic Acid (Ascorbic Acid 500 Mg Tablet) 1,000 mg PO DAILY [facility] Last Admin: 12/06/22 09:29 Dose: 1,000 mg Clopidogrel Bisulfate (Clopidogrel 75 Mg Tablet) 75 mg PO DAILY [facility] Last Admin: 12/06/22 09:29 Dose: 75 mg Dextrose (Dextrose 50% Syringe 50 Ml) 50 ml IVP PRN PRN; Protocol PRN Reason: hypoglycemia protocol Dextrose (Dextrose 50% Syringe 50 Ml) 25 ml IVP ONCE PRN; Protocol PRN Reason: hypoglycemia protocol Digoxin (Digoxin 250 Mcg/Ml Inj 2 Ml) 250 mcg IVP Q8H [facility] Stop: 12/06/22 18:59 Last Admin: 12/06/22 11:28 Dose: 250 mcg Glucagon (Glucagon 1 Mg/Ml Inj 1 Ml) 1 mg IM ONCE PRN; Protocol PRN Reason: Adult Acute Hypoglycemia Prot. Dextrose (D5w) 500 mls @ 100 mls/hr IV ONCE PRN; Protocol PRN Reason: Adult Acute Hypoglycemia Prot Insulin Glargine (Insulin Glargine 100 Units/1 Ml) 62 unit SUBCUT BEDTIME [facility] Last Admin: 12/05/22 22:17 Dose: 62 unit Insulin Human Lispro (Insulin Lispro 100 Unit/1 Ml) 0 unit SUBCUT WM&BEDTIME [facility]; Protocol Last Admin: 12/06/22 11:29 Dose: Not Given Levalbuterol HCl (Levalbuterol 0.63 Mg/3 Ml Neb) 0.63 mg INHALATION QID.RESPIRATORY PRN PRN Reason: SHORTNESS OF BREATH Losartan Potassium (Losartan 50 Mg Tablet) 75 mg PO DAILY [facility] Last Admin: 12/06/22 09:28 Dose: 75 mg Methylprednisolone Sodium Succinate (Methylprednisolone Sod Succ 125 Mg/2 Ml Inj) 40 mg IVP Q12H [facility] Last Admin: 12/06/22 09:27 Dose: 40 mg Metoprolol Tartrate (Metoprolol Tartrate 50 Mg Tablet) 100 mg PO BID@0900,2100 [facility] Last Admin: 12/06/22 09:52 Dose: 100 mg Ondansetron HCl (Ondansetron 2 Mg/Ml Sdv 2 Ml) 4 mg IVP Q8H PRN PRN Reason: vomiting, or N/V if npo Last Admin: 12/06/22 07:33 Dose: 4 mg Pantoprazole Sodium (Pantoprazole Dr 40 Mg Tablet) 40 mg PO BID [facility] Last Admin: 12/06/22 09:29 Dose: 40 mg Vitals/I&O/Wt Last Vital Signs Temp 98.0 F 12/06/22 11:24 Pulse 88 12/06/22 11:24 Resp 20 H 12/06/22 11:24 BP 134/66 12/06/22 09:28 Pulse Ox 92 12/06/22 11:24 O2 Del Method Room Air 12/06/22 11:24 O2 Flow Rate 1 12/05/22 00:00 12/05/22 12/06/22 12/06/22 22:59 06:59 14:59 Intake Total 240 / 358 420 / 778 840 / 840 Output Total 400 / 400 300 / 700 Balance -160 / -42 120 / 78 840 / 840 Weight last 48 hrs Weight 170 lb 12.8 oz Weight 174 lb 12.8 oz Physical Exam Narrative: GENERAL: The patient is alert and oriented times three. Not in any acute distress. HEENT: No significant pallor, icterus or lymphadenopathy.Oral cavity: There are no mucous membrane lesions. NECK: Trachea appears to be central. No masses noted. No JVD or thyromegaly appreciated. RESPIRATORY: Chest is symmetrical. No intercostals muscle retraction or any accessory muscle activation. There is no chest wall tenderness. Breath sounds are heard bilaterally. No rales or rhonchi heard. No evidence of any consolidation. BREASTS: Deferred. HEART: The heart sounds are normal. No S3 or S4. Short systolic murmur in the lower sternal border. No diastolic murmurs. No pericardial rub ABDOMEN: No vessel pulsations or distention. No tenderness. No organomegaly appreciated. Bowel sounds are normally heard. : Deferred. RECTAL: Deferred. LYMPHATIC: No lymphadenopathy noted in the neck. EXTREMITIES: No edema or cyanosis. No clubbing. MUSCULOSKELETAL: No acute joint deformities or swelling SKIN: There are no significant rashes or ecchymosis NEUROPSYCHIATRIC: The patient is alert and oriented x3. Appears to be in a good mood. No tremors or rigidity noted. Data 12/04/22 04:37 12/06/22 03:00 Other Labs: Laboratory Last Values WBC 13.2 10^3/uL (4.0-10.0) H 12/04/22 04:37 RBC 4.33 10^6/uL (4.1-5.3) 12/04/22 04:37 Hgb 12.8 g/dL (11.5-15.3) 12/04/22 04:37 Hct 40.0 % (37.0-47.0) 12/04/22 04:37 MCV 92.4 fl (81-99) 12/04/22 04:37 MCH 29.6 pg (28.0-34.0) 12/04/22 04:37 MCHC 32.0 g/dL (30.0-36.0) 12/04/22 04:37 RDW 13.4 % (12.1-15.1) 12/04/22 04:37 Plt Count 242 10^3/cmm (130-400) 12/04/22 04:37 MPV 10.3 fL (7.4-10.4) 12/04/22 04:37 Neut % (Auto) 87.0 % 12/04/22 04:37 Lymph % (Auto) 8.5 % 12/04/22 04:37 [place] % (Auto) 3.5 % 12/04/22 04:37 Eos % (Auto) 0.0 % 12/04/22 04:37 Baso % (Auto) 0.2 % 12/04/22 04:37 Neut # (Auto) 11.53 10^3/uL (1.8-7.7) H 12/04/22 04:37 Lymph # (Auto) 1.1 10^3/uL (0.8-4.8) 12/04/22 04:37 [place] # (Auto) 0.5 10^3/uL (0.2-0.9) 12/04/22 04:37 Eos # (Auto) 0.0 10^3/uL (0.0-0.8) 12/04/22 04:37 Baso # (Auto) 0.0 10^3/uL (0.0-0.1) 12/04/22 04:37 Nucleated RBC % (auto) 0 % 12/04/22 04:37 Nucleated RBCs # 0.0 /100WBC 12/04/22 04:37 PT 20.90 SECONDS (12.1-14.9) H 12/03/22 03:29 INR 1.73 (0.8-1.2) H 12/03/22 03:29 D-Dimer 0.42 ug/mIFEU (0-0.59) 12/03/22 03:29 Specimen Type Arterial 12/03/22 07:37 Sample Site Radial, left 12/03/22 07:37 ABG pH 7.45 (7.35-7.45) 12/03/22 07:37 ABG pCO2 40.6 mmHg (35-45) 12/03/22 07:37 ABG pO2 80.9 mmHg (80.0-100.0) 12/03/22 07:37 ABG HCO3 28.4 mmol/L (22-26) H 12/03/22 07:37 ABG O2 Saturation 97.3 12/03/22 07:37 ABG Base Excess 4.1 mmol/L (-2.0-2.0) H 12/03/22 07:37 [place] Test Pos 12/03/22 07:37 A-a O2 Gradient 8.9 mmHg (5-10) 12/03/22 07:37 Hematocrit 43.9 % (37-47) 12/03/22 07:37 Hgb O2 Saturation 95.2 % (95-100) 12/03/22 07:37 Carboxyhemoglobin 1.6 %THgb (0.4-20.1) 12/03/22 07:37 Methemoglobin 0.6 % (0.4-1.5) 12/03/22 07:37 Total Hemoglobin 14.3 g/dL (12-16) 12/03/22 07:37 Sodium 141.0 mmol/L (131-143) 12/03/22 07:37 Potassium 4.1 mmol/L (3.5-5.0) 12/03/22 07:37 Glucose 218.0 mg/dL (70-115) H 12/03/22 07:37 Ionized Calcium 1.2 mmol/L (1.1-1.4) 12/03/22 07:37 O2 Delivery Device Nc 12/03/22 07:37 O2 Liters/Min 2.0 % 12/03/22 07:37 FiO2 28.0 % 12/03/22 07:37 Drop Wire Hanger ID [email or web address] 12/03/22 07:37 Sodium 140 mmol/L (136-145) 12/06/22 03:00 Potassium 4.6 mmol/L (3.5-5.1) 12/06/22 03:00 Chloride 98 mmol/L (98-107) 12/06/22 03:00 Carbon Dioxide 29 mmol/L (22-29) 12/06/22 03:00 Anion Gap 17.6 (5-19) 12/06/22 03:00 BUN 42 mg/dL (8-23) H 12/06/22 03:00 Creatinine 0.7 mg/dL (0.5-0.9) 12/06/22 03:00 GFR Calculation Not Reportable 12/06/22 03:00 Glucose 142 mg/dL (65-115) H 12/06/22 03:00 POC Glucose 137 mg/dL (70-110) H 12/06/22 11:23 Estimat Average Glucose 126 12/03/22 03:29 Hemoglobin A1c 6.0 % (4.0-6.0) 12/03/22 03:29 Calculated Osmolality 301 mOsm/kg (285-295) H 12/05/22 02:24 Calcium 9.2 mg/dL (8.5-10.5) 12/06/22 03:00 Phosphorus 4.6 mg/dL (2.5-4.5) H 12/06/22 03:00 Magnesium 1.9 mg/dL (1.7-2.3) 12/04/22 04:37 Total Bilirubin 0.8 mg/dL (0.15-1.2) 12/03/22 03:29 AST 20 U/L (0-32) 12/03/22 03:29 ALT 24 U/L (0-33) 12/03/22 03:29 Alkaline Phosphatase 74 U/L (35-105) 12/03/22 03:29 Troponin T Baseline 12 ng/L (0-10) H 12/03/22 03:29 Troponin T 120 Minute 9.76 ng/L (0-10) 12/03/22 05:03 Delta Troponin T -2.24 ABS# (0-10) L 12/03/22 05:03 Troponin T Hi Sens 6Hr 9.04 ng/L (0-10) 12/03/22 09:20 Troponin T Hi Sens 6Hr Delta -2.96 ng/L (0-12) L 12/03/22 09:20 NT-Pro-B Natriuret Pep 954 pg/mL (0-450) H 12/03/22 03:29 Total Protein 6.5 g/dL (6.6-8.7) L 12/03/22 03:29 Albumin 3.6 g/dL (3.5-5.2) 12/06/22 03:00 Globulin 2.6 g/dL (1.3-4.6) 12/03/22 03:29 Procalcitonin 0.04 ng/mL (0-0.5) 12/03/22 03:29 TSH 2.09 uIU/mL (0.27-4.20) 12/03/22 03:29 A&P Assessment and plan (1) Atrial fibrillation with rapid ventricular response: For better rhythm with a heart rate, I may give a total of 1 mg of digoxin I as the loading dose. Continue the metoprolol. Continue on the current medications as the disease (2) Upper respiratory infection: Antibiotic treatment as per the primary. (3) Acute diastolic heart failure: The heart failure seems to be compensated at this time. If the patient is going to stay in the hospital over the weekend, it might be appropriate to schedule her for a Myocardial perfusion imaging to evaluate for any underlying coronary ischemia. This may be done on Thursday. (4) Hypertension: Blood sugar seems to be fairly under control. May continue on the current antihypertensive medications. Qualifiers: Hypertension type: secondary to endocrine disorders Qualified Code(s): I15.2 - Hypertension secondary to endocrine disorders (5) Hyperlipidemia: May continue on the current medications. Qualifiers: Hyperlipidemia type: mixed hyperlipidemia Qualified Code(s): E78.2 - Mixed hyperlipidemia (6) Obstructive sleep apnea: Patient refused the CPAP. 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 As mentioned above Qualifiers: [place] vs. transplanted heart: [place] heart Qualified Code(s): I25.10 - Atherosclerotic heart disease of [place] coronary artery without angina pectoris Plan Based on the results of the above tests and the patient's clinical progress, further recommendations will be made. Attestations Medical Necessity Statement*: Disposition as per the primary Coding Level of Care Code 63718 Diagnoses Atrial fibrillation with rapid ventricular response I48.91 Upper respiratory infection J06.9 Acute diastolic heart failure I50.31 Hypertension I15.2 Hypertension type: secondary to endocrine disorders Hyperlipidemia E78.2 Hyperlipidemia type: mixed hyperlipidemia Obstructive sleep apnea G47.33 Atherosclerotic heart disease of [place] coronary artery without angina pectoris I25.10 [place] vs. transplanted heart: [place] heart
--- NOTE | 2022-12-06 13:55 | ECG_ITS ---
[facility] Test Date: 2022-12-08 Pat Name: Eloisa Campbell Department: Room: 101 Gender: Female [employer] Operator: : [id number] Requested By: Flo Wong Order Number: [id number] Bronson MD: Flo Wong M.D. Interpretive Statements NAME OF STUDY: LEXISCAN SESTAMIBI STRESS TEST INDICATION: Chest Pain Nuclear Dose 3.29 mCi Aminophylline 25 mg IVP given for Nausea/Shortness of breath. PROCEDURE: At the baseline, the EKG revealed atrial fibrillation with a controlled ventricular response rate. Diffuse nonspecific T wave changes. The baseline heart was 92 bpm with a blood pressue of 138/97 mm of Hg Lexiscan was infused over a period of 20 seconds. A total of 0.4 milligrams of Lexiscan was infused. The stress phase was continued for a total of 5 minutes. Heart rate at the end of the stress phase was 96 bpm with a blood pressure 122/94 mm of Hg. The EKG at the peak infusion revealed no significant changes. Sestamibi was injected 20 seconds after the Lexiscan infusion. Heart rate at the end of the recovery phase was 100 bpm with a blood pressure of 113/86 mm of Hg. CONCLUSION: 1. No significant EKG changes with the LexiScan infusion 2. No LexiScan induced chest pain or cardiac arrhythmia 3. Normal blood pressure and heart rate response 4. Sestamibi/sestamibi perfusion scan pending; see separate report. Electronically Signed On 12-08-2022 11:47:34 CDT by Flo Wong M.D. [email or web address]
[2022-12-06 16:51] LABS: Glucose Point of Care 191 mg/dL (70-110)
[2022-12-06 20:14] LABS: Glucose Point of Care 164 mg/dL (70-110)
[2022-12-06] MEDS: insulin glargine 100 units/1 mL 62 UNIT SUBCUT (20:45)
[2022-12-07] VITALS (11 sets, daily range): BP systolic 134–167; BP diastolic 84–100; PULSE 76–102; RESP 16–24; TEMP 36.4–37.2; O2SAT 90–97
[2022-12-07 06:19] LABS: Basophils % 0.1 %; Hematocrit 50.5 % (37.0-47.0); Hemoglobin 15.8 g/dL (11.5-15.3); Lymphocytes # 1.3 10^3/uL (0.8-4.8); Lymphocytes % 10.1 %; Mean Corpuscular HGB Conc 31.3 g/dL (30.0-36.0); Mean Corpuscular Hemoglobin 28.7 pg (28.0-34.0); Mean Corpuscular Volume 91.7 fl (81-99); Mean Platelet Volume 10.3 fL (7.4-10.4); Monocytes # 0.4 10^3/uL (0.2-0.9); Monocytes % 3.4 %; Neutrophils # 10.74 10^3/uL (1.8-7.7); Neutrophils % 85.8 %; Nucleated Red Blood Cells % 0 %; Platelet Count 302 10^3/cmm (130-400); Red Blood Count 5.51 10^6/uL (4.1-5.3); Red Cell Distribution Width 12.7 % (12.1-15.1); White Blood Count 12.5 10^3/uL (4.0-10.0)
[2022-12-07 06:20] LABS: Glucose Point of Care 135 mg/dL (70-110)
[2022-12-07 06:37] LABS: Albumin Level 3.2 g/dL (3.5-5.2); Anion Gap 15.5 (5-19); Blood Urea Nitrogen 45 mg/dL (8-23); Calcium 9.2 mg/dL (8.5-10.5); Carbon Dioxide 28 mmol/L (22-29); Chloride 101 mmol/L (98-107); Glucose 160 mg/dL (65-115); Magnesium 2.1 mg/dL (1.7-2.3); Phosphorus 3.9 mg/dL (2.5-4.5); Potassium 4.5 mmol/L (3.5-5.1); Sodium 140 mmol/L (136-145)
[2022-12-07 07:24] LABS: Glucose Point of Care 118 mg/dL (70-110)
[2022-12-07] MEDS: losartan 50 mg Tablet 75 MG PO (08:19)
--- NOTE | 2022-12-07 08:20 | P.PN_ITS ---
Subjective Subjective: Patient denies any chest pain or chest tightness. The vital signs remained stable. Telemetry shows atrial fibrillation with mostly controlled ventricular response rate. Medications: Medication Review Details: Current Medications Acetaminophen (Acetaminophen 325 Mg Tablet) 650 mg PO Q6H PRN PRN Reason: Mild/Mod Pain Or Temp >/= 101 Last Admin: 12/04/22 05:40 Dose: 650 mg Apixaban (Apixaban 5 Mg Tablet) 5 mg PO BID@0900,2100 ON LICENSE OF [facility] Last Admin: 12/06/22 20:43 Dose: 5 mg Ascorbic Acid (Ascorbic Acid 500 Mg Tablet) 1,000 mg PO DAILY ON LICENSE OF [facility] Last Admin: 12/06/22 09:29 Dose: 1,000 mg Clopidogrel Bisulfate (Clopidogrel 75 Mg Tablet) 75 mg PO DAILY ON LICENSE OF [facility] Last Admin: 12/06/22 09:29 Dose: 75 mg Dextrose (Dextrose 50% Syringe 50 Ml) 50 ml IVP PRN PRN; Protocol PRN Reason: hypoglycemia protocol Dextrose (Dextrose 50% Syringe 50 Ml) 25 ml IVP ONCE PRN; Protocol PRN Reason: hypoglycemia protocol Glucagon (Glucagon 1 Mg/Ml Inj 1 Ml) 1 mg IM ONCE PRN; Protocol PRN Reason: Adult Acute Hypoglycemia Prot. Dextrose (D5w) 500 mls @ 100 mls/hr IV ONCE PRN; Protocol PRN Reason: Adult Acute Hypoglycemia Prot Insulin Glargine (Insulin Glargine 100 Units/1 Ml) 62 unit SUBCUT BEDTIME ON LICENSE OF [facility] Last Admin: 12/06/22 20:45 Dose: 62 unit Insulin Human Lispro (Insulin Lispro 100 Unit/1 Ml) 0 unit SUBCUT WM&BEDTIME ON LICENSE OF [facility]; Protocol Last Admin: 12/07/22 07:32 Dose: Not Given Levalbuterol HCl (Levalbuterol 0.63 Mg/3 Ml Neb) 0.63 mg INHALATION QID.RESPIRATORY PRN PRN Reason: SHORTNESS OF BREATH Losartan Potassium (Losartan 50 Mg Tablet) 75 mg PO DAILY ON LICENSE OF [facility] Last Admin: 12/06/22 09:28 Dose: 75 mg Methylprednisolone Sodium Succinate (Methylprednisolone Sod Succ 125 Mg/2 Ml Inj) 40 mg IVP Q12H ON LICENSE OF [facility] Last Admin: 12/06/22 20:44 Dose: 40 mg Metoprolol Tartrate (Metoprolol Tartrate 50 Mg Tablet) 100 mg PO BID@0900,2100 ON LICENSE OF [facility] Last Admin: 12/06/22 20:43 Dose: 100 mg Ondansetron HCl (Ondansetron 2 Mg/Ml Sdv 2 Ml) 4 mg IVP Q8H PRN PRN Reason: vomiting, or N/V if npo Last Admin: 12/06/22 07:33 Dose: 4 mg Pantoprazole Sodium (Pantoprazole Dr 40 Mg Tablet) 40 mg PO BID KODY Last Admin: 12/06/22 17:10 Dose: 40 mg Vitals/I&O/Wt Last Vital Signs Temp 98.6 F 12/07/22 07:25 Pulse 76 12/07/22 08:15 Resp 16 12/07/22 08:15 BP 147/88 12/07/22 07:25 Pulse Ox 94 12/07/22 08:15 O2 Del Method Room Air 12/07/22 08:15 O2 Flow Rate 2 12/07/22 02:47 12/06/22 12/07/22 12/07/22 22:59 06:59 14:59 Intake Total 240 / 1080 Balance 240 / 1080 Weight last 48 hrs Weight 170 lb 12.8 oz Physical Exam Narrative: GENERAL: The patient is alert and oriented times three. Not in any acute distress. HEENT: No significant pallor, icterus or lymphadenopathy.Oral cavity: There are no mucous membrane lesions. NECK: Trachea appears to be central. No masses noted. No JVD or thyromegaly appreciated. RESPIRATORY: Chest is symmetrical. No intercostals muscle retraction or any accessory muscle activation. There is no chest wall tenderness. Breath sounds are heard bilaterally. No rales or rhonchi heard. No evidence of any consolidation. BREASTS: Deferred. HEART: The heart sounds are normal. No S3 or S4. Short systolic murmur in the lower sternal border. No diastolic murmurs. No pericardial rub ABDOMEN: No vessel pulsations or distention. No tenderness. No organomegaly ap preciated. Bowel sounds are normally heard. : Deferred. RECTAL: Deferred. LYMPHATIC: No lymphadenopathy noted in the neck. EXTREMITIES: No edema or cyanosis. No clubbing. MUSCULOSKELETAL: No acute joint deformities or swelling SKIN: There are no significant rashes or ecchymosis NEUROPSYCHIATRIC: The patient is alert and oriented x3. Appears to be in a good mood. No tremors or rigidity noted. Data 12/07/22 05:32 12/07/22 05:32 Other Labs: Laboratory Last Values WBC 12.5 10^3/uL (4.0-10.0) H 12/07/22 05:32 RBC 5.51 10^6/uL (4.1-5.3) H 12/07/22 05:32 Hgb 15.8 g/dL (11.5-15.3) H 12/07/22 05:32 Hct 50.5 % (37.0-47.0) H 12/07/22 05:32 MCV 91.7 fl (81-99) 12/07/22 05:32 MCH 28.7 pg (28.0-34.0) 12/07/22 05:32 MCHC 31.3 g/dL (30.0-36.0) 12/07/22 05:32 RDW 12.7 % (12.1-15.1) 12/07/22 05:32 Plt Count 302 10^3/cmm (130-400) 12/07/22 05:32 MPV 10.3 fL (7.4-10.4) 12/07/22 05:32 Neut % (Auto) 85.8 % 12/07/22 05:32 Lymph % (Auto) 10.1 % 12/07/22 05:32 [place] % (Auto) 3.4 % 12/07/22 05:32 Eos % (Auto) 0.0 % 12/07/22 05:32 Baso % (Auto) 0.1 % 12/07/22 05:32 Neut # (Auto) 10.74 10^3/uL (1.8-7.7) H 12/07/22 05:32 Lymph # (Auto) 1.3 10^3/uL (0.8-4.8) 12/07/22 05:32 [place] # (Auto) 0.4 10^3/uL (0.2-0.9) 12/07/22 05:32 Eos # (Auto) 0.0 10^3/uL (0.0-0.8) 12/07/22 05:32 Baso # (Auto) 0.0 10^3/uL (0.0-0.1) 12/07/22 05:32 Nucleated RBC % (auto) 0 % 12/07/22 05:32 Nucleated RBCs # 0.0 /100WBC 12/07/22 05:32 PT 20.90 SECONDS (12.1-14.9) H 12/03/22 03:29 INR 1.73 (0.8-1.2) H 12/03/22 03:29 D-Dimer 0.42 ug/mIFEU (0-0.59) 12/03/22 03:29 Specimen Type Arterial 12/03/22 07:37 Sample Site Radial, left 12/03/22 07:37 ABG pH 7.45 (7.35-7.45) 12/03/22 07:37 ABG pCO2 40.6 mmHg (35-45) 12/03/22 07:37 ABG pO2 80.9 mmHg (80.0-100.0) 12/03/22 07:37 ABG HCO3 28.4 mmol/L (22-26) H 12/03/22 07:37 ABG O2 Saturation 97.3 12/03/22 07:37 ABG Base Excess 4.1 mmol/L (-2.0-2.0) H 12/03/22 07:37 [place] Test Pos 12/03/22 07:37 A-a O2 Gradient 8.9 mmHg (5-10) 12/03/22 07:37 Hematocrit 43.9 % (37-47) 12/03/22 07:37 Hgb O2 Saturation 95.2 % (95-100) 12/03/22 07:37 Carboxyhemoglobin 1.6 %THgb (0.4-20.1) 12/03/22 07:37 Methemoglobin 0.6 % (0.4-1.5) 12/03/22 07:37 Total Hemoglobin 14.3 g/dL (12-16) 12/03/22 07:37 Sodium 141.0 mmol/L (131-143) 12/03/22 07:37 Potassium 4.1 mmol/L (3.5-5.0) 12/03/22 07:37 Glucose 218.0 mg/dL (70-115) H 12/03/22 07:37 Ionized Calcium 1.2 mmol/L (1.1-1.4) 12/03/22 07:37 O2 Delivery Device Nc 12/03/22 07:37 O2 Liters/Min 2.0 % 12/03/22 07:37 FiO2 28.0 % 12/03/22 07:37 Wire Loop Machine Operator ID [email or web address] 12/03/22 07:37 Sodium 140 mmol/L (136-145) 12/07/22 05:32 Potassium 4.5 mmol/L (3.5-5.1) 12/07/22 05:32 Chloride 101 mmol/L (98-107) 12/07/22 05:32 Carbon Dioxide 28 mmol/L (22-29) 12/07/22 05:32 Anion Gap 15.5 (5-19) 12/07/22 05:32 BUN 45 mg/dL (8-23) H 12/07/22 05:32 Creatinine 0.7 mg/dL (0.5-0.9) 12/07/22 05:32 GFR Calculation Not Reportable 12/07/22 05:32 Glucose 160 mg/dL (65-115) H 12/07/22 05:32 POC Glucose 118 mg/dL (70-110) H 12/07/22 07:14 Estimat Average Glucose 126 12/03/22 03:29 Hemoglobin A1c 6.0 % (4.0-6.0) 12/03/22 03:29 Calculated Osmolality 301 mOsm/kg (285-295) H 12/05/22 02:24 Calcium 9.2 mg/dL (8.5-10.5) 12/07/22 05:32 Phosphorus 3.9 mg/dL (2.5-4.5) 12/07/22 05:32 Magnesium 2.1 mg/dL (1.7-2.3) 12/07/22 05:32 Total Bilirubin 0.8 mg/dL (0.15-1.2) 12/03/22 03:29 AST 20 U/L (0-32) 12/03/22 03:29 ALT 24 U/L (0-33) 12/03/22 03:29 Alkaline Phosphatase 74 U/L (35-105) 12/03/22 03:29 Troponin T Baseline 12 ng/L (0-10) H 12/03/22 03:29 Troponin T 120 Minute 9.76 ng/L (0-10) 12/03/22 05:03 Delta Troponin T -2.24 ABS# (0-10) L 12/03/22 05:03 Troponin T Hi Sens 6Hr 9.04 ng/L (0-10) 12/03/22 09:20 Troponin T Hi Sens 6Hr Delta -2.96 ng/L (0-12) L 12/03/22 09:20 NT-Pro-B Natriuret Pep 954 pg/mL (0-450) H 12/03/22 03:29 Total Protein 6.5 g/dL (6.6-8.7) L 12/03/22 03:29 Albumin 3.2 g/dL (3.5-5.2) L 12/07/22 05:32 Globulin 2.6 g/dL (1.3-4.6) 12/03/22 03:29 Procalcitonin 0.04 ng/mL (0-0.5) 12/03/22 03:29 TSH 2.09 uIU/mL (0.27-4.20) 12/03/22 03:29 A&P Assessment and plan (1) Atrial fibrillation with rapid ventricular response: The digoxin 0.125 mg p.o. daily. May continue his other medications as it is. We will continue close monitoring (2) Upper respiratory infection: Antibiotic treatment as per the primary. (3) Acute diastolic heart failure: The heart failure seems to be compensated at this time. Scheduled for the Myocardial perfusion imaging in the morning (4) Hypertension: Blood sugar seems to be fairly under control. May continue on the current antihypertensive medications. Qualifiers: Hypertension type: secondary to endocrine disorders Qualified Code(s): I15.2 - Hypertension secondary to endocrine disorders (5) Hyperlipidemia: May continue on the current medications. Qualifiers: Hyperlipidemia type: mixed hyperlipidemia Qualified Code(s): E78.2 - Mixed hyperlipidemia (6) Obstructive sleep apnea: Patient refused the CPAP. 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 transplanted heart: [place] heart Qualified Code(s): I25.10 - Atherosclerotic heart disease of [place] coronary artery without angina pectoris Plan Based on the results of the above tests and the patient's clinical progress, further recommendations will be made. Attestations Medical Necessity Statement*: Disposition as per the primary Coding Level of Care Code 25380 Diagnoses Atrial fibrillation with rapid ventricular response I48.91 Upper respiratory infection J06.9 Acute diastolic heart failure I50.31 Hypertension I15.2 Hypertension type: secondary to endocrine disorders Hyperlipidemia E78.2 Hyperlipidemia type: mixed hyperlipidemia Obstructive sleep apnea G47.33 Atherosclerotic heart disease of [place] coronary artery without angina pectoris I25.10 [place] vs. transplanted heart: [place] heart
[2022-12-07] MEDS: clopidogrel 75 mg Tablet PO (08:21)
[2022-12-07] MEDS: metoprolol tartrate 50 mg Tablet 100 MG PO ×2 (08:21→20:26)
[2022-12-07] MEDS: apixaban 5 mg Tablet PO ×2 (08:21→20:26)
[2022-12-07] MEDS: pantoprazole DR 40 mg Tablet PO (08:21)
[2022-12-07] MEDS: ascorbic acid 500 mg Tablet 1000 MG PO (08:21)
--- NOTE | 2022-12-07 09:56 | P.PN_ITS ---
Subjective Subjective: Patient states she slept better last night. She is now on room air. She reports ongoing shortness of breath with cough exacerbated by exertion, although symptoms do seem to be improving. Denies chest, nausea, or emesis. Medications: Reviewed: Yes Vitals/I&O/Wt Last Vital Signs Temp 98.6 F 12/07/22 07:25 Pulse 76 12/07/22 08:15 Resp 16 12/07/22 08:15 BP 147/88 12/07/22 08:19 Pulse Ox 94 12/07/22 08:15 O2 Del Method Room Air 12/07/22 08:15 O2 Flow Rate 2 12/07/22 02:47 12/06/22 12/07/22 12/07/22 22:59 06:59 14:59 Intake Total 240 / 1080 480 / 480 Balance 240 / 1080 480 / 480 Weight last 48 hrs Weight 77.474 kg Physical Exam Narrative: General: Patient is awake. Alert. Lying in bed. Head: Normocephalic. Atraumatic. EOM intact. Neck: No JVD. Cardiovascular: Irregularly irregular rhythm. Regular rate. No gallops. No murmurs. Lungs: Very faint crackles in dependent lung olson. No wheezing. No rales. No rhonchi. Skin: No jaundice. No rashes. Abdomen: Normal bowel sounds, abdomen soft and nontender. Genito Urinary: Genital exam not performed since complaints not related. Rectal: Rectal exam not performed since no symptoms indicated blood loss. Extremities: No cyanosis or clubbing. Musculoskeletal: No swollen or erythematous joints. Neurological: Moves all 4 extremities. No myoclonus. Data 12/07/22 05:32 12/07/22 05:32 A&P Assessment and plan (1) Atrial fibrillation with rapid ventricular response: She remains on atrial fibrillation, heart rate is improving with treatment Continuous telemetry monitoring Echo with normal LVEF of 55%, indeterminate diastolic dysfunction due to the rhythm, elevated RVSP to 46 mmHg, and worsening mitral regurgitation Continue anticoagulation with apixaban Continue metoprolol at increased dose Loaded with digoxin Cardiology following, d/w Dr. Wong Possible stress test on Thursday pending clinical course (2) Hypersensitivity pneumonitis: Pulmonary evaluated, follow up with Dr Pena on Thursday Continue steroids Xopenex as needed (3) Hyperlipidemia: Diet controlled Qualifiers: Hyperlipidemia type: mixed hyperlipidemia Qualified Code(s): E78.2 - Mixed hyperlipidemia (4) Hypertension: Continue metoprolol Continue losartan Qualifiers: Hypertension type: secondary to endocrine disorders Qualified Code(s): I15.2 - Hypertension secondary to endocrine disorders (5) Type 2 diabetes mellitus: Continue Lantus Sliding scale insulin correction Avoid hypoglycemia Qualifiers: Diabetes mellitus intermediate designer insulin use: with intermediate designer use Diabetes mellitus complication status: without complication Qualified Code(s): E11.9 - Type 2 diabetes mellitus without complications; Z79.4 - terminal gauger supervisor (current) use of insulin (6) Weakness: Generalized weakness, debility, and physical deconditioning Treat underlying pneumonitis Optimize heart rate Physical therapy (7) Acute diastolic heart failure: Plan for MPS on Thursday Strict I&Os Daily weights Cardiology following Plan DVT ppx: Apixaban Code Status: Full Code Attestations Medical Necessity Statement*: Patient requires ongoing hospitalization for titration of cardiac medications du e to a-fib, electrolyte management, IV steroids, telemetry, pulmonary evaluation, stress testing, telemetry, and cardiology evaluation. Coding Level of Care Code Acute Code for Chg Fwd Diagnoses Atrial fibrillation with rapid ventricular response I48.91 Hypersensitivity pneumonitis J67.9 Hyperlipidemia E78.2 Hyperlipidemia type: mixed hyperlipidemia Hypertension I15.2 Hypertension type: secondary to endocrine disorders Type 2 diabetes mellitus E11.9; Z79.4 Diabetes mellitus intermediate designer insulin use: with fdc use Diabetes mellitus complication status: without complication Weakness R53.1 Acute diastolic heart failure I50.31
[2022-12-07 11:15] LABS: Glucose Point of Care 208 mg/dL (70-110)
[2022-12-07] MEDS: insulin lispro 100 unit/1 mL SUBCUT ×2 (12:12→21:44)
[2022-12-07 16:43] LABS: Glucose Point of Care 112 mg/dL (70-110)
--- NOTE | 2022-12-07 17:07 | PC.NURSE ---
Patient has been refusing protonix but daughter has home nexium at bedside.
[2022-12-07 21:02] LABS: Glucose Point of Care 215 mg/dL (70-110)
[2022-12-07] MEDS: insulin glargine 100 units/1 mL 62 UNIT SUBCUT (21:44)
[2022-12-08] VITALS (56 sets, daily range): BP systolic 84–160; BP diastolic 49–87; PULSE 63–102; RESP 18–25; TEMP 36.2–37.1; O2SAT 91–95
[2022-12-08 04:20] LABS: Albumin Level 3.3 g/dL (3.5-5.2); Anion Gap 15.5 (5-19); Blood Urea Nitrogen 39 mg/dL (8-23); Calcium 9.4 mg/dL (8.5-10.5); Carbon Dioxide 27 mmol/L (22-29); Chloride 100 mmol/L (98-107); Glucose 82 mg/dL (65-115); Phosphorus 3.7 mg/dL (2.5-4.5); Potassium 4.5 mmol/L (3.5-5.1); Sodium 138 mmol/L (136-145)
[2022-12-08 06:32] LABS: Glucose Point of Care 83 mg/dL (70-110)
[2022-12-08] MEDS: regadenoson 0.4 Mg/5 ml Syringe IVP (07:22)
[2022-12-08] MEDS: aminophylline 25 mg/mL SDV 10 mL IVP (07:34)
[2022-12-08] MEDS: ascorbic acid 500 mg Tablet 1000 MG PO (08:29)
[2022-12-08] MEDS: losartan 50 mg Tablet 75 MG PO (08:30)
[2022-12-08] MEDS: clopidogrel 75 mg Tablet PO (08:30)
[2022-12-08] MEDS: metoprolol tartrate 50 mg Tablet 100 MG PO ×2 (08:30→20:28)
[2022-12-08] MEDS: apixaban 5 mg Tablet PO ×2 (08:31→20:28)
[2022-12-08] MEDS: digoxin 125 mcg Tablet PO (08:31)
[2022-12-08] MEDS: pantoprazole DR 40 mg Tablet PO ×2 (08:31→18:38)
[2022-12-08] MEDS: ipratropium 0.5 mg/2.5 mL Neb INHALATION ×2 (09:01→19:09)
[2022-12-08] MEDS: budesonide 0.5 mg/2 mL Neb INHALATION ×2 (09:01→19:09)
--- NOTE | 2022-12-08 10:47 | PC.SOCIAL ---
IMM Updated Updated pt & family on IMM. No questions voiced. Provided pt a copy. Initialed, dated, & timed copy in chart.
[2022-12-08 10:52] LABS: Iron 129 ug/dL (37-145); Percent Saturation 49.6 % (20-50); Total Iron Binding Capacity 260 mcg/dl; Unsaturated Iron Binding 131 ug/dL (112-347)
[2022-12-08 11:08] LABS: Vitamin B12 300 pg/mL (232-1245)
[2022-12-08 11:50] LABS: Glucose Point of Care 109 mg/dL (70-110)
--- NOTE | 2022-12-08 13:55 | NMCV_ITS ---
NM sara perf SPECT r/s* [id number] Eloisa Campbell Age: 87 Gender: F : 1935 Exam Date: 12/08/2022 06:40 Ordering Phys: Flo Wong MD ([email or web address]) Technologist: DANN Alvarado Exam Location: [facility] Indications: CHEST PAIN STRESS TEST [facility] IMAGE PROTOCOL Rest/Stress 1 Lexiscan Day Radiopharmaceutical Dose (mCi) Administration Site Administered by Rest: Tc-99m 10.8 IV DANN Aleman Sestamibi Stress:Tc-99m 32.9 IV DANN Aleman Sestamibi Rest: 08-Dec-2022 60 Discovery 630 Stress: 08-Dec-2022 30 Discovery 630 0.4mg Lexiscan. Supine position only as patient was unable to lay prone. SPECT RESULTS Technical Quality: Excellent Raw Data Analysis: Normal Image Corrections: No attenuation or motion correction applied Summed Stress Score: 2 Summed Rest Score: 8 Summed Difference Score: 0 PERFUSION FINDINGS Small area of moderately decreased tracer uptake was noted in the mid inferolateral region. No significant reversibility was noted in this region FUNCTIONAL RESULTS (calculated via Gated SPECT) Stress Image LV EF (%): 64 Stress EDV (mL):56 TID: 0.95 Stress ESV (mL):20 FUNCTIONAL FINDINGS: Segmental wall motion analysis revealing no gross wall motion abnormalities. IMPRESSIONS 1. Myocardial perfusion imaging revealing small area of persistent decreased tracer uptake in the mid inferolateral region suggesting myocardial scarring versus attenuation artifact . 2. Normal LV ejection fraction of 64%. 3. LV wall motion analysis revealing no gross wall motion abnormalities. 4. Normal LV volume Low probability for coronary ischemia, based on the above findings Dr Flo Wong MD FACC (Electronically Signed) Final Date: 08 Dec 2022 19:41 S
[2022-12-08 16:56] LABS: Glucose Point of Care 80 mg/dL (70-110)
--- NOTE | 2022-12-08 17:27 | P.PN_ITS ---
Subjective Subjective: Hospital course, labs appreciated. Today morning seen with patient's daughters at bedside. Patient is on room air. Saturating more than 90%. Heart rate better controlled. Continues to remain in A-fib. States she feels fairly weak and has not been walking much. Complaining of mild dizziness with standing up. Blood pressure so far stable though no orthostatics present. Labs appreciated. No urine output documented. Post Lexiscan stress test today. Vitals/I&O/Wt Last Vital Signs Temp 97.6 F 12/08/22 08:00 Pulse 73 12/08/22 14:02 Resp 18 12/08/22 14:02 BP 126/81 12/08/22 16:52 Pulse Ox 94 12/08/22 16:52 O2 Del Method Room Air 12/08/22 14:02 O2 Flow Rate 2 12/07/22 02:47 12/08/22 12/08/22 12/08/22 06:59 14:59 22:59 Intake Total 480 / 1440 960 / 960 Balance 480 / 1440 960 / 960 Physical Exam Narrative: General: No acute distress, AO x3, frail, chronically Sick appearing HEENT: PERRLA, pupils bilaterally equal and reactive Chest: Normal vesicular breath sounds, no added sounds, equal good air entry bilaterally CVS: S1-S2 irregularly irregular, soft pansystolic murmur present at apex radiating to axilla, 2/6, no tachycardia, no gallops, no rubs Abdomen: Soft, nontender, no organomegaly, bowel sounds present Neuro: No focal deficits, no facial deformity, AO x3, power 3/5 in all limbs Data 12/07/22 05:32 12/08/22 03:29 A&P Assessment and plan (1) Atrial fibrillation with rapid ventricular response: Rate controlled. Continue with digoxin and metoprolol at current dose. Appreciate cardiology recommendations. Continue with Eliquis 5 mg twice daily. Telemetry monitoring. Echocardiogram done this admission shows an EF 55% with mild pulmonary hypertension, RVSP of 46 mmHg, moderate to severe MR. (2) Atherosclerotic heart disease of [place] coronary artery without angina pectoris: Post cardiac stress test. We will follow-up results. Check A1c, lipid panel. Continue with Plavix, statin, beta-norberto. No active chest pain. Qualifiers: [place] vs. transplanted heart: [place] heart Qualified Code(s): I25.10 - Atherosclerotic heart disease of [place] coronary artery without angina pectoris (3) Hypersensitivity pneumonitis: Seems to be resolving or resolved. Hypoxia on admission most likely secondary to congestive heart failure rather than its hypersensitive pneumonitis. Wean Solu-Medrol 40 mg daily. Will wean to oral steroids aggressively. Patient would most likely need a prolonged slow taper with pulmonology consultation. We will plan to discharge patient on inhalation treatment. Oxygen supplementation keeping saturation over 88%. (4) Obstructive sleep apnea: (5) Type 2 diabetes mellitus: Insulin sliding scale. Carb consistent diet. Appreciate A1c and lipid panel. Qualifiers: Diabetes mellitus half-way insulin use: with intermediate project manager use Diabetes mellitus complication status: without complication Qualified Code(s): E11.9 - Type 2 diabetes mellitus without complications; Z79.4 - intermediate manager (current) use of insulin (6) Hypertension: Goal blood pressure less than 140/90 mmHg. Mildly orthostatic positive. Hold off on diuretics for now. Continue with metoprolol. Decrease dose of losartan to 50 mg daily. Qualifiers: Hypertension type: secondary to endocrine disorders Qualified Code(s): I15.2 - Hypertension secondary to endocrine disorders (7) Hyperlipidemia: Qualifiers: Hyperlipidemia type: mixed hyperlipidemia Qualified Code(s): E78.2 - Mixed hyperlipidemia (8) Acute diastolic heart failure: Strict input output charting, daily weights. Euvolemic now. Most likely will discharge on low-dose Lasix. Fluid restriction. Plan Full code. Eliquis will suffice for DVT prophylaxis Protonix for PUD prophylaxis. Carb consistent diet. Discharge plan: Plan to discharge to home with home health versus SNF as per PT evaluation. We will continue to follow. Attestations Medical Necessity Statement*: Requires further hospitalization for management of hypoxia secondary to congestive heart failure in a patient with baseline hypersensitive pneumonitis, A-fib with RVR, by CAD is worked up and safe discharge planning is sought given physical deconditioning Coding Level of Care Code 89780 High MDM includes number and complexity of problems actively addressed during encounter, amount and/or complexity of data reviewed/ordered (Monitoring electrolytes and blood pressures) [ previous or external records, resulted lab(s)/test(s), ordered lab(s)/test(s), independent historian, independent test interpretation and other healthcare professional discussion] and described risk of complication, morbidity or mortality of management as documented Diagnoses Atrial fibrillation with rapid ventricular response I48.91 Atherosclerotic heart disease of [place] coronary artery without angina pectoris I25.10 [place] vs. transplanted heart: [place] heart Hypersensitivity pneumonitis J67.9 Obstructive sleep apnea G47.33 Type 2 diabetes mellitus E11.9; Z79.4 Diabetes mellitus half-way insulin use: with half-way use Diabetes mellitus complication status: without complication Hypertension I15.2 Hypertension type: secondary to endocrine disorders Hyperlipidemia E78.2 Hyperlipidemia type: mixed hyperlipidemia Acute diastolic heart failure I50.31
[2022-12-08] MEDS: levalbuterol 0.63 mg/3 mL Neb INHALATION (19:09)
--- NOTE | 2022-12-08 19:28 | P.PN_ITS ---
Subjective Subjective: -Patient seen lying on her bed comfortably -Currently she is on room air saturating 93% Her heart rate seems to be better controlled-she is receiving digoxin, metoprolol 100 Mg p.o. twice daily, -Other labs and imaging reviewed Medications: Reviewed: Yes Medication Review Details: Current Medications Acetaminophen (Acetaminophen 325 Mg Tablet) 650 mg PO Q6H PRN PRN Reason: Mild/Mod Pain Or Temp >/= 101 Last Admin: 12/04/22 05:40 Dose: 650 mg Apixaban (Apixaban 5 Mg Tablet) 5 mg PO BID@0900,2100 [facility] Last Admin: 12/09/22 09:27 Dose: 5 mg Ascorbic Acid (Ascorbic Acid 500 Mg Tablet) 1,000 mg PO DAILY [facility] Last Admin: 12/09/22 09:27 Dose: 1,000 mg Budesonide (Budesonide 0.5 Mg/2 Ml Neb) 0.5 mg INHALATION BID [facility] Last Admin: 12/09/22 08:09 Dose: 0.5 mg Clopidogrel Bisulfate (Clopidogrel 75 Mg Tablet) 75 mg PO DAILY [facility] Last Admin: 12/09/22 09:27 Dose: 75 mg Cyanocobalamin (Cyanocobalamin 1,000 Mcg Tablet) 500 mcg PO DAILY [facility] Last Admin: 12/09/22 10:02 Dose: 500 mcg Dextrose (Dextrose 50% Syringe 50 Ml) 50 ml IVP PRN PRN; Protocol PRN Reason: hypoglycemia protocol Dextrose (Dextrose 50% Syringe 50 Ml) 25 ml IVP ONCE PRN; Protocol PRN Reason: hypoglycemia protocol Digoxin (Digoxin 125 Mcg Tablet) 125 mcg PO DAILY [facility] Last Admin: 12/09/22 09:25 Dose: 125 mcg Glucagon (Glucagon 1 Mg/Ml Inj 1 Ml) 1 mg IM ONCE PRN; Protocol PRN Reason: Adult Acute Hypoglycemia Prot. Dextrose (D5w) 500 mls @ 100 mls/hr IV ONCE PRN; Protocol PRN Reason: Adult Acute Hypoglycemia Prot Insulin Glargine (Insulin Glargine 100 Units/1 Ml) 62 unit SUBCUT BEDTIME [facility] Last Admin: 12/08/22 20:28 Dose: 62 unit Insulin Human Lispro (Insulin Lispro 100 Unit/1 Ml) 0 unit SUBCUT WM&BEDTIME [facility]; Protocol Last Admin: 12/09/22 17:31 Dose: 2 unit Ipratropium [place] (Ipratropium 0.5 Mg/2.5 Ml Neb) 0.5 mg INHALATION Q6H [facility] Last Admin: 12/09/22 14:20 Dose: 0.5 mg Levalbuterol HCl (Levalbuterol 0.63 Mg/3 Ml Neb) 0.63 mg INHALATION QID.RESPIRATORY PRN PRN Reason: SHORTNESS OF BREATH Last Admin: 12/09/22 08:08 Dose: 0.63 mg Methylprednisolone Sodium Succinate (Methylprednisolone Sod Succ 125 Mg/2 Ml Inj) 40 mg IVP DAILY [facility] Last Admin: 12/09/22 14:52 Dose: 40 mg Metoprolol Tartrate (Metoprolol Tartrate 50 Mg Tablet) 100 mg PO BID@0900,2100 [facility] Last Admin: 12/09/22 09:27 Dose: 100 mg Ondansetron HCl (Ondansetron 2 Mg/Ml Sdv 2 Ml) 4 mg IVP Q8H PRN PRN Reason: vomiting, or N/V if npo Last Admin: 12/09/22 07:30 Dose: 4 mg Ondansetron HCl (Ondansetron 2 Mg/Ml Sdv 2 Ml) 4 mg IVP Q2M PRN PRN Reason: NAUSEA Pantoprazole Sodium (Pantoprazole Dr 40 Mg Tablet) 40 mg PO BID [facility] Last Admin: 12/09/22 17:31 Dose: 40 mg Vitals/I&O/Wt Last Vital Signs Temp 97.9 F 12/08/22 19:13 Pulse 84 12/08/22 19:14 Resp 25 H 12/08/22 19:13 BP 137/86 12/08/22 19:13 Pulse Ox 93 12/08/22 19:13 O2 Del Method Room Air 12/08/22 19:13 O2 Flow Rate 2 12/07/22 02:47 12/08/22 12/08/22 12/08/22 06:59 14:59 22:59 Intake Total 480 / 1440 960 / 960 225 / 1185 Output Total 275 / 275 Balance 480 / 1440 960 / 960 -50 / 910 Physical Exam Narrative: General: alert, NAD HEENT: conj clear, EOMI, PERRL, mmm, Neck: supple, no meningismus Heme: no cervical LAP Respiratory: Inspection: No visible deformity of the chest wall Palpation: Trachea is mildly deviated to the right, bilateral symmetric expansion Percussion: Bilateral tympanic percussion note both anterior and posteriorly Auscultation: Bibasilar inspiratory crepitations Cardiovascular: rrr, nl s1s2, no mrg Abdomen: soft, nt, nd, no r/g, bs+ Extremities: pulses +, 1+ pitting pedal edema, no c/c : no CVA tenderness Skin: intact, no rash MSK: no back or neck pain Neurologic: grossly intact Data 12/09/22 03:31 12/09/22 03:31 Other Labs: Radiology Impressions Chest X-Ray 12/03/22 03:11 IMPRESSION: 1. Heart is enlarged but stable when compared to the prior exam. 2. Interval worsening of bilateral pleuroparenchymal disease. Chest CT 12/03/22 06:13 IMPRESSION: 1. New bilateral groundglass airspace infiltrates more prominent in the perihilar regions. Recommend correlation for pneumonia versus pulmonary edema. Small RIGHT and trace LEFT pleural fluid. 2. No focal consolidation. 3. Marked cardiomegaly. 4. Prominent peribronchial lymph nodes slightly progressed compared to previous likely reactive. 5. Cholecystectomy clips. 6. Small moderate esophageal hiatal hernia. Laboratory Results WBC 13.5 10^3/uL (4.0-10.0) H 12/09/22 03:31 RBC 5.62 10^6/uL (4.1-5.3) H 12/09/22 03:31 Hgb 16.2 g/dL (11.5-15.3) H 12/09/22 03:31 Hct 50.7 % (37.0-47.0) H 12/09/22 03:31 MCV 90.2 fl (81-99) 12/09/22 03:31 MCH 28.8 pg (28.0-34.0) 12/09/22 03:31 MCHC 32.0 g/dL (30.0-36.0) 12/09/22 03:31 RDW 12.8 % (12.1-15.1) 12/09/22 03:31 Plt Count 257 10^3/cmm (130-400) 12/09/22 03:31 MPV 10.3 fL (7.4-10.4) 12/09/22 03:31 Neut % (Auto) 65.7 % 12/09/22 03:31 Lymph % (Auto) 24.8 % 12/09/22 03:31 [place] % (Auto) 8.1 % 12/09/22 03:31 Eos % (Auto) 0.6 % 12/09/22 03:31 Baso % (Auto) 0.1 % 12/09/22 03:31 Neut # (Auto) 8.89 10^3/uL (1.8-7.7) H 12/09/22 03:31 Lymph # (Auto) 3.4 10^3/uL (0.8-4.8) 12/09/22 03:31 [place] # (Auto) 1.1 10^3/uL (0.2-0.9) H 12/09/22 03:31 Eos # (Auto) 0.1 10^3/uL (0.0-0.8) 12/09/22 03:31 Baso # (Auto) 0.0 10^3/uL (0.0-0.1) 12/09/22 03:31 Nucleated RBC % (auto) 0 % 12/09/22 03:31 Nucleated RBCs # 0.0 /100WBC 12/09/22 03:31 PT 20.90 SECONDS (12.1-14.9) H 12/03/22 03:29 INR 1.73 (0.8-1.2) H 12/03/22 03:29 D-Dimer 0.42 ug/mIFEU (0-0.59) 12/03/22 03:29 Specimen Type Arterial 12/03/22 07:37 Sample Site Radial, left 12/03/22 07:37 ABG pH 7.45 (7.35-7.45) 12/03/22 07:37 ABG pCO2 40.6 mmHg (35-45) 12/03/22 07:37 ABG pO2 80.9 mmHg (80.0-100.0) 12/03/22 07:37 ABG HCO3 28.4 mmol/L (22-26) H 12/03/22 07:37 ABG O2 Saturation 97.3 12/03/22 07:37 ABG Base Excess 4.1 mmol/L (-2.0-2.0) H 12/03/22 07:37 [place] Test Pos 12/03/22 07:37 A-a O2 Gradient 8.9 mmHg (5-10) 12/03/22 07:37 Hematocrit 43.9 % (37-47) 12/03/22 07:37 Hgb O2 Saturation 95.2 % (95-100) 12/03/22 07:37 Carboxyhemoglobin 1.6 %THgb (0.4-20.1) 12/03/22 07:37 Methemoglobin 0.6 % (0.4-1.5) 12/03/22 07:37 Total Hemoglobin 14.3 g/dL (12-16) 12/03/22 07:37 Sodium 141.0 mmol/L (131-143) 12/03/22 07:37 Potassium 4.1 mmol/L (3.5-5.0) 12/03/22 07:37 Glucose 218.0 mg/dL (70-115) H 12/03/22 07:37 Ionized Calcium 1.2 mmol/L (1.1-1.4) 12/03/22 07:37 O2 Delivery Device Nc 12/03/22 07:37 O2 Liters/Min 2.0 % 12/03/22 07:37 FiO2 28.0 % 12/03/22 07:37 Racing Mechanic ID [email or web address] 12/03/22 07:37 Sodium 139 mmol/L (136-145) 12/09/22 03:31 Potassium 3.7 mmol/L (3.5-5.1) 12/09/22 03:31 Chloride 102 mmol/L (98-107) 12/09/22 03:31 Carbon Dioxide 28 mmol/L (22-29) 12/09/22 03:31 Anion Gap 12.7 (5-19) 12/09/22 03:31 BUN 42 mg/dL (8-23) H 12/09/22 03:31 Creatinine 0.7 mg/dL (0.5-0.9) 12/09/22 03:31 GFR Calculation Not Reportable 12/09/22 03:31 Glucose 75 mg/dL (65-115) 12/09/22 03:31 POC Glucose 197 mg/dL (70-110) H 12/09/22 21:18 Estimat Average Glucose 126 12/03/22 03:29 Hemoglobin A1c 6.0 % (4.0-6.0) 12/03/22 03:29 Calculated Osmolality 297 mOsm/kg (285-295) H 12/09/22 03:31 Calcium 8.7 mg/dL (8.5-10.5) 12/09/22 03:31 Phosphorus 3.7 mg/dL (2.5-4.5) 12/08/22 03:29 Magnesium 2.1 mg/dL (1.7-2.3) 12/07/22 05:32 Iron 129 ug/dL (37-145) 12/08/22 03:29 TIBC 260 mcg/dl 12/08/22 03:29 % Saturation 49.6 % (20-50) 12/08/22 03:29 Unsat Iron Binding 131 ug/dL (112-347) 12/08/22 03:29 Total Bilirubin 0.6 mg/dL (0.15-1.2) 12/09/22 03:31 AST 24 U/L (0-32) 12/09/22 03:31 ALT 26 U/L (0-33) 12/09/22 03:31 Alkaline Phosphatase 70 U/L (35-105) 12/09/22 03:31 Troponin T Baseline 12 ng/L (0-10) H 12/03/22 03:29 Troponin T 120 Minute 9.76 ng/L (0-10) 12/03/22 05:03 Delta Troponin T -2.24 ABS# (0-10) L 12/03/22 05:03 Troponin T Hi Sens 6Hr 9.04 ng/L (0-10) 12/03/22 09:20 Troponin T Hi Sens 6Hr Delta -2.96 ng/L (0-12) L 12/03/22 09:20 NT-Pro-B Natriuret Pep 954 pg/mL (0-450) H 12/03/22 03:29 Total Protein 5.7 g/dL (6.6-8.7) L 12/09/22 03:31 Albumin 3.1 g/dL (3.5-5.2) L 12/09/22 03:31 Globulin 2.6 g/dL (1.3-4.6) 12/09/22 03:31 Triglycerides 128 mg/dL (0-150) 12/09/22 03:31 Cholesterol 145 mg/dL (0-200) 12/09/22 03:31 LDL Cholesterol, Calc 64 mg/dL (50-129) 12/09/22 03:31 Total VLDL Cholesterol 26 mg/dL (0-30) 12/09/22 03:31 HDL Cholesterol 55 mg/dL (60-100) L 12/09/22 03:31 Cholesterol/HDL Ratio 2.64 mg/dL (0.0-4.40) 12/09/22 03:31 Vitamin B12 300 pg/mL (232-1245) 12/08/22 03:29 Folate 13.1 ng/mL (4.8-37.3) 12/09/22 03:31 Procalcitonin 0.04 ng/mL (0-0.5) 12/03/22 03:29 TSH 2.09 uIU/mL (0.27-4.20) 12/03/22 03:29 A&P Assessment and plan (1) Hypoxia: Required transiently 3 L supplemental oxygen-possibly secondary to fluid overload due to A-fib RVR She was able to come off oxygen but today saturating > 90% on room air ABG showed PF ratio greater than 300 on [address] chest increased perihilar groundglass opacities-suggestive of pulmonary edema more likely than infection-recently she finished a 7-day course of levofloxacin given by PCP and her procalcitonin is low-I have less suspicion for infection Her BNP is elevated; She received Lasix and later held due to dizziness Currently heart rate is better controlled with metoprolol and digoxin. She is receiving Eliquis. Her myocardial perfusion scan did not show any evidence of ischemia based on perfusion scan. She is found to have severe orthostatic hypotension. And was started on gentle IV hydration (2) Atrial fibrillation with rapid ventricular response: Currently on metoprolol and digoxin she is on Eliquis as well. Heart rate appears to be well controlled on telemetry monitoring. 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 This was seen earliest about [address] scan that has progressed over the last 5 years.? The patient had also given history of moving into a new house around the same time.? Repeat CT chest 10/07/2022?showed moderate pulmonary fibrosis, similar to the prior study of 07/20/2020 without obvious change or progression. However her CTA today morning showed new bilateral groundglass airspace i nfiltrates more prominent in perihilar regions suggesting mostly pulmonary edema. There is small and trace left pleural effusion. No focal consolidation. Marked cardiomegaly. Prominent peribronchial lymph nodes slightly progressed likely reactive. Her BNP is elevated. Given her increased airspace opacities centrally-suspect fluid overload secondary to triggered event of A-fib RVR Currently her A-fib RVR is well controlled with metoprolol and digoxin and she is saturating 99% on room air She recently completed her antibiotics and it may not help given her low procalcitonin and no definite consolidation. Recommended to taper down her steroids as she does not have any significant wheeze and current exacerbation secondary to fluid overload rather than underlying interstitial lung disease exacerbation Attestations Medical Necessity Statement*: Anticipating next 24 to 48 hours once patient's orthostatic dizziness improves Time Spent in Patient Care: Greater than 35 minutes (>than 50% of time spent in counselling and/or direct pt care on unit) . Coding Level of Care Code 36503 Diagnoses Hypoxia R09.02 Atrial fibrillation with rapid ventricular response I48.91 Hypersensitivity pneumonitis J67.9 Time Spent (min) 33
[2022-12-08 19:41] LABS: Glucose Point of Care 100 mg/dL (70-110)
[2022-12-08] MEDS: insulin glargine 100 units/1 mL 62 UNIT SUBCUT (20:28)
--- NOTE | 2022-12-08 20:41 | PM.PN ---
Subjective Subjective: Patient had a Myocardial perfusion imaging today. She was found to have no evidence of ischemia based on the perfusion scan. She was found to have severe orthostatic hypotension, symptomatic. No chest pain, fever or chills. Telemetry shows atrial fibrillation with a controlled ventricular response rate. Medications: Medication Review Details: Current Medications Acetaminophen (Acetaminophen 325 Mg Tablet) 650 mg PO Q6H PRN PRN Reason: Mild/Mod Pain Or Temp >/= 101 Last Admin: 12/04/22 05:40 Dose: 650 mg Aminophylline (Aminophylline 25 Mg/Ml Sdv 10 Ml) 25 mg IVP Q2M PRN PRN Reason: see dose instructions Stop: 12/09/22 06:22 Last Admin: 12/08/22 07:34 Dose: 25 mg Apixaban (Apixaban 5 Mg Tablet) 5 mg PO BID@0900,2100 [facility] Last Admin: 12/08/22 20:28 Dose: 5 mg Ascorbic Acid (Ascorbic Acid 500 Mg Tablet) 1,000 mg PO DAILY [facility] Last Admin: 12/08/22 08:29 Dose: 1,000 mg Budesonide (Budesonide 0.5 Mg/2 Ml Neb) 0.5 mg INHALATION BID [facility] Last Admin: 12/08/22 19:09 Dose: 0.5 mg Clopidogrel Bisulfate (Clopidogrel 75 Mg Tablet) 75 mg PO DAILY [facility] Last Admin: 12/08/22 08:30 Dose: 75 mg Dextrose (Dextrose 50% Syringe 50 Ml) 50 ml IVP PRN PRN; Protocol PRN Reason: hypoglycemia protocol Dextrose (Dextrose 50% Syringe 50 Ml) 25 ml IVP ONCE PRN; Protocol PRN Reason: hypoglycemia protocol Digoxin (Digoxin 125 Mcg Tablet) 125 mcg PO DAILY [facility] Last Admin: 12/08/22 08:31 Dose: 125 mcg Glucagon (Glucagon 1 Mg/Ml Inj 1 Ml) 1 mg IM ONCE PRN; Protocol PRN Reason: Adult Acute Hypoglycemia Prot. Dextrose (D5w) 500 mls @ 100 mls/hr IV ONCE PRN; Protocol PRN Reason: Adult Acute Hypoglycemia Prot Insulin Glargine (Insulin Glargine 100 Units/1 Ml) 62 unit SUBCUT BEDTIME [facility] Last Admin: 12/08/22 20:28 Dose: 62 unit Insulin Human Lispro (Insulin Lispro 100 Unit/1 Ml) 0 unit SUBCUT WM&BEDTIME [facility]; Protocol Last Admin: 12/08/22 17:58 Dose: Not Given Ipratropium [place] (Ipratropium 0.5 Mg/2.5 Ml Neb) 0.5 mg INHALATION Q6H [facility] Last Admin: 12/08/22 19:09 Dose: 0.5 mg Levalbuterol HCl (Levalbuterol 0.63 Mg/3 Ml Neb) 0.63 mg INHALATION QID.RESPIRATORY PRN PRN Reason: SHORTNESS OF BREATH Last Admin: 12/08/22 19:09 Dose: 0.63 mg Losartan Potassium (Losartan 50 Mg Tablet) 50 mg PO DAILY [facility] Methylprednisolone Sodium Succinate (Methylprednisolone Sod Succ 125 Mg/2 Ml Inj) 40 mg IVP DAILY [facility] Last Admin: 12/08/22 09:59 Dose: 40 mg Metoprolol Tartrate (Metoprolol Tartrate 50 Mg Tablet) 100 mg PO BID@0900,2100 [facility] Last Admin: 12/08/22 20:28 Dose: 100 mg Nitroglycerin (Nitroglycerin 0.4 Mg Sublingual Tablet) 0.4 mg SUBLINGUAL Q5M PRN PRN Reason: CHEST PAIN Stop: 12/09/22 06:22 Ondansetron HCl (Ondansetron 2 Mg/Ml Sdv 2 Ml) 4 mg IVP Q8H PRN PRN Reason: vomiting, or N/V if npo Last Admin: 12/06/22 07:33 Dose: 4 mg Ondansetron HCl (Ondansetron 2 Mg/Ml Sdv 2 Ml) 4 mg IVP Q2M PRN PRN Reason: NAUSEA Pantoprazole Sodium (Pantoprazole Dr 40 Mg Tablet) 40 mg PO BID [facility] Last Admin: 12/08/22 18:38 Dose: 40 mg Vitals/I&O/Wt Last Vital Signs Temp 97.9 F 12/08/22 19:13 Pulse 84 12/08/22 19:14 Resp 25 H 12/08/22 19:13 BP 120/49 12/08/22 20:00 Pulse Ox 93 12/08/22 19:13 O2 Del Method Room Air 12/08/22 19:13 O2 Flow Rate 2 12/07/22 02:47 12/08/22 12/08/22 12/08/22 06:59 14:59 22:59 Intake Total 480 / 1440 960 / 960 225 / 1185 Output Total 275 / 275 Balance 480 / 1440 960 / 960 -50 / 910 Physical Exam Narrative: GENERAL: The patient is alert and oriented times three. Not in any acute distress. HEENT: No significant pallor, icterus or lymphadenopathy.Oral cavity: There are no mucous membrane lesions. NECK: Trachea appears to be central. No masses noted. No JVD or thyromegaly appreciated. RESPIRATORY: Chest is symmetrical. No intercostals muscle retraction or any accessory muscle activation. There is no chest wall tenderness. Breath sounds are heard bilaterally. No rales or rhonchi heard. No evidence of any consolidation. BREASTS: Deferred. HEART: The heart sounds are normal. No S3 or S4. Short systolic murmur in the lower sternal border. No diastolic murmurs. No pericardial rub ABDOMEN: No vessel pulsations or distention. No tenderness. No organomegaly appreciated. Bowel sounds are normally heard. : Deferred. RECTAL: Deferred. LYMPHATIC: No lymphadenopathy noted in the neck. EXTREMITIES: No edema or cyanosis. No clubbing. MUSCULOSKELETAL: No acute joint deformities or swelling SKIN: There are no significant rashes or ecchymosis NEUROPSYCHIATRIC: The patient is alert and oriented x3. Appears to be in a good mood. No tremors or rigidity noted. Data 12/07/22 05:32 12/08/22 03:29 Other Labs: Laboratory Last Values WBC 12.5 10^3/uL (4.0-10.0) H 12/07/22 05:32 RBC 5.51 10^6/uL (4.1-5.3) H 12/07/22 05:32 Hgb 15.8 g/dL (11.5-15.3) H 12/07/22 05:32 Hct 50.5 % (37.0-47.0) H 12/07/22 05:32 MCV 91.7 fl (81-99) 12/07/22 05:32 MCH 28.7 pg (28.0-34.0) 12/07/22 05:32 MCHC 31.3 g/dL (30.0-36.0) 12/07/22 05:32 RDW 12.7 % (12.1-15.1) 12/07/22 05:32 Plt Count 302 10^3/cmm (130-400) 12/07/22 05:32 MPV 10.3 fL (7.4-10.4) 12/07/22 05:32 Neut % (Auto) 85.8 % 12/07/22 05:32 Lymph % (Auto) 10.1 % 12/07/22 05:32 [place] % (Auto) 3.4 % 12/07/22 05:32 Eos % (Auto) 0.0 % 12/07/22 05:32 Baso % (Auto) 0.1 % 12/07/22 05:32 Neut # (Auto) 10.74 10^3/uL (1.8-7.7) H 12/07/22 05:32 Lymph # (Auto) 1.3 10^3/uL (0.8-4.8) 12/07/22 05:32 [place] # (Auto) 0.4 10^3/uL (0.2-0.9) 12/07/22 05:32 Eos # (Auto) 0.0 10^3/uL (0.0-0.8) 12/07/22 05:32 Baso # (Auto) 0.0 10^3/uL (0.0-0.1) 12/07/22 05:32 Nucleated RBC % (auto) 0 % 12/07/22 05:32 Nucleated RBCs # 0.0 /100WBC 12/07/22 05:32 PT 20.90 SECONDS (12.1-14.9) H 12/03/22 03:29 INR 1.73 (0.8-1.2) H 12/03/22 03:29 D-Dimer 0.42 ug/mIFEU (0-0.59) 12/03/22 03:29 Specimen Type Arterial 12/03/22 07:37 Sample Site Radial, left 12/03/22 07:37 ABG pH 7.45 (7.35-7.45) 12/03/22 07:37 ABG pCO2 40.6 mmHg (35-45) 12/03/22 07:37 ABG pO2 80.9 mmHg (80.0-100.0) 12/03/22 07:37 ABG HCO3 28.4 mmol/L (22-26) H 12/03/22 07:37 ABG O2 Saturation 97.3 12/03/22 07:37 ABG Base Excess 4.1 mmol/L (-2.0-2.0) H 12/03/22 07:37 [place] Test Pos 12/03/22 07:37 A-a O2 Gradient 8.9 mmHg (5-10) 12/03/22 07:37 Hematocrit 43.9 % (37-47) 12/03/22 07:37 Hgb O2 Saturation 95.2 % (95-100) 12/03/22 07:37 Carboxyhemoglobin 1.6 %THgb (0.4-20.1) 12/03/22 07:37 Methemoglobin 0.6 % (0.4-1.5) 12/03/22 07:37 Total Hemoglobin 14.3 g/dL (12-16) 12/03/22 07:37 Sodium 141.0 mmol/L (131-143) 12/03/22 07:37 Potassium 4.1 mmol/L (3.5-5.0) 12/03/22 07:37 Glucose 218.0 mg/dL (70-115) H 12/03/22 07:37 Ionized Calcium 1.2 mmol/L (1.1-1.4) 12/03/22 07:37 O2 Delivery Device Nc 12/03/22 07:37 O2 Liters/Min 2.0 % 12/03/22 07:37 FiO2 28.0 % 12/03/22 07:37 Weigher And Crusher ID [email or web address] 12/03/22 07:37 Sodium 138 mmol/L (136-145) 12/08/22 03:29 Potassium 4.5 mmol/L (3.5-5.1) 12/08/22 03:29 Chloride 100 mmol/L (98-107) 12/08/22 03:29 Carbon Dioxide 27 mmol/L (22-29) 12/08/22 03:29 Anion Gap 15.5 (5-19) 12/08/22 03:29 BUN 39 mg/dL (8-23) H 12/08/22 03:29 Creatinine 0.7 mg/dL (0.5-0.9) 12/08/22 03:29 GFR Calculation Not Reportable 12/08/22 03:29 Glucose 82 mg/dL (65-115) 12/08/22 03:29 POC Glucose 100 mg/dL (70-110) 12/08/22 17:28 Estimat Average Glucose 126 12/03/22 03:29 Hemoglobin A1c 6.0 % (4.0-6.0) 12/03/22 03:29 Calculated Osmolality 301 mOsm/kg (285-295) H 12/05/22 02:24 Calcium 9.4 mg/dL (8.5-10.5) 12/08/22 03:29 Phosphorus 3.7 mg/dL (2.5-4.5) 12/08/22 03:29 Magnesium 2.1 mg/dL (1.7-2.3) 12/07/22 05:32 Iron 129 ug/dL (37-145) 12/08/22 03:29 TIBC 260 mcg/dl 12/08/22 03:29 % Saturation 49.6 % (20-50) 12/08/22 03:29 Unsat Iron Binding 131 ug/dL (112-347) 12/08/22 03:29 Total Bilirubin 0.8 mg/dL (0.15-1.2) 12/03/22 03:29 AST 20 U/L (0-32) 12/03/22 03:29 ALT 24 U/L (0-33) 12/03/22 03:29 Alkaline Phosphatase 74 U/L (35-105) 12/03/22 03:29 Troponin T Baseline 12 ng/L (0-10) H 12/03/22 03:29 Troponin T 120 Minute 9.76 ng/L (0-10) 12/03/22 05:03 Delta Troponin T -2.24 ABS# (0-10) L 12/03/22 05:03 Troponin T Hi Sens 6Hr 9.04 ng/L (0-10) 12/03/22 09:20 Troponin T Hi Sens 6Hr Delta -2.96 ng/L (0-12) L 12/03/22 09:20 NT-Pro-B Natriuret Pep 954 pg/mL (0-450) H 12/03/22 03:29 Total Protein 6.5 g/dL (6.6-8.7) L 12/03/22 03:29 Albumin 3.3 g/dL (3.5-5.2) L 12/08/22 03:29 Globulin 2.6 g/dL (1.3-4.6) 12/03/22 03:29 Vitamin B12 300 pg/mL (232-1245) 12/08/22 03:29 Procalcitonin 0.04 ng/mL (0-0.5) 12/03/22 03:29 TSH 2.09 uIU/mL (0.27-4.20) 12/03/22 03:29 A&P Assessment and plan (1) Orthostatic hypotension: Careful IV hydration would be appropriate. May continue on her current measures. (2) Atrial fibrillation with rapid ventricular response: May continue the current dose of medications. (3) Upper respiratory infection: Patient is remaining afebrile. Clinically seems to be improved. (4) Acute diastolic heart failure: May continue on the current medications. (5) Hypertension: Blood sugar seems to be fairly under control. May continue on the current antihypertensive medications. Qualifiers: Hypertension type: secondary to endocrine disorders Qualified Code(s): I15.2 - Hypertension secondary to endocrine disorders (6) Hyperlipidemia: May continue on the current medications. Qualifiers: Hyperlipidemia type: mixed hyperlipidemia Qualified Code(s): E78.2 - Mixed hyperlipidemia (7) Obstructive sleep apnea: Patient refused the CPAP. 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 At this point, she may require any further investigations. Qualifiers: [place] vs. transplanted heart: [place] heart Qualified Code(s): I25.10 - Atherosclerotic heart disease of [place] coronary artery without angina pectoris Plan If the IV hydration does not help the orthostatic hypotension, may need to consider other treatment measures. Attestations Medical Necessity Statement*: Disposition as per the primary Coding Level of Care Code 47852 Diagnoses Orthostatic hypotension I95.1 Atrial fibrillation with rapid ventricular response I48.91 Upper respiratory infection J06.9 Acute diastolic heart failure I50.31 Hypertension I15.2 Hypertension type: secondary to endocrine disorders Hyperlipidemia E78.2 Hyperlipidemia type: mixed hyperlipidemia Obstructive sleep apnea G47.33 Atherosclerotic heart disease of [place] coronary artery without angina pectoris I25.10 [place] vs. transplanted heart: [place] heart
[2022-12-08 21:24] LABS: Glucose Point of Care 107 mg/dL (70-110)
[2022-12-08] MEDS: sodium chloride 0.9% 1,000 ML 75 ML IV (22:24)
[2022-12-09] VITALS (13 sets, daily range): BP systolic 125–157; BP diastolic 71–119; PULSE 71–113; RESP 16–24; TEMP 36.4–36.7; O2SAT 91–99
[2022-12-09 04:06] LABS: Basophils % 0.1 %; Eosinophils # 0.1 10^3/uL (0.0-0.8); Eosinophils % 0.6 %; Hematocrit 50.7 % (37.0-47.0); Hemoglobin 16.2 g/dL (11.5-15.3); Lymphocytes # 3.4 10^3/uL (0.8-4.8); Lymphocytes % 24.8 %; Mean Corpuscular Hemoglobin 28.8 pg (28.0-34.0); Mean Corpuscular Volume 90.2 fl (81-99); Mean Platelet Volume 10.3 fL (7.4-10.4); Monocytes # 1.1 10^3/uL (0.2-0.9); Monocytes % 8.1 %; Neutrophils # 8.89 10^3/uL (1.8-7.7); Neutrophils % 65.7 %; Nucleated Red Blood Cells % 0 %; Platelet Count 257 10^3/cmm (130-400); Red Blood Count 5.62 10^6/uL (4.1-5.3); Red Cell Distribution Width 12.8 % (12.1-15.1); White Blood Count 13.5 10^3/uL (4.0-10.0)
[2022-12-09 04:28] LABS: Alanine Aminotransferase 26 U/L (0-33); Albumin Level 3.1 g/dL (3.5-5.2); Alkaline Phosphatase 70 U/L (35-105); Anion Gap 12.7 (5-19); Aspartate Amino Transferase 24 U/L (0-32); Blood Urea Nitrogen 42 mg/dL (8-23); Calcium 8.7 mg/dL (8.5-10.5); Carbon Dioxide 28 mmol/L (22-29); Chloride 102 mmol/L (98-107); Chol HDL Ratio 2.64 mg/dL (0.0-4.40); Cholesterol 145 mg/dL (0-200); Globulin 2.6 g/dL (1.3-4.6); Glucose 75 mg/dL (65-115); HDL Cholesterol 55 mg/dL (60-100); LDL Cholesterol Calculated 64 mg/dL (50-129); Osmolality Calculated 297 mOsm/kg (285-295); Potassium 3.7 mmol/L (3.5-5.1); Sodium 139 mmol/L (136-145); Total Bilirubin 0.6 mg/dL (0.15-1.2); Total Protein 5.7 g/dL (6.6-8.7); Triglycerides 128 mg/dL (0-150); VLDL Cholestrol Calculation 26 mg/dL (0-30)
[2022-12-09 04:40] LABS: Folate Level 13.1 ng/mL (4.8-37.3)
[2022-12-09 05:32] LABS: Glucose Point of Care 52 mg/dL (70-110)
[2022-12-09 06:50] LABS: Glucose Point of Care 126 mg/dL (70-110)
[2022-12-09] MEDS: ondansetron 2 mg/ML SDV 2 mL 4 MG IVP (07:30)
[2022-12-09] MEDS: levalbuterol 0.63 mg/3 mL Neb INHALATION ×2 (08:08→20:56)
[2022-12-09] MEDS: budesonide 0.5 mg/2 mL Neb INHALATION ×2 (08:09→20:56)
[2022-12-09] MEDS: ipratropium 0.5 mg/2.5 mL Neb INHALATION ×3 (08:09→20:56)
[2022-12-09] MEDS: digoxin 125 mcg Tablet PO (09:25)
[2022-12-09] MEDS: apixaban 5 mg Tablet PO ×2 (09:27→20:03)
[2022-12-09] MEDS: ascorbic acid 500 mg Tablet 1000 MG PO (09:27)
[2022-12-09] MEDS: metoprolol tartrate 50 mg Tablet 100 MG PO ×2 (09:27→20:03)
[2022-12-09] MEDS: pantoprazole DR 40 mg Tablet PO ×2 (09:27→17:31)
[2022-12-09] MEDS: clopidogrel 75 mg Tablet PO (09:27)
[2022-12-09] MEDS: cyanocobalamin 1,000 mcg Tablet 500 MCG PO (10:02)
[2022-12-09] MEDS: cyanocobalamin 1,000 mcg/mL SDV 1000 MCG IM (10:02)
[2022-12-09 11:36] LABS: Glucose Point of Care 110 mg/dL (70-110)
--- NOTE | 2022-12-09 17:10 | P.PN_ITS ---
Subjective Subjective: Overnight no acute events. Yesterday during physical therapy patient was found to be orthostatic positive. Patient was symptomatic with dizziness. Overnight received gentle IV hydration at 75 cc/h. Continues to remain on room air. Family at bedside. Patient fairly weak and deconditioned. Sat in chair for an hour also yesterday. Heart rate remained stable. Vitals/I&O/Wt Last Vital Signs Temp 98.0 F 12/09/22 07:01 Pulse 88 12/09/22 16:00 Resp 18 12/09/22 16:00 BP 133/81 12/09/22 16:00 Pulse Ox 91 12/09/22 16:00 O2 Del Method Room Air 12/09/22 16:00 O2 Flow Rate 2 12/07/22 02:47 12/09/22 12/09/22 12/09/22 06:59 14:59 22:59 Intake Total 720 / 720 Output Total 101 / 476 Balance -101 / 709 720 / 720 Physical Exam Narrative: General: No acute distress, AO x3, frail, chronically Sick appearing HEENT: PERRLA, pupils bilaterally equal and reactive Chest: Normal vesicular breath sounds, no added sounds, equal good air entry bi laterally CVS: S1-S2 irregularly irregular, soft pansystolic murmur present at apex radiating to axilla, 2/6, no tachycardia, no gallops, no rubs Abdomen: Soft, nontender, no organomegaly, bowel sounds present Neuro: No focal deficits, no facial deformity, AO x3, power 3/5 in all limbs Data 12/09/22 03:31 12/09/22 03:31 A&P Assessment and plan (1) Atrial fibrillation with rapid ventricular response: Rate controlled. Continue with digoxin and metoprolol at current dose. Check digoxin levels in a.m. Appreciate cardiology recommendations. Continue with Eliquis 5 mg twice daily. Telemetry monitoring. Echocardiogram done this admission shows an EF 55% with mild pulmonary hypertension, RVSP of 46 mmHg, moderate to severe MR. (2) Atherosclerotic heart disease of [place] coronary artery without angina pectoris: Lexiscan stress test negative for acute ischemia. Appreciate A1c, lipid panel. Continue with Plavix, statin, beta-norberto. No active chest pain. Qualifiers: [place] vs. transplanted heart: [place] heart Qualified Code(s): I25.10 - Atherosclerotic heart disease of [place] coronary artery without angina pectoris (3) Hypersensitivity pneumonitis: Seems to be resolving or resolved. Hypoxia on admission most likely secondary to congestive heart failure rather than its hypersensitive pneumonitis. Switch to prednisone 40 mg oral daily from tomorrow. Patient would most likely need a prolonged slow taper with pulmonology consultation. We will plan to discharge patient on inhalation treatment. Oxygen supplementation keeping saturation over 88%. (4) Obstructive sleep apnea: (5) Type 2 diabetes mellitus: Insulin sliding scale. Switch to low-dose protocol. As insulin is coming down blood sugars are better controlled.. Carb consistent diet. Appreciate A1c and lipid panel. 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 Orthostatic positive. Received gentle IV hydration overnight. Hold off on any further hydration. Continue with current dose of metoprolol. Discontinue losartan. Continue check orthostatics every shift. Qualifiers: Hypertension type: secondary to endocrine disorders Qualified Code(s): I15.2 - Hypertension secondary to endocrine disorders (7) Hyperlipidemia: Qualifiers: Hyperlipidemia type: mixed hyperlipidemia Qualified Code(s): E78.2 - Mixed hyperlipidemia (8) Acute diastolic heart failure: Strict input output charting, daily weights. Euvolemic now. Most likely will discharge on low-dose Lasix. Fluid restriction. Plan Full code. Eliquis will suffice for DVT prophylaxis Protonix for PUD prophylaxis. Carb consistent diet. Discharge plan: Appreciate PT evaluation. Patient is significantly physically deconditioned. Patient has good family support around her. Plan to discharge home with possible home health and physical therapy. Care discussed in detail with patient's daughters at bedside. Multiple questions were answered. Attestations Medical Necessity Statement*: Requires further hospitalization for management of physical deconditioning, orthostatic hypotension in patient was admitted for atrial fibrillation with rapid ventricular response, congestive heart failure with baseline pulmonary fibrosis hypersensitivity pneumonitis Diagnoses Atrial fibrillation with rapid ventricular response I48.91 Atherosclerotic heart disease of [place] coronary artery without angina pectoris I25.10 [place] vs. transplanted heart: [place] heart Hypersensitivity pneumonitis J67.9 Obstructive sleep apnea G47.33 Type 2 diabetes mellitus E11.9; Z79.4 Diabetes mellitus complication status: without complication Diabetes mellitus assisted insulin use: with assisted use Hypertension I15.2 Hypertension type: secondary to endocrine disorders Hyperlipidemia E78.2 Hyperlipidemia type: mixed hyperlipidemia Acute diastolic heart failure I50.31
[2022-12-09 17:13] LABS: Glucose Point of Care 177 mg/dL (70-110)
[2022-12-09] MEDS: insulin lispro 100 unit/1 mL SUBCUT ×2 (17:31→21:27)
--- NOTE | 2022-12-09 17:43 | P.PN_ITS ---
Subjective Subjective: Patient does seems to be doing okay. No chest pain. No significant orthostatic hypotension today. No fever or chills. No cough. Medications: Medication Review Details: Current Medications Acetaminophen (Acetaminophen 325 Mg Tablet) 650 mg PO Q6H PRN PRN Reason: Mild/Mod Pain Or Temp >/= 101 Last Admin: 12/04/22 05:40 Dose: 650 mg Apixaban (Apixaban 5 Mg Tablet) 5 mg PO BID@0900,2100 [facility] Last Admin: 12/09/22 09:27 Dose: 5 mg Ascorbic Acid (Ascorbic Acid 500 Mg Tablet) 1,000 mg PO DAILY [facility] Last Admin: 12/09/22 09:27 Dose: 1,000 mg Budesonide (Budesonide 0.5 Mg/2 Ml Neb) 0.5 mg INHALATION BID [facility] Last Admin: 12/09/22 08:09 Dose: 0.5 mg Clopidogrel Bisulfate (Clopidogrel 75 Mg Tablet) 75 mg PO DAILY [facility] Last Admin: 12/09/22 09:27 Dose: 75 mg Cyanocobalamin (Cyanocobalamin 1,000 Mcg Tablet) 500 mcg PO DAILY [facility] Last Admin: 12/09/22 10:02 Dose: 500 mcg Dextrose (Dextrose 50% Syringe 50 Ml) 50 ml IVP PRN PRN; Protocol PRN Reason: hypoglycemia protocol Dextrose (Dextrose 50% Syringe 50 Ml) 25 ml IVP ONCE PRN; Protocol PRN Reason: hypoglycemia protocol Digoxin (Digoxin 125 Mcg Tablet) 125 mcg PO DAILY [facility] Last Admin: 12/09/22 09:25 Dose: 125 mcg Glucagon (Glucagon 1 Mg/Ml Inj 1 Ml) 1 mg IM ONCE PRN; Protocol PRN Reason: Adult Acute Hypoglycemia Prot. Dextrose (D5w) 500 mls @ 100 mls/hr IV ONCE PRN; Protocol PRN Reason: Adult Acute Hypoglycemia Prot Insulin Glargine (Insulin Glargine 100 Units/1 Ml) 62 unit SUBCUT BEDTIME [facility] Last Admin: 12/08/22 20:28 Dose: 62 unit Insulin Human Lispro (Insulin Lispro 100 Unit/1 Ml) 0 unit SUBCUT WM&BEDTIME SC H; Protocol Last Admin: 12/09/22 17:31 Dose: 2 unit Ipratropium [place] (Ipratropium 0.5 Mg/2.5 Ml Neb) 0.5 mg INHALATION Q6H [facility] Last Admin: 12/09/22 14:20 Dose: 0.5 mg Levalbuterol HCl (Levalbuterol 0.63 Mg/3 Ml Neb) 0.63 mg INHALATION QID.RESPIRATORY PRN PRN Reason: SHORTNESS OF BREATH Last Admin: 12/09/22 08:08 Dose: 0.63 mg Methylprednisolone Sodium Succinate (Methylprednisolone Sod Succ 125 Mg/2 Ml Inj) 40 mg IVP DAILY [facility] Last Admin: 12/09/22 14:52 Dose: 40 mg Metoprolol Tartrate (Metoprolol Tartrate 50 Mg Tablet) 100 mg PO BID@0900,2100 [facility] Last Admin: 12/09/22 09:27 Dose: 100 mg Ondansetron HCl (Ondansetron 2 Mg/Ml Sdv 2 Ml) 4 mg IVP Q8H PRN PRN Reason: vomiting, or N/V if npo Last Admin: 12/09/22 07:30 Dose: 4 mg Ondansetron HCl (Ondansetron 2 Mg/Ml Sdv 2 Ml) 4 mg IVP Q2M PRN PRN Reason: NAUSEA Pantoprazole Sodium (Pantoprazole Dr 40 Mg Tablet) 40 mg PO BID [facility] Last Admin: 12/09/22 17:31 Dose: 40 mg Vitals/I&O/Wt Last Vital Signs Temp 98.0 F 12/09/22 07:01 Pulse 88 12/09/22 16:00 Resp 18 12/09/22 16:00 BP 133/81 12/09/22 16:00 Pulse Ox 91 12/09/22 16:00 O2 Del Method Room Air 12/09/22 16:00 O2 Flow Rate 2 12/07/22 02:47 12/09/22 12/09/22 12/09/22 06:59 14:59 22:59 Intake Total 720 / 720 Output Total 101 / 476 Balance -101 / 709 720 / 720 Physical Exam Narrative: GENERAL: The patient is alert and oriented times three. Not in any acute distress. HEENT: No significant pallor, icterus or lymphadenopathy.Oral cavity: There are no mucous membrane lesions. NECK: Trachea appears to be central. No masses noted. No JVD or thyromegaly appreciated. RESPIRATORY: Chest is symmetrical. No intercostals muscle retraction or any accessory muscle activation. There is no chest wall tenderness. Breath sounds are heard bilaterally. No rales or rhonchi heard. No evidence of any cons olidation. BREASTS: Deferred. HEART: The heart sounds are normal. No S3 or S4. Short systolic murmur in the mitral area.. No pericardial rub ABDOMEN: No vessel pulsations or distention. No tenderness. No organomegaly appreciated. Bowel sounds are normally heard. : Deferred. RECTAL: Deferred. LYMPHATIC: No lymphadenopathy noted in the neck. EXTREMITIES: No edema or cyanosis. No clubbing. MUSCULOSKELETAL: No acute joint deformities or swelling SKIN: There are no significant rashes or ecchymosis NEUROPSYCHIATRIC: The patient is alert and oriented x3. Appears to be in a good mood. No tremors or rigidity noted. Data 12/09/22 03:31 12/09/22 03:31 A&P Assessment and plan (1) Orthostatic hypotension: Seems to have improved after careful IV hydration (2) Atrial fibrillation with rapid ventricular response: May continue the current dose of medications. The heart rate seems to be under control at this time. We will go ahead and do a digoxin level (3) Upper respiratory infection: Patient is remaining afebrile. Clinically seems to be improved. (4) Acute diastolic heart failure: Currently seems to be compensated clinically. (5) Hypertension: Blood sugar seems to be fairly under control. May continue on the current antihypertensive medications. Qualifiers: Hypertension type: secondary to endocrine disorders Qualified Code(s): I15.2 - Hypertension secondary to endocrine disorders (6) Hyperlipidemia: May continue on the current medications. Qualifiers: Hyperlipidemia type: mixed hyperlipidemia Qualified Code(s): E78.2 - Mixed hyperlipidemia (7) Obstructive sleep apnea: Patient refused the CPAP. She is on oxygen (8) Atherosclerotic heart disease of [place] coronary artery without angina pectoris: The Myocardial perfusion imaging fluids were discussed with the patient. At this point, she may require any further investigations. Qualifiers: [place] vs. transplanted heart: [place] heart Qualified Code(s): I25.10 - Atherosclerotic heart disease of [place] coronary artery without angina pectoris Plan Fluid may be discontinued. Continue on current treatment measures. Attestations Medical Necessity Statement*: Disposition as per the primary Coding Level of Care Code 99319 Diagnoses Orthostatic hypotension I95.1 Atrial fibrillation with rapid ventricular response I48.91 Upper respiratory infection J06.9 Acute diastolic heart failure I50.31 Hypertension I15.2 Hypertension type: secondary to endocrine disorders Hyperlipidemia E78.2 Hyperlipidemia type: mixed hyperlipidemia Obstructive sleep apnea G47.33 Atherosclerotic heart disease of [place] coronary artery without angina pectoris I25.10 [place] vs. transplanted heart: [place] heart
--- NOTE | 2022-12-09 18:39 | ECG_ITS ---
[facility] Test Date: 2022-12-09 Pat Name: Eloisa Campbell Department: Room: 101 Gender: Female Cath Lab Tech: : [id number] Requested By: Flo Wong Order Number: [id number] Bronson MD: Haile Hansen M.D. Measurements Intervals Teller Rate: 94 P: 0 WV: 0 QRS: -28 QRSD: 87 T: -32 QT: 312 QTc: 391 Interpretive Statements ATRIAL FIBRILLATION BORDERLINE LEFT AXIS DEVIATION [QRS AXIS < -20] NONSPECIFIC T-WAVE ABNORMALITY ABNORMAL RHYTHM ECG Compared to ECG 12/03/2022 09:44:21 T-wave abnormality now present Myocardial infarct finding no longer present Electronically Signed On 12-10-2022 14:21:13 CDT by Haile Hansen M.D. [id number]
[2022-12-09 21:23] LABS: Glucose Point of Care 197 mg/dL (70-110)
[2022-12-09] MEDS: insulin glargine 100 units/1 mL 62 UNIT SUBCUT (21:27)
--- NOTE | 2022-12-09 21:34 | PM.PN ---
Subjective Subjective: -No significant change -Patient was sitting out of bed to chair-denied any complaints and requested to be discharged home -Orthostasis improved-IV fluids discontinued -Will need bedside physical therapy -Other labs and imaging reviewed Medications: Reviewed: Yes Medication Review Details: Current Medications Acetaminophen (Acetaminophen 325 Mg Tablet) 650 mg PO Q6H PRN PRN Reason: Mild/Mod Pain Or Temp >/= 101 Last Admin: 12/04/22 05:40 Dose: 650 mg Apixaban (Apixaban 5 Mg Tablet) 5 mg PO BID@0900,2100 [facility] Last Admin: 12/09/22 09:27 Dose: 5 mg Ascorbic Acid (Ascorbic Acid 500 Mg Tablet) 1,000 mg PO DAILY [facility] Last Admin: 12/09/22 09:27 Dose: 1,000 mg Budesonide (Budesonide 0.5 Mg/2 Ml Neb) 0.5 mg INHALATION BID [facility] Last Admin: 12/09/22 08:09 Dose: 0.5 mg Clopidogrel Bisulfate (Clopidogrel 75 Mg Tablet) 75 mg PO DAILY [facility] Last Admin: 12/09/22 09:27 Dose: 75 mg Cyanocobalamin (Cyanocobalamin 1,000 Mcg Tablet) 500 mcg PO DAILY [facility] Last Admin: 12/09/22 10:02 Dose: 500 mcg Dextrose (Dextrose 50% Syringe 50 Ml) 50 ml IVP PRN PRN; Protocol PRN Reason: hypoglycemia protocol Dextrose (Dextrose 50% Syringe 50 Ml) 25 ml IVP ONCE PRN; Protocol PRN Reason: hypoglycemia protocol Digoxin (Digoxin 125 Mcg Tablet) 125 mcg PO DAILY [facility] Last Admin: 12/09/22 09:25 Dose: 125 mcg Glucagon (Glucagon 1 Mg/Ml Inj 1 Ml) 1 mg IM ONCE PRN; Protocol PRN Reason: Adult Acute Hypoglycemia Prot. Dextrose (D5w) 500 mls @ 100 mls/hr IV ONCE PRN; Protocol PRN Reason: Adult Acute Hypoglycemia Prot Insulin Glargine (Insulin Glargine 100 Units/1 Ml) 62 unit SUBCUT BEDTIME [facility] Last Admin: 12/08/22 20:28 Dose: 62 unit Insulin Human Lispro (Insulin Lispro 100 Unit/1 Ml) 0 unit SUBCUT WM&BEDTIME [facility]; Protocol Last Admin: 12/09/22 17:31 Dose: 2 unit Ipratropium [place] (Ipratropium 0.5 Mg/2.5 Ml Neb) 0.5 mg INHALATION Q6H [facility] Last Admin: 12/09/22 14:20 Dose: 0.5 mg Levalbuterol HCl (Levalbuterol 0.63 Mg/3 Ml Neb) 0.63 mg INHALATION QID.RESPIRATORY PRN PRN Reason: SHORTNESS OF BREATH Last Admin: 12/09/22 08:08 Dose: 0.63 mg Methylprednisolone Sodium Succinate (Methylprednisolone Sod Succ 125 Mg/2 Ml Inj) 40 mg IVP DAILY [facility] Last Admin: 12/09/22 14:52 Dose: 40 mg Metoprolol Tartrate (Metoprolol Tartrate 50 Mg Tablet) 100 mg PO BID@0900,2100 [facility] Last Admin: 12/09/22 09:27 Dose: 100 mg Ondansetron HCl (Ondansetron 2 Mg/Ml Sdv 2 Ml) 4 mg IVP Q8H PRN PRN Reason: vomiting, or N/V if npo Last Admin: 12/09/22 07:30 Dose: 4 mg Ondansetron HCl (Ondansetron 2 Mg/Ml Sdv 2 Ml) 4 mg IVP Q2M PRN PRN Reason: NAUSEA Pantoprazole Sodium (Pantoprazole Dr 40 Mg Tablet) 40 mg PO BID [facility] Last Admin: 12/09/22 17:31 Dose: 40 mg Vitals/I&O/Wt Last Vital Signs Temp 98.0 F 12/09/22 07:01 Pulse 107 H 12/09/22 21:04 Resp 18 12/09/22 21:04 BP 145/119 12/09/22 20:00 Pulse Ox 99 12/09/22 21:04 O2 Del Method Room Air 12/09/22 21:04 O2 Flow Rate 2 12/07/22 02:47 12/09/22 12/09/22 12/09/22 06:59 14:59 22:59 Intake Total 720 / 720 Output Total 101 / 476 Balance -101 / 709 720 / 720 Physical Exam Narrative: General: alert, NAD HEENT: conj clear, EOMI, PERRL, mmm, Neck: supple, no meningismus Heme: no cervical LAP Respiratory: Inspection: No visible deformity of the chest wall Palpation: Trachea is mildly deviated to the right, bilateral symmetric expansion Percussion: Bilateral tympanic percussion note both anterior and posteriorly Auscultation: Bibasilar inspiratory crepitations Cardiovascular: rrr, nl s1s2, no mrg Abdomen: soft, nt, nd, no r/g, bs+ Extremities: pulses +, 1+ pitting pedal edema, no c/c : no CVA tenderness Skin: intact, no rash MSK: no back or neck pain Neurologic: grossly intact Data 12/09/22 03:31 12/09/22 03:31 Other Labs: Radiology Impressions Chest X-Ray 12/03/22 03:11 IMPRESSION: 1. Heart is enlarged but stable when compared to the prior exam. 2. Interval worsening of bilateral pleuroparenchymal disease. Chest CT 12/03/22 06:13 IMPRESSION: 1. New bilateral groundglass airspace infiltrates more prominent in the perihilar regions. Recommend correlation for pneumonia versus pulmonary edema. Small RIGHT and trace LEFT pleural fluid. 2. No focal consolidation. 3. Marked cardiomegaly. 4. Prominent peribronchial lymph nodes slightly progressed compared to previous likely reactive. 5. Cholecystectomy clips. 6. Small moderate esophageal hiatal hernia. Laboratory Results WBC 13.5 10^3/uL (4.0-10.0) H 12/09/22 03:31 RBC 5.62 10^6/uL (4.1-5.3) H 12/09/22 03:31 Hgb 16.2 g/dL (11.5-15.3) H 12/09/22 03:31 Hct 50.7 % (37.0-47.0) H 12/09/22 03:31 MCV 90.2 fl (81-99) 12/09/22 03:31 MCH 28.8 pg (28.0-34.0) 12/09/22 03:31 MCHC 32.0 g/dL (30.0-36.0) 12/09/22 03:31 RDW 12.8 % (12.1-15.1) 12/09/22 03:31 Plt Count 257 10^3/cmm (130-400) 12/09/22 03:31 MPV 10.3 fL (7.4-10.4) 12/09/22 03:31 Neut % (Auto) 65.7 % 12/09/22 03:31 Lymph % (Auto) 24.8 % 12/09/22 03:31 Holt % (Auto) 8.1 % 12/09/22 03:31 Eos % (Auto) 0.6 % 12/09/22 03:31 Baso % (Auto) 0.1 % 12/09/22 03:31 Neut # (Auto) 8.89 10^3/uL (1.8-7.7) H 12/09/22 03:31 Lymph # (Auto) 3.4 10^3/uL (0.8-4.8) 12/09/22 03:31 Holt # (Auto) 1.1 10^3/uL (0.2-0.9) H 12/09/22 03:31 Eos # (Auto) 0.1 10^3/uL (0.0-0.8) 12/09/22 03:31 Baso # (Auto) 0.0 10^3/uL (0.0-0.1) 12/09/22 03:31 Nucleated RBC % (auto) 0 % 12/09/22 03:31 Nucleated RBCs # 0.0 /100WBC 12/09/22 03:31 PT 20.90 SECONDS (12.1-14.9) H 12/03/22 03:29 INR 1.73 (0.8-1.2) H 12/03/22 03:29 D-Dimer 0.42 ug/mIFEU (0-0.59) 12/03/22 03:29 Specimen Type Arterial 12/03/22 07:37 Sample Site Radial, left 12/03/22 07:37 ABG pH 7.45 (7.35-7.45) 12/03/22 07:37 ABG pCO2 40.6 mmHg (35-45) 12/03/22 07:37 ABG pO2 80.9 mmHg (80.0-100.0) 12/03/22 07:37 ABG HCO3 28.4 mmol/L (22-26) H 12/03/22 07:37 ABG O2 Saturation 97.3 12/03/22 07:37 ABG Base Excess 4.1 mmol/L (-2.0-2.0) H 12/03/22 07:37 [place] Test Pos 12/03/22 07:37 A-a O2 Gradient 8.9 mmHg (5-10) 12/03/22 07:37 Hematocrit 43.9 % (37-47) 12/03/22 07:37 Hgb O2 Saturation 95.2 % (95-100) 12/03/22 07:37 Carboxyhemoglobin 1.6 %THgb (0.4-20.1) 12/03/22 07:37 Methemoglobin 0.6 % (0.4-1.5) 12/03/22 07:37 Total Hemoglobin 14.3 g/dL (12-16) 12/03/22 07:37 Sodium 141.0 mmol/L (131-143) 12/03/22 07:37 Potassium 4.1 mmol/L (3.5-5.0) 12/03/22 07:37 Glucose 218.0 mg/dL (70-115) H 12/03/22 07:37 Ionized Calcium 1.2 mmol/L (1.1-1.4) 12/03/22 07:37 O2 Delivery Device Nc 12/03/22 07:37 O2 Liters/Min 2.0 % 12/03/22 07:37 FiO2 28.0 % 12/03/22 07:37 Supervisor Electronics Testing ID [email or web address] 12/03/22 07:37 Sodium 139 mmol/L (136-145) 12/09/22 03:31 Potassium 3.7 mmol/L (3.5-5.1) 12/09/22 03:31 Chloride 102 mmol/L (98-107) 12/09/22 03:31 Carbon Dioxide 28 mmol/L (22-29) 12/09/22 03:31 Anion Gap 12.7 (5-19) 12/09/22 03:31 BUN 42 mg/dL (8-23) H 12/09/22 03:31 Creatinine 0.7 mg/dL (0.5-0.9) 12/09/22 03:31 GFR Calculation Not Reportable 12/09/22 03:31 Glucose 75 mg/dL (65-115) 12/09/22 03:31 POC Glucose 197 mg/dL (70-110) H 12/09/22 21:18 Estimat Average Glucose 126 12/03/22 03:29 Hemoglobin A1c 6.0 % (4.0-6.0) 12/03/22 03:29 Calculated Osmolality 297 mOsm/kg (285-295) H 12/09/22 03:31 Calcium 8.7 mg/dL (8.5-10.5) 12/09/22 03:31 Phosphorus 3.7 mg/dL (2.5-4.5) 12/08/22 03:29 Magnesium 2.1 mg/dL (1.7-2.3) 12/07/22 05:32 Iron 129 ug/dL (37-145) 12/08/22 03:29 TIBC 260 mcg/dl 12/08/22 03:29 % Saturation 49.6 % (20-50) 12/08/22 03:29 Unsat Iron Binding 131 ug/dL (112-347) 12/08/22 03:29 Total Bilirubin 0.6 mg/dL (0.15-1.2) 12/09/22 03:31 AST 24 U/L (0-32) 12/09/22 03:31 ALT 26 U/L (0-33) 12/09/22 03:31 Alkaline Phosphatase 70 U/L (35-105) 12/09/22 03:31 Troponin T Baseline 12 ng/L (0-10) H 12/03/22 03:29 Troponin T 120 Minute 9.76 ng/L (0-10) 12/03/22 05:03 Delta Troponin T -2.24 ABS# (0-10) L 12/03/22 05:03 Troponin T Hi Sens 6Hr 9.04 ng/L (0-10) 12/03/22 09:20 Troponin T Hi Sens 6Hr Delta -2.96 ng/L (0-12) L 12/03/22 09:20 NT-Pro-B Natriuret Pep 954 pg/mL (0-450) H 12/03/22 03:29 Total Protein 5.7 g/dL (6.6-8.7) L 12/09/22 03:31 Albumin 3.1 g/dL (3.5-5.2) L 12/09/22 03:31 Globulin 2.6 g/dL (1.3-4.6) 12/09/22 03:31 Triglycerides 128 mg/dL (0-150) 12/09/22 03:31 Cholesterol 145 mg/dL (0-200) 12/09/22 03:31 LDL Cholesterol, Calc 64 mg/dL (50-129) 12/09/22 03:31 Total VLDL Cholesterol 26 mg/dL (0-30) 12/09/22 03:31 HDL Cholesterol 55 mg/dL (60-100) L 12/09/22 03:31 Cholesterol/HDL Ratio 2.64 mg/dL (0.0-4.40) 12/09/22 03:31 Vitamin B12 300 pg/mL (232-1245) 12/08/22 03:29 Folate 13.1 ng/mL (4.8-37.3) 12/09/22 03:31 Procalcitonin 0.04 ng/mL (0-0.5) 12/03/22 03:29 TSH 2.09 uIU/mL (0.27-4.20) 12/03/22 03:29 A&P Assessment and plan (1) Hypoxia: Resolved currently saturating 99% on room air (2) Atrial fibrillation with rapid ventricular response: Currently on metoprolol and digoxin she is on Eliquis as well. Heart rate appears to be well controlled on telemetry monitoring. 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 This was seen earliest about [address] scan that has progressed over the last 5 years.? The patient had also given history of moving into a new house around the same time.? Repeat CT chest 10/07/2022?showed moderate pulmonary fibrosis, similar to the prior study of 07/20/2020 without obvious change or progression. However her CTA today morning showed new bilateral groundglass airspace infiltrates more prominent in perihilar regions suggesting mostly pulmonary edema. There is small and trace left pleural effusion. No focal consolidation. Marked cardiomegaly. Prominent peribronchial lymph nodes slightly progressed likely reactive. Her BNP is elevated. Given her increased airspace opacities centrally-suspect fluid overload secondary to triggered event of A-fib RVR Currently her A-fib RVR is well controlled with metoprolol and digoxin and she is saturating 99% on room air She recently completed her antibiotics and it may not help given her low procalcitonin and no definite consolidation. Recommended to taper down her steroids as she does not have any significant wheeze and current exacerbation secondary to fluid overload rather than underlying interstitial lung disease exacerbation Plan At this point-I am signing of and will follow patient as outpatient Attestations Medical Necessity Statement*: Anticipating next 24 to 48 hours once patient's orthostatic dizziness improves Time Spent in Patient Care: Greater than 35 minutes (>than 50% of time spent in counselling and/or direct pt care on unit). Coding Level of Care Code 49030 Diagnoses Hypoxia R09.02 Atrial fibrillation with rapid ventricular response I48.91 Hypersensitivity pneumonitis J67.9 Time Spent (min) 29 Comment Including discussion with various family members
[2022-12-10] VITALS (9 sets, daily range): BP systolic 121–156; BP diastolic 74–109; PULSE 74–94; RESP 16–23; TEMP 36.4–37.2; O2SAT 93–95
[2022-12-10 04:22] LABS: Basophils % 0.1 %; Hematocrit 50.8 % (37.0-47.0); Hemoglobin 16.2 g/dL (11.5-15.3); Lymphocytes # 1.3 10^3/uL (0.8-4.8); Lymphocytes % 11.3 %; Mean Corpuscular HGB Conc 31.9 g/dL (30.0-36.0); Mean Corpuscular Hemoglobin 29.5 pg (28.0-34.0); Mean Corpuscular Volume 92.4 fl (81-99); Mean Platelet Volume 10.2 fL (7.4-10.4); Monocytes # 0.4 10^3/uL (0.2-0.9); Monocytes % 3.3 %; Neutrophils # 9.78 10^3/uL (1.8-7.7); Neutrophils % 84.6 %; Nucleated Red Blood Cells % 0 %; Platelet Count 255 10^3/cmm (130-400); Red Cell Distribution Width 12.7 % (12.1-15.1); White Blood Count 11.6 10^3/uL (4.0-10.0)
[2022-12-10 05:19] LABS: Alanine Aminotransferase 28 U/L (0-33); Alkaline Phosphatase 79 U/L (35-105); Aspartate Amino Transferase 21 U/L (0-32); Blood Urea Nitrogen 37 mg/dL (8-23); Calcium 8.6 mg/dL (8.5-10.5); Carbon Dioxide 21 mmol/L (22-29); Chloride 96 mmol/L (98-107); Globulin 2.6 g/dL (1.3-4.6); Glucose 301 mg/dL (65-115); Osmolality Calculated 294 mOsm/kg (285-295); Sodium 132 mmol/L (136-145); Total Bilirubin 0.6 mg/dL (0.15-1.2); Total Protein 5.6 g/dL (6.6-8.7)
[2022-12-10 05:21] LABS: Digoxin 1.2 ng/mL (0.6-1.2)
[2022-12-10 06:20] LABS: Glucose Point of Care 162 mg/dL (70-110)
[2022-12-10] MEDS: insulin lispro 100 unit/1 mL SUBCUT ×2 (07:46→12:13)
[2022-12-10] MEDS: budesonide 0.5 mg/2 mL Neb INHALATION (08:18)
[2022-12-10] MEDS: ipratropium 0.5 mg/2.5 mL Neb INHALATION ×2 (08:18→14:00)
[2022-12-10] MEDS: metoprolol tartrate 50 mg Tablet 100 MG PO (08:33)
[2022-12-10] MEDS: digoxin 125 mcg Tablet PO (08:33)
[2022-12-10] MEDS: clopidogrel 75 mg Tablet PO (08:34)
[2022-12-10] MEDS: ascorbic acid 500 mg Tablet 1000 MG PO (08:34)
[2022-12-10] MEDS: cyanocobalamin 1,000 mcg Tablet 500 MCG PO (08:34)
--- NOTE | 2022-12-10 10:39 | PC.SOCIAL ---
Imm updated Imm updated with patient at bedside. Copy of page 2 provided. Patient and family verbalized understanding. Copy in chart initialed, dated and timed.
[2022-12-10] MEDS: apixaban 5 mg Tablet PO (10:43)
[2022-12-10] MEDS: pantoprazole DR 40 mg Tablet PO (10:43)
[2022-12-10 11:34] LABS: Glucose Point of Care 145 mg/dL (70-110)
--- NOTE | 2022-12-10 12:59 | PM.DCS ---
Discharge Providers Date of Admission: 12/03/22 04:35 Date of Discharge: December 10, 2022 Attending Provider at Admission: Sugey Casey MD Attending Provider at Discharge: Ravinder Arias MD Primary Care Provider: Saleem Rosado Diagnoses at Discharge Discharge Diagnosis (1) Atrial fibrillation with rapid ventricular response: Status: Acute (2) Atherosclerotic heart disease of [place] coronary artery without angina pectoris: Status: Acute Qualifiers: [place] vs. transplanted heart: [place] heart Qualified Code(s): I25.10 - Atherosclerotic heart disease of [place] coronary artery without angina pectoris (3) Hypersensitivity pneumonitis: Status: Acute (4) Obstructive sleep apnea: Status: Acute Permanent problem details: Pt did not like CPAP (5) Type 2 diabetes mellitus: Status: Acute Qualifiers: Diabetes mellitus intermediate insulin use: with intermediate use Diabetes mellitus complication status: without complication Qualified Code(s): E11.9 - Type 2 diabetes mellitus without complications; Z79.4 - correction (current) use of insulin (6) Hypertension: Status: Acute Qualifiers: Hypertension type: secondary to endocrine disorders Qualified Code(s): I15.2 - Hypertension secondary to endocrine disorders (7) Hyperlipidemia: Status: Acute Qualifiers: Hyperlipidemia type: mixed hyperlipidemia Qualified Code(s): E78.2 - Mixed hyperlipidemia (8) Acute diastolic heart failure: Status: Acute Reason for Visit Reason for Visit: chest pressure Brief History: History as per HPI: Eloisa Campbell is a 87 year old female with past medical history of atrial fibrillation, fatigue, GERD, hematuria, hyperlipidemia, hypertension, obstructive sleep apnea not compliant with CPAP, type 2 diabetes mellitus, pulmonary fibrosis presented to the hospital today with complaint of dyspnea that has been worsening but she is also been having some chest pressure.? On arrival to ER she stated the pain was around 2 out of 10 and it was worse when she took a deep breath however otherwise there was no pain.? She states she has just been feeling more more short of breath recently and now has a drop in oxygen in the ER.? Denies any true history of previously diagnosed heart failure.? Denies fever, nausea, vomiting, diarrhea, abdominal pain.? She also complains of a cough not productive of any sputum at this time.? She follows with pulmonology and recently saw them on 10 November.? She has been diagnosed with chronic fibrotic hypersensitivity pneumonitis however not confirmed on open lung biopsy.? Patient was not interested in pursuing a biopsy at this stage.? She has been off her prednisone and only needing as needed albuterol.? She did have a CT scan of the chest done in September 2022 which did not reveal any progression of fibrotic disease compared to 2019.? She was prescribed inhaled corticosteroid however she did not use it so far.? She is to follow-up with pulmonology again in 9 months. In the ER EKG showed A-fib with RVR with rate of 160s.? She did get Cardizem 20 push and was started on a Cardizem drip.? D-dimer was negative.? CTA was not pursued.? Initial troponin 12.? 2-hour and 6-hour troponin pending at this time.? WBC 12.4, hemoglobin 14.4, platelets 229, sodium 140, potassium 4.4, creatinine 0.7, chest x-ray showed enlarged heart but stable when compared to prior exam.? Interval worsening of bilateral pleural parenchymal disease.? She was recently seen at her primary care's office 1 week ago and she was given a steroid pack with a taper and Levaquin.? She has completed that already. Hospital Course Hospital Course Patient was admitted to the hospital further evaluation and management of shortness of breath in setting of diastolic heart failure, atrial fibrillation and rapid ventricular response. She was started on IV diuresis and cardiology was consulted for atrial fibrillation. Her dose of metoprolol was increased and she was started on digoxin load. There was a concern of exacerbation of her baseline hypersensitive pneumonitis for which she was started on IV steroids and broad-spectrum antibiotics. Patient responded well to the treatment and gradually her heart rates stabilized and she has been on room air for last 3 to 4 days. Steroids have been tapered down. For concerns of ACS she underwent Lexiscan stress test on 12/08 which is negative for acute ischemia. Hospitalization was complicated by her developing orthostatic hypotension and generalized weakness. She was seen by physical therapy. Her antihypertensives were adjusted. Safe discharge planning was discussed in detail with the patient and her family. Home health is being arranged. To prevent from aspiration and resolved symptoms of congestive heart failure she would need head of the bed elevated for which hospital bed is being arranged. She is being discharged in medically stable condition on oral metoprolol 100 mg twice daily, digoxin 125 mcg daily. Her home dose of losartan being increased to 25 mg oral daily. She is to take Lasix 20 mg oral daily as needed for body weight of more than 5 pounds of the body weight today. On the day of Lasix she is to take potassium. Physical Exam Narrative: General: alert, NAD HEENT: conj clear, EOMI, PERRL, mmm, Neck: supple, no meningismus Heme: no cervical LAP Respiratory: Inspection: No visible deformity of the chest wall Palpation: Trachea is mildly deviated to the right, bilateral symmetric expansion Percussion: Bilateral tympanic percussion note both anterior and posteriorly Auscultation: Bibasilar inspiratory crepitations Cardiovascular: rrr, nl s1s2, no mrg Abdomen: soft, nt, nd, no r/g, bs+ Extremities: pulses +, 1+ pitting pedal edema, no c/c : no CVA tenderness Skin: intact, no rash MSK: no back or neck pain Neurologic: grossly intact Discharge Data Studies Completed and Pending Completed Studies During Hospitalization Category Date Time Status CT chest wo con [id number] Routine Cat Scan 12/03/22 06:13 Completed Cardiac Stress Test MIBI [Sestamibi Stress Test Request Exams 12/06/22 13:55 Completed ] Routine XR chest 1V portable [id number] Stat Exams 12/03/22 03:11 Completed NM sara perf SPECT r/s* [id number] Routine Nuc Med 12/08/22 13:55 Completed CV. echo complete* [id number] Routine Ultrasound 12/03/22 06:13 Completed Radiology Impressions Chest X-Ray 12/03/22 03:11 IMPRESSION: 1. Heart is enlarged but stable when compared to the prior exam. 2. Interval worsening of bilateral pleuroparenchymal disease. Chest CT 12/03/22 06:13 IMPRESSION: 1. New bilateral groundglass airspace infiltrates more prominent in the perihilar regions. Recommend correlation for pneumonia versus pulmonary edema. Small RIGHT and trace LEFT pleural fluid. 2. No focal consolidation. 3. Marked cardiomegaly. 4. Prominent peribronchial lymph nodes slightly progressed compared to previous likely reactive. 5. Cholecystectomy clips. 6. Small moderate esophageal hiatal hernia. Laboratory Results WBC 11.6 10^3/uL (4.0-10.0) H 12/10/22 03:48 RBC 5.50 10^6/uL (4.1-5.3) H 12/10/22 03:48 Hgb 16.2 g/dL (11.5-15.3) H 12/10/22 03:48 Hct 50.8 % (37.0-47.0) H 12/10/22 03:48 MCV 92.4 fl (81-99) 12/10/22 03:48 MCH 29.5 pg (28.0-34.0) 12/10/22 03:48 MCHC 31.9 g/dL (30.0-36.0) 12/10/22 03:48 RDW 12.7 % (12.1-15.1) 12/10/22 03:48 Plt Count 255 10^3/cmm (130-400) 12/10/22 03:48 MPV 10.2 fL (7.4-10.4) 12/10/22 03:48 Neut % (Auto) 84.6 % 12/10/22 03:48 Lymph % (Auto) 11.3 % 12/10/22 03:48 [place] % (Auto) 3.3 % 12/10/22 03:48 Eos % (Auto) 0.0 % 12/10/22 03:48 Baso % (Auto) 0.1 % 12/10/22 03:48 Neut # (Auto) 9.78 10^3/uL (1.8-7.7) H 12/10/22 03:48 Lymph # (Auto) 1.3 10^3/uL (0.8-4.8) 12/10/22 03:48 [place] # (Auto) 0.4 10^3/uL (0.2-0.9) 12/10/22 03:48 Eos # (Auto) 0.0 10^3/uL (0.0-0.8) 12/10/22 03:48 Baso # (Auto) 0.0 10^3/uL (0.0-0.1) 12/10/22 03:48 Nucleated RBC % (auto) 0 % 12/10/22 03:48 Nucleated RBCs # 0.0 /100WBC 12/10/22 03:48 PT 20.90 SECONDS (12.1-14.9) H 12/03/22 03:29 INR 1.73 (0.8-1.2) H 12/03/22 03:29 D-Dimer 0.42 ug/mIFEU (0-0.59) 12/03/22 03:29 Specimen Type Arterial 12/03/22 07:37 Sample Site Radial, left 12/03/22 07:37 ABG pH 7.45 (7.35-7.45) 12/03/22 07:37 ABG pCO2 40.6 mmHg (35-45) 12/03/22 07:37 ABG pO2 80.9 mmHg (80.0-100.0) 12/03/22 07:37 ABG HCO3 28.4 mmol/L (22-26) H 12/03/22 07:37 ABG O2 Saturation 97.3 12/03/22 07:37 ABG Base Excess 4.1 mmol/L (-2.0-2.0) H 12/03/22 07:37 [place] Test Pos 12/03/22 07:37 A-a O2 Gradient 8.9 mmHg (5-10) 12/03/22 07:37 Hematocrit 43.9 % (37-47) 12/03/22 07:37 Hgb O2 Saturation 95.2 % (95-100) 12/03/22 07:37 Carboxyhemoglobin 1.6 %THgb (0.4-20.1) 12/03/22 07:37 Methemoglobin 0.6 % (0.4-1.5) 12/03/22 07:37 Total Hemoglobin 14.3 g/dL (12-16) 12/03/22 07:37 Sodium 141.0 mmol/L (131-143) 12/03/22 07:37 Potassium 4.1 mmol/L (3.5-5.0) 12/03/22 07:37 Glucose 218.0 mg/dL (70-115) H 12/03/22 07:37 Ionized Calcium 1.2 mmol/L (1.1-1.4) 12/03/22 07:37 O2 Delivery Device Nc 12/03/22 07:37 O2 Liters/Min 2.0 % 12/03/22 07:37 FiO2 28.0 % 12/03/22 07:37 Infectious Waste Technician ID [email or web address] 12/03/22 07:37 Sodium 132 mmol/L (136-145) L 12/10/22 03:48 Sodium Cancelled 12/10/22 03:48 Potassium 5.0 mmol/L (3.5-5.1) 12/10/22 03:48 Potassium Cancelled 12/10/22 03:48 Chloride 96 mmol/L (98-107) L 12/10/22 03:48 Chloride Cancelled 12/10/22 03:48 Carbon Dioxide 21 mmol/L (22-29) L 12/10/22 03:48 Carbon Dioxide Cancelled 12/10/22 03:48 Anion Gap 20.0 (5-19) H 12/10/22 03:48 Anion Gap Cancelled 12/10/22 03:48 BUN 37 mg/dL (8-23) H 12/10/22 03:48 BUN Cancelled 12/10/22 03:48 Creatinine 0.7 mg/dL (0.5-0.9) 12/10/22 03:48 Creatinine Cancelled 12/10/22 03:48 GFR Calculation Cancelled 12/10/22 03:48 GFR Calculation Not Reportable 12/10/22 03:48 Glucose 301 mg/dL (65-115) H 12/10/22 03:48 Glucose Cancelled 12/10/22 03:48 POC Glucose 145 mg/dL (70-110) H 12/10/22 11:19 Estimat Average Glucose 126 12/03/22 03:29 Hemoglobin A1c 6.0 % (4.0-6.0) 12/03/22 03:29 Calculated Osmolality 294 mOsm/kg (285-295) 12/10/22 03:48 Calculated Osmolality Cancelled 12/10/22 03:48 Calcium 8.6 mg/dL (8.5-10.5) 12/10/22 03:48 Calcium Cancelled 12/10/22 03:48 Phosphorus 3.7 mg/dL (2.5-4.5) 12/08/22 03:29 Magnesium 2.1 mg/dL (1.7-2.3) 12/07/22 05:32 Iron 129 ug/dL (37-145) 12/08/22 03:29 TIBC 260 mcg/dl 12/08/22 03:29 % Saturation 49.6 % (20-50) 12/08/22 03:29 Unsat Iron Binding 131 ug/dL (112-347) 12/08/22 03:29 Total Bilirubin 0.6 mg/dL (0.15-1.2) 12/10/22 03:48 Total Bilirubin Cancelled 12/10/22 03:48 AST 21 U/L (0-32) 12/10/22 03:48 AST Cancelled 12/10/22 03:48 ALT 28 U/L (0-33) 12/10/22 03:48 ALT Cancelled 12/10/22 03:48 Alkaline Phosphatase 79 U/L (35-105) 12/10/22 03:48 Alkaline Phosphatase Cancelled 12/10/22 03:48 Troponin T Baseline 12 ng/L (0-10) H 12/03/22 03:29 Troponin T 120 Minute 9.76 ng/L (0-10) 12/03/22 05:03 Delta Troponin T -2.24 ABS# (0-10) L 12/03/22 05:03 Troponin T Hi Sens 6Hr 9.04 ng/L (0-10) 12/03/22 09:20 Troponin T Hi Sens 6Hr Delta -2.96 ng/L (0-12) L 12/03/22 09:20 NT-Pro-B Natriuret Pep 954 pg/mL (0-450) H 12/03/22 03:29 Total Protein 5.6 g/dL (6.6-8.7) L 12/10/22 03:48 Total Protein Cancelled 12/10/22 03:48 Albumin 3.0 g/dL (3.5-5.2) L 12/10/22 03:48 Albumin Cancelled 12/10/22 03:48 Globulin 2.6 g/dL (1.3-4.6) 12/10/22 03:48 Globulin Cancelled 12/10/22 03:48 Triglycerides 128 mg/dL (0-150) 12/09/22 03:31 Cholesterol 145 mg/dL (0-200) 12/09/22 03:31 LDL Cholesterol, Calc 64 mg/dL (50-129) 12/09/22 03:31 Total VLDL Cholesterol 26 mg/dL (0-30) 12/09/22 03:31 HDL Cholesterol 55 mg/dL (60-100) L 12/09/22 03:31 Cholesterol/HDL Ratio 2.64 mg/dL (0.0-4.40) 12/09/22 03:31 Vitamin B12 300 pg/mL (232-1245) 12/08/22 03:29 Folate 13.1 ng/mL (4.8-37.3) 12/09/22 03:31 Procalcitonin 0.04 ng/mL (0-0.5) 12/03/22 03:29 TSH 2.09 uIU/mL (0.27-4.20) 12/03/22 03:29 Digoxin 1.2 ng/mL (0.6-1.2) 12/10/22 03:48 Digoxin Cancelled 12/10/22 03:48 Vitals Last Vital Signs Temp 97.6 F 12/10/22 11:21 Pulse 74 12/10/22 11:21 Resp 22 H 12/10/22 11:21 BP 151/84 12/10/22 11:21 Pulse Ox 95 12/10/22 11:21 O2 Del Method Room Air 12/10/22 11:21 O2 Flow Rate 2 12/07/22 02:47 Discharge Plan Discharge Patient Disposition: Home Health Service Condition: Stable Prescriptions: New digoxin 125 mcg (0.125 mg) Tablet 125 mcg PO DAILY Qty: 30 0RF furosemide [Lasix] 20 mg tablet 20 mg PO DAILY PRN (Reason: weight gain) Qty: 30 0RF Rx Instructions: Take once daily as needed of body weight increases by 5 pounds Spiriva with HandiHaler 18 mcg capsule, w/inhalation device 1 cap inhalation DAILY Qty: 90 0RF Rx Instructions: puncture 1 cap using device; one dose = 2 inhalations losartan 25 mg tablet 25 mg PO DAILY Qty: 30 0RF potassium chloride 10 mEq tablet,ER particles/crystals 10 meq PO DAILY PRN (Reason: take on the day of lasix) Qty: 30 0RF prednisone 10 mg tablet See Taper PO DIRECTED Qty: 42 0RF Taper: predniSONE 60-10 60 mg Daily for 2 Days and 0 Hour 50 mg Daily for 2 Days and 0 Hour 40 mg Daily for 2 Days and 0 Hour 30 mg Daily for 2 Days and 0 Hour 20 mg Daily for 2 Days and 0 Hour 10 mg Daily for 2 Days and 0 Hour Rx Instructions: see taper instructions Continued cholecalciferol (vitamin D3) 1,000 unit capsule 1,000 unit PO BID ascorbic acid (vitamin C) 1,000 mg tablet 1 g PO DAILY methenamine hippurate 1 gram tablet 1 g PO DAILY Qty: 30 12RF Hold Instructions: Dose Change Rx Instructions: Take 1000 mg of vitamin C with each dose of methenamine Eliquis 5 mg tablet 5 mg PO BID Qty: 30 11RF clopidogrel 75 mg tablet 75 mg PO DAILY Qty: 90 3RF Rx Instructions: Must be seen for future refills - FINAL TIME pioglitazone 15 mg tablet 15 mg PO DAILY Qty: 30 11RF Lantus Solostar U-100 Insulin 100 unit/mL (3 mL) insulin pen 62 unit SUBCUT .Qpm Qty: 15 3RF Changed metoprolol tartrate 50 mg tablet 100 mg PO BID 30 Days Qty: 120 11RF Nexium 20 mg Capsule,Delayed Release(Dr/Ec) 20 mg PO BID Qty: 60 0RF Discontinued valsartan 160 mg tablet 160 mg PO .1 1/2 daily 30 Days Qty: 90 11RF prednisone 20 mg tablet See Rx Instructions .Route .COMPLEX Qty: 14 0RF Rx Instructions: 2 tabs PO daily for 4 days, then 1 tab PO daily X 4 days, then 0.5 tab daily for 4 days, then stop; doxycycline monohydrate 100 mg capsule 100 mg PO BID Qty: 14 0RF cefdinir 300 mg capsule 300 mg PO Q12H Qty: 14 0RF levofloxacin 500 mg tablet 500 mg PO DAILY Discharge Orders: Discharge Order (Routine); Ordered 12/10/22 Ordered By: Ravinder Arias Other Ambulatory Orders: DME: Hospital Bed (Order) Location: None Selected Ordered By: Ravinder Arias DME: Walker (Order) Location: None Selected Ordered By: Anand Granado Referrals: Saleem Rosado NP [Primary Care Provider] - 2 weeks KarierKwan MD [Physician] - 1 month Abena Garcia FNP [Nurse Practitioner] - 2 weeks Discharge Diet: Diabetic Discharge Activity: Resume usual activity and Increase activity as tolerated Patient Instructions: Opioid Safety Activity Restrictions/Additional Instructions: Multiple medication changes have been done. Dose of metoprolol has been increased to 100 mg twice daily. Valsartan has been stopped. Instead take losartan 25 mg oral daily. Take prednisone taper as directed. Please check your body weight daily at home. If your body weight increases by 5 pounds take Lasix 20 mg daily to body weight comes down to a dry weight of today. On the day of Lasix take potassium 10 mg oral. Restrict fluid intake to around 1500 cc a day and salt to around 2 g/day. Check of blood pressure daily at home and maintain a blood pressure diary and follow-up with a primary care provider in 2 weeks for further adjustment of antihypertensives. Please repeat a BMP with a primary care provider in the next visit. Discharge Attestations Time Spent in Discharge Care*: greater than 30 min Specific Discharge Activities: educating patient, educating and/or supporting family/caregiver, discussing with pcp/other providers, discussing with dependency case manager/social workers/dc planners, documenting/other paperwork and evaluating patient/reviewing data Status at Discharge: Cognitive status at discharge: cognitively intact, Behavioral status at discharge: cooperative, Functional status at discharge: uses cane/walker, Overall status at discharge: patient is progressing back to baseline Quality Metrics Clinical Quality Measures [ No reported AMI, CVA or VTE this stay] Coding Level of Care Code 00037 Total time (in minutes) for Discharge: 60 Diagnoses Atrial fibrillation with rapid ventricular response I48.91 Atherosclerotic heart disease of [place] coronary artery without angina pectoris I25.10 [place] vs. transplanted heart: [place] heart Hypersensitivity pneumonitis J67.9 Obstructive sleep apnea G47.33 Type 2 diabetes mellitus E11.9; Z79.4 Diabetes mellitus vermin exterminator insulin use: with intermediate use Diabetes mellitus complication status: without complication Hypertension I15.2 Hypertension type: secondary to endocrine disorders Hyperlipidemia E78.2 Hyperlipidemia type: mixed hyperlipidemia Acute diastolic heart failure I50.31
== END 2022-12-10 17:35 | disposition home health service (06) | DRG 291 ==
LOC: ER 04:18 → CSU 04:36
PROVIDERS: Internal Medicine; Internal Medicine Cardiovascular Disease; Admitting Provider Internal Medicine; Emergency Provider Emergency Medicine; PCP Clinical Nurse Specialist Adult Health; Visit Provider Student in an Organized Health Care Education/Training Program
DX: I11.0 Hypertensive heart disease with heart failure (principal); I50.31 Acute diastolic (congestive) heart failure; J67.9 Hypersensitivity pneumonitis due to unspecified organic dust; I48.91 Unspecified atrial fibrillation; I25.10 Atherosclerotic heart disease of native coronary artery without angina pectoris; G47.33 Obstructive sleep apnea (adult) (pediatric); E11.9 Type 2 diabetes mellitus without complications; I15.2 Hypertension secondary to endocrine disorders; E78.2 Mixed hyperlipidemia; K21.9 Gastro-esophageal reflux disease without esophagitis; Z99.89 Dependence on other enabling machines and devices; Z91.199 Patient's noncompliance with other medical treatment and regimen due to unspecified reason; J84.10 Pulmonary fibrosis, unspecified; I95.1 Orthostatic hypotension; Z79.01 Long term (current) use of anticoagulants; Z79.02 Long term (current) use of antithrombotics/antiplatelets; Z79.4 Long term (current) use of insulin; I34.0 Nonrheumatic mitral (valve) insufficiency
CPT/HCPCS: 36415; 36416; 36600; 71045; 71046; 71250; 78452; 80048; 80051; 80053; 80061; 80069; 80162; 82330; 82607; 82746; 82805; 82962; 83036; 83540; 83550; 83735; 83880; 84145; 84443; 84484; 85025; 85378; 85610; 85651; 86140; 93005; 93017; 93306; 94640; 96365; 96372; 96374; 96375; 96376; 97110; 97116; 97162; 97530; 99285; A9500; J0280; J1160; J1815; J1940; J2405; J2785; J2920; J2930; J3420; J3490; J7030; J7614; J7626; J7644

== ENCOUNTER → 2022-12-16 09:21 | Outpatient (BNVA) | payer MEDICARE, BC, SELFPAY | PROVIDERS: PCP Clinical Nurse Specialist Adult Health; Visit Provider Clinical Nurse Specialist Adult Health | DX: E11.9 Type 2 diabetes mellitus without complications (principal); Z79.4 Long term (current) use of insulin; J22 Unspecified acute lower respiratory infection | CPT/HCPCS: 80048 ==

== ENCOUNTER → 2022-12-18 10:17 | Outpatient (BNVA) | payer MEDICARE, BC, SELFPAY | PROVIDERS: PCP Clinical Nurse Specialist Adult Health; Visit Provider Internal Medicine Pulmonary Disease | DX: J44.9 Chronic obstructive pulmonary disease, unspecified (principal); J67.9 Hypersensitivity pneumonitis due to unspecified organic dust; I48.91 Unspecified atrial fibrillation; Z79.01 Long term (current) use of anticoagulants; Z79.899 Other long term (current) drug therapy | CPT/HCPCS: 99214 ==

== ENCOUNTER → 2022-12-26 08:55 | Outpatient (BNVA) | payer MEDICARE, BC, SELFPAY | PROVIDERS: PCP Clinical Nurse Specialist Adult Health; Visit Provider Clinical Nurse Specialist Adult Health | DX: I48.91 Unspecified atrial fibrillation (principal); I25.10 Atherosclerotic heart disease of native coronary artery without angina pectoris; E11.9 Type 2 diabetes mellitus without complications; I10 Essential (primary) hypertension; E78.5 Hyperlipidemia, unspecified | CPT/HCPCS: 80162; 83880 ==

== ENCOUNTER → 2023-01-27 10:36 | Outpatient (BNVA) | payer MEDICARE, BC, SELFPAY | PROVIDERS: PCP Internal Medicine; Visit Provider Specialist | DX: I48.0 Paroxysmal atrial fibrillation (principal); I15.2 Hypertension secondary to endocrine disorders | CPT/HCPCS: 99214 ==

== ENCOUNTER → 2023-04-20 10:08 | Outpatient (BNVA) | payer MEDICARE, BC, SELFPAY | PROVIDERS: PCP Internal Medicine; Visit Provider Internal Medicine Pulmonary Disease | DX: J67.9 Hypersensitivity pneumonitis due to unspecified organic dust (principal); I48.91 Unspecified atrial fibrillation; Z79.01 Long term (current) use of anticoagulants | CPT/HCPCS: 99214 ==

== ENCOUNTER 2023-07-11 09:20 | Emergency (ER) | payer MEDICARE, BC, SELFPAY ==
[2023-07-11] VITALS (22 sets, daily range): BP systolic 106–162; BP diastolic 63–91; PULSE 90–110; RESP 15–31; O2SAT 83–97; BMI 28.3
--- NOTE | 2023-07-11 13:12 | XRR_ITS ---
PROCEDURE INFORMATION: Exam: XR Chest Exam date and time: 07/11/2023 2:43 PM Age: 88 years old Clinical indication: Cough and dyspnea; Additional info: Dyspnea/cough TECHNIQUE: Imaging protocol: Radiologic exam of the chest. Views: 1 view. COMPARISON: CT chest [facility] [id number] 12/03/2022 7:23 AM FINDINGS: Lungs: Diffuse predominantly bilateral lower lung base reticulonodular opacities. Pleural spaces: No pneumothorax. Heart/Mediastinum: Cardiac silhouette slightly enlarged. Vasculature: Aortic arch calcifications. Bones/joints: No acute fracture. XR/XR chest 1V portable [id number] IMPRESSION: 1. Predominantly bilateral lower lung base reticulonodular opacities consistent with pulmonary fibrosis. 2. Mild blunting of the costophrenic angles which can be seen with small pulmonary effusions.
--- NOTE | 2023-07-11 13:13 | ECG_ITS ---
[facility] Test Date: 2023-07-11 Pat Name: Eloisa Campbell Department: Room: Gender: Female Program Project Analyst: : 1935 Requested By: Alfredo Villatoro Order Number: [id number] Bronson MD: Padma De La Garza M.D. Measurements Intervals [place] Rate: 100 P: 0 CT: 0 QRS: -13 QRSD: 101 T: 54 QT: 326 QTc: 422 Interpretive Statements ATRIAL FIBRILLATION WITH RAPID VENTRICULAR RESPONSE NONSPECIFIC ST & T-WAVE ABNORMALITY ABNORMAL RHYTHM ECG Compared to ECG 12/09/2022 18:39:01 No significant changes Electronically Signed On 07-12-2023 21:29:43 MOWER SHARPENER by Padma De La Garza M.D. [id number]
--- NOTE | 2023-07-11 13:14 | ED_ITS ---
HPI - SOB/Dyspnea 2 General: Chief Complaint: Shortness of Breath/Dyspnea Stated Complaint: sent over by doc, cough, urine smell, congested Time Seen by Provider: 07/11/23 13:01 Source: patient Mode of arrival: ambulatory History of Present Illness: HPI Narrative: 88-year-old female presents emergency ro om complaining of shortness of breath generally not feeling well cold-like symptoms for the last week. She was seen earlier in the week had chest x-ray there is a question of pneumonia versus heart failure which she has not started on any medications for send currently on any antibiotics. She relates she has a history of congestive heart failure and interstitial pulmonary fibrosis. MD elicited complaint: shortness of breath and cough Pertinent past history: congestive heart failure and other (Interstitial pulmonary fibrosis) Known history of: congestive heart failure and other (Interstitial pulmonary fibrosis) Associated symptoms: Reports chest congestion; Deny abdominal pain, chest pain, cough, diaphoresis, dizziness, extremity pain, fever(s), hemoptysis, lightheadedness, myalgias, nausea, orthopnea, palpitations, paresthesias, polydipsia, polyuria, rash, sense of impending doom, syncope or vomiting Treatment prior to arrival: none Review of Systems 2 Const: Reports: fatigue and malaise; Denies: fever(s), chills or diaphoresis Card: Denies: chest pain, palpitations, lightheadedness, syncope or orthopnea Resp: Reports: dyspnea, non-productive cough, wheezing and chest congestion; Denies: hemoptysis GI: Denies: abdominal pain, nausea or vomiting : Denies: dysuria, urinary frequency or urinary urgency Musc: Denies: extremity pain Skin/Breast: Denies: rash Neuro: Denies: dizziness Endo: Denies: polyuria or polydipsia PFSH ED 2 PFSH: Medical History Interstitial pulmonary fibrosis Atrial fibrillation with rapid ventricular response Acute diastolic heart failure Cystitis cystica Gross hematuria Syncope Fatigue Hypertension GERD (gastroesophageal reflux disease) Obstructive sleep apnea Pt did not like CPAP Type 2 diabetes mellitus Atrial fibrillation Atherosclerotic heart disease of [place] coronary artery without angina pectoris Hyperlipidemia Surgical History Hx of hysterectomy Hx of laminectomy History of repair of hiatal hernia Hx of cholecystectomy Hx of breast biopsy Hx of rotator cuff surgery Family History Father Diabetes Hypertension CAD (coronary artery disease) Mother Hypertension CAD (coronary artery disease) Sister Cancer Grandmother Cancer Other Bleeding disorder Social History Smoking and tobacco/nicotine status: never used tobacco/nicotine Second hand smoke exposure: No Alcohol intake: never Substance/Drug Use: never Lives independently: Yes Household members: none Marital status: / Current occupational status: retired Do you think of yourself as: Straight/Heterosexual Physical Exam 2 Const: COMMON NORMALS: no acute distress GENERAL APPEARANCE: cooperative and comfortable ORIENTATION/CONSCIOUSNESS: Yes awake, Yes oriented to person, Yes oriented to place and Yes oriented to time HENMT: COMMON NORMALS: normocephalic, atraumatic and hearing grossly normal bilaterally HEAD & SCALP: normocephalic and atraumatic Resp: COMMON NORMALS: normal respiratory effort, No retractions, No use of accessory muscles and clear to auscultation bilaterally AUSCULTATION: clear to auscultation bilaterally Cardio: COMMON NORMALS: regular rate, regular rhythm and No murmurs present (Cardio) RATE: regular rate RHYTHM: regular rhythm GI: COMMON NORMALS: Soft to palpation and No hepatosplenomegaly present A USCULTATION: Yes normoactive bowel sounds PALPATION: Yes Soft to palpation, No Tenderness to palpation present (GI), No Guarding due to palpation present (GI) and Yes No hepatosplenomegaly present Extremity: COMMON NORMALS: normal to inspection, capillary refill normal, no clubbing, cyanosis or edema, no calf tenderness and no pedal edema Neuro: SENSORIUM/ORIENTATION: Yes oriented to person, Yes oriented to place and Yes oriented to time Skin: COMMON NORMALS: no rashes or lesions noted GENERAL SKIN EXAM: no rashes or lesions noted Course 2 Vital Signs: Vital signs: Vital Signs Pulse Rate 93 07/11/23 15:35 Respiratory Rate 31 H 07/11/23 15:35 Blood Pressure 128/63 07/11/23 15:35 Pulse Oximetry 90 07/11/23 15:35 Oxygen Delivery Me thod Room Air 07/11/23 13:24 MDM - SOB/Dyspnea Medical Decision Making Chest x-ray shows pulmonary fibrosis no sign of infiltrate there is no sign of heart failure. She does have some small effusions. On exam auscultations findings are consistent with this. Urine shows contamination was a clean-catch. She does have a little bit of leukocytosis but no fever. Blood gases well compensated.. At this point would not recommend any antibiotics. Urine can be cultured to see if there is any significant abnormality but given signs of contamination would not recommend antibiotics at this point. Do think she may benefit from steroids. She also has improvement symptomatic gu with DuoNebs we will switch her to albuterol ipratropium bromide combination. Her oxygen saturations are adequate at this time she may need to be evaluated for chronic oxygen. Medical Records I reviewed the patient's medical records. Lab Data I reviewed the patient's lab results. 07/11/23 13:23 07/11/23 13:23 Labs/Radiology: Radiology Impressions Chest X-Ray 07/11/23 13:12 IMPRESSION: 1. Predominantly bilateral lower lung base reticulonodular opacities consistent with pulmonary fibrosis. 2. Mild blunting of the costophrenic angles which can be seen with small pulmonary effusions. Laboratory Results WBC 14.31 10^3/uL (3.29-11.43) H 07/11/23 13:23 RBC 4.90 10^6/uL (3.85-5.65) 07/11/23 13:23 Hgb 14.30 g/dL (11.27-16.99) 07/11/23 13:23 Hct 44.7 % (36-47) 07/11/23 13:23 MCV 91.2 fl (85-98) 07/11/23 13:23 MCH 29.2 pg (27-33) 07/11/23 13:23 MCHC 32.0 g/dL (30-55) 07/11/23 13:23 RDW 13.5 % (12.1-15.1) 07/11/23 13:23 Plt Count 181 10^3/cmm (157-399) 07/11/23 13:23 MPV 10.1 fL (7.4-10.4) 07/11/23 13:23 Neut % (Auto) 76.3 % 07/11/23 13:23 Lymph % (Auto) 15.9 % 07/11/23 13:23 [place] % (Auto) 6.8 % 07/11/23 13:23 Eos % (Auto) 0.2 % 07/11/23 13:23 Baso % (Auto) 0.3 % 07/11/23 13:23 Neut # (Auto) 10.92 10^3/uL (1.8-7.7) H 07/11/23 13:23 Lymph # (Auto) 2.3 10^3/uL (0.8-4.8) 07/11/23 13:23 [place] # (Auto) 1.0 10^3/uL (0.2-0.9) H 07/11/23 13:23 Eos # (Auto) 0.0 10^3/uL (0.0-0.8) 07/11/23 13:23 Baso # (Auto) 0.0 10^3/uL (0.0-0.1) 07/11/23 13: Nucleated RBC % (auto) 0 % 07/11/23 13: Nucleated RBCs # 0.0 /100WBC 07/11/23 13:23 Specimen Type Arterial 07/11/23 13:29 Sample Site Radial, left 07/11/23 13:29 ABG pH 7.50 (7.35-7.45) H 07/11/23 13:29 ABG pCO2 35.7 mmHg (35-45) 07/11/23 13:29 ABG pO2 70.0 mmHg (80.0-100.0) L 07/11/23 13:29 ABG PO2/FiO2 Ratio 0 07/11/23 13:29 ABG HCO3 28.1 mmol/L (22-26) H 07/11/23 13:29 ABG O2 Saturation 97.0 07/11/23 13:29 ABG Base Excess 5.0 mmol/L (-2.0-2.0) H 07/11/23 13:29 [place] Test Pos 07/11/23 13:29 A-a O2 Gradient 4.5 mmHg (5-10) L 07/11/23 13:29 Hematocrit 44.4 % (37-47) 07/11/23 13:29 Hgb O2 Saturation 94.6 % (95-100) L 07/11/23 13:29 Carboxyhemoglobin 2.1 %THgb (0.4-20.1) 07/11/23 13:29 Methemoglobin 0.4 % (0.4-1.5) 07/11/23 13:29 Total Hemoglobin 14.5 g/dL (12-16) 07/11/23 13:29 Sodium 140.0 mmol/L (131-143) 07/11/23 13:29 Potassium 3.6 mmol/L (3.5-5.0) 07/11/23 13:29 Glucose 134.0 mg/dL (70-115) H 07/11/23 13:29 Ionized Calcium 1.1 mmol/L (1.1-1.4) 07/11/23 13:29 O2 Delivery Device Room air 07/11/23 13:29 FiO2 21.0 % 07/11/23 13:29 Blocker Polishing ID Cak 07/11/23 13:29 Sodium 140 mmol/L (136-145) 07/11/23 13:23 Potassium 3.9 mmol/L (3.5-5.1) 07/11/23 13:23 Chloride 98 mmol/L (98-107) 07/11/23 13:23 Carbon Dioxide 29 mmol/L (22-29) 07/11/23 13:23 Anion Gap 16.9 (5-19) 07/11/23 13:23 BUN 13 mg/dL (8-23) 07/11/23 13:23 Creatinine 0.6 mg/dL (0.5-0.9) 07/11/23 13:23 GFR Calculation Not Reportable 07/11/23 13:23 Glucose 133 mg/dL (65-115) H 07/11/23 13:23 POC Glucose 118 mg/dL (70-110) H 07/11/23 13:15 Calculated Osmolality 292 mOsm/kg (285-295) 07/11/23 13:23 Calcium 9.6 mg/dL (8.5-10.5) 07/11/23 13:23 Total Bilirubin 1.1 mg/dL (0.15-1.2) 07/11/23 13:23 AST 15 U/L (0-32) 07/11/23 13:23 ALT 9 U/L (0-33) 07/11/23 13:23 Alkaline Phosphatase 75 U/L (35-105) 07/11/23 13:23 Total Protein 7.3 g/dL (6.6-8.7) 07/11/23 13:23 Albumin 3.7 g/dL (3.5-5.2) 07/11/23 13:23 Globulin 3.6 g/dL (1.3-4.6) 07/11/23 13:23 Urine Color Dark yellow (Yellow) 07/11/23 13:30 Urine Appearance Hazy (CLEAR) A 07/11/23 13:30 Urine pH 5 (5-7) 07/11/23 13:30 Ur Specific [place] 1.015 (1.005-1.030) 07/11/23 13:30 Urine Protein 3+ (Negative) H 07/11/23 13:30 Urine Glucose (UA) Norm (Normal) 07/11/23 13:30 Urine Ketones 1+ (Negative) H 07/11/23 13:30 Urine Blood 2+ (Negative) H 07/11/23 13:30 Urine Nitrate Negative (Negative) 07/11/23 13:30 Urine Bilirubin Neg (Negative) 07/11/23 13:30 Urine Urobilinogen 8 mg/dL (Negative) H 07/11/23 13:30 Ur Leukocyte Esterase Trace (Negative) H 07/11/23 13:30 Urine RBC 0-4 /hpf (0-2) H 07/11/23 13:30 Urine WBC 10-15 /hpf (0-5) H 07/11/23 13:30 Ur Squamous Epith Cells 5-10 /hpf (0-5) H 07/11/23 13:30 Amorphous Sediment Not Reportable 07/11/23 13:30 Urine Bacteria 3+ /hpf (NONE) H 07/11/23 13:30 Digoxin 0.8 ng/mL (0.6-1.2) 07/11/23 13:23 Influenza Type A Ag negative (Negative) 07/11/23 13:19 Influenza Type B Ag negative (Negative) 07/11/23 13:19 SARS-CoV-2 Ag (Rapid) negative (Negative) 07/11/23 13:19 All radiology interpretation(s) finalized by discharge Discharge Plan Discharge Patient Disposition: Home Clinical Impression: Interstitial pulmonary fibrosis Condition: Stable Prescriptions: New ipratropium-albuterol 0.5 mg-3 mg(2.5 mg base)/3 mL solution for nebulization 3 ml inhalation Q4H PRN (Reason: shortness of breath or wheezing) Qty: 90 0RF prednisone 20 mg tablet 20 mg PO TID Qty: 15 0RF Rx Instructions: 1 p.o. 3 times daily x3 days, 1 p.o. twice daily x2 days, 1 p.o. daily x2 days No Action Eliquis 5 mg tablet 5 mg PO BID Qty: 30 11RF Lantus Solostar U-100 Insulin 100 unit/mL (3 mL) insulin pen 60 unit SUBCUT QPM Spiriva with HandiHaler 18 mcg capsule, w/inhalation device 1 cap inhalation DAILY Qty: 90 6RF Rx Instructions: puncture 1 cap using device; one dose = 2 inhalations metoprolol tartrate 100 mg tablet 100 mg PO BID 30 Days Qty: 60 11RF albuterol sulfate 90 mcg/actuation HFA aerosol inhaler 2 puff inhalation Q6H PRN (Reason: shortness of breath or wheezing) Qty: 6.7 6RF omeprazole 40 mg capsule,delayed release(DR/EC) 40 mg PO DAILY losartan 25 mg tablet 25 mg PO DAILY clopidogrel 75 mg tablet 75 mg PO DAILY Qty: 90 3RF Rx Instructions: Must be seen for future refills - FINAL TIME digoxin 125 mcg (0.125 mg) Tablet 125 mcg PO DAILY Qty: 30 0RF albuterol sulfate 0.63 mg/3 mL Solution For Nebulization 0.63 mg inhalation TID acetaminophen 325 mg Tablet 325 mg PO QID PRN (Reason: Pain) Tussin DM 10-100 mg/5 mL Syrup 10 ml PO Q4H PRN (Reason: Cough) neomycin-polymyxin B-dexameth 3.5 mg/g-10,000 unit/g-0.1 % Ointment 1 applic OPHTHALMIC (EYE) QPM Rx Instructions: BOTH EYES Discharge Orders: Discharge ED (Routine); Ordered 07/11/23 Ordered By: Alfredo Spear Referrals: Christopher Burris DO [Primary Care Provider] - Discharge Diet: Usual diet Discharge Activity: Increase activity as tolerated Patient Instructions: Opioid Safety, Pain Management Activity Restrictions/Additional Instructions: Thank you for choosing [facility] for your healthcare needs today. Please realize this is an emergency room and that we are providing you with a medical screening exam and this may not be complete and all inclusive of all the testing and or work up that you may need to determine your ailment or severity of your illness. It is very important that you follow up as instructed or that you return to the Emergency Department should you have concerns or if your condition changes or worsens in any way. You are seen today for shortness of breath chest x-ray showed changes of interstitial fibrosis which is chronic. No signs of infection. No infiltrates on the chest x-ray. Recommend starting steroid taper and using albuterol ipratropium bromide nebs as needed. Coding Level of Care Code ED Tool Builder for David Arreola
[2023-07-11 13:17] LABS: Glucose Point of Care 118 mg/dL (70-110)
--- NOTE | 2023-07-11 13:31 | PC.PHAR ---
CALLED [facility] FOR MED LIST AT 1:30 PM
[2023-07-11 13:36] LABS: Basophils % 0.3 %; Eosinophils % 0.2 %; Hematocrit 44.7 % (36-47); Lymphocytes # 2.3 10^3/uL (0.8-4.8); Lymphocytes % 15.9 %; Mean Corpuscular Hemoglobin 29.2 pg (27-33); Mean Corpuscular Volume 91.2 fl (85-98); Mean Platelet Volume 10.1 fL (7.4-10.4); Monocytes % 6.8 %; Neutrophils # 10.92 10^3/uL (1.8-7.7); Neutrophils % 76.3 %; Nucleated Red Blood Cells % 0 %; Platelet Count 181 10^3/cmm (157-399); Red Cell Distribution Width 13.5 % (12.1-15.1); White Blood Count 14.31 10^3/uL (3.29-11.43)
[2023-07-11 13:40] LABS: ABG PCO2 35.7 mmHg (35-45); Alveolar-Arterial Oxygen Gradi 4.5 mmHg (5-10); Arterial Blood Gas Hematocrit 44.4 % (37-47); Blood Gas Allen Test Pos; Blood Gas Operator Identificat CAK; Blood Gas Sample Site Radial, left; Blood Gas Sample Type Arterial; Carboxyhemoglobin 2.1 %THgb (0.4-20.1); HCO3 ABG 28.1 mmol/L (22-26); HGB O2 Sat 94.6 % (95-100); Ionized Calcium Level - ABG 1.1 mmol/L (1.1-1.4); Methemoglobin 0.4 % (0.4-1.5); Oxygen Device ROOM AIR; PO2 FiO2 Ratio Arterial Blood 0; Potassium Level - ABG 3.6 mmol/L (3.5-5.0); Total Hemoglobin 14.5 g/dL (12-16)
[2023-07-11 13:48] LABS: SARS Covid-2 Antigen negative (Negative)
[2023-07-11 13:49] LABS: Influenza A by IFA negative (Negative); Influenza B by IFA negative (Negative)
[2023-07-11 13:52] LABS: Add Urine Microscopic? YES; Bilirubin Urine Neg (Negative); Blood Urine 2+ (Negative); Glucose Urine UA Norm (Normal); Ketones Urine 1+ (Negative); Leukocyte Esterase Urine Trace (Negative); Nitrate Urine Negative (Negative); Protein Urine 3+ (Negative); RBC Urine 0-4 /hpf (0-2); Specific Gravity, Urine 1.015 (1.005-1.030); Urine Appearance Hazy (CLEAR); Urine Color Dark Yellow (Yellow); Urobilinogen Urine 8 mg/dL (Negative); pH Urine 5 (5-7)
[2023-07-11 13:53] LABS: Add Urine Culture? Yes; Bacteria Urine 3+ /hpf
[2023-07-11 13:53] LABS: Digoxin 0.8 ng/mL (0.6-1.2)
[2023-07-11 13:54] LABS: Alanine Aminotransferase 9 U/L (0-33); Albumin Level 3.7 g/dL (3.5-5.2); Alkaline Phosphatase 75 U/L (35-105); Anion Gap 16.9 (5-19); Aspartate Amino Transferase 15 U/L (0-32); Blood Urea Nitrogen 13 mg/dL (8-23); Calcium 9.6 mg/dL (8.5-10.5); Carbon Dioxide 29 mmol/L (22-29); Chloride 98 mmol/L (98-107); Creatinine Clr Calc Pharmacy 50.8724; Globulin 3.6 g/dL (1.3-4.6); Glucose 133 mg/dL (65-115); Osmolality Calculated 292 mOsm/kg (285-295); Potassium 3.9 mmol/L (3.5-5.1); Sodium 140 mmol/L (136-145); Total Bilirubin 1.1 mg/dL (0.15-1.2); Total Protein 7.3 g/dL (6.6-8.7)
[2023-07-11] MEDS: dexamethasone 10 mg/mL INJ IM (15:01)
== END 2023-07-11 15:37 | disposition home or self-care (01) ==
PROVIDERS: Emergency Medicine; Emergency Provider Family Medicine; PCP Internal Medicine
DX: J84.10 Pulmonary fibrosis, unspecified (principal); Z79.01 Long term (current) use of anticoagulants; Z79.4 Long term (current) use of insulin; Z79.02 Long term (current) use of antithrombotics/antiplatelets; Z11.52 Encounter for screening for COVID-19; I11.0 Hypertensive heart disease with heart failure; I50.9 Heart failure, unspecified; E11.9 Type 2 diabetes mellitus without complications; E78.5 Hyperlipidemia, unspecified; I25.10 Atherosclerotic heart disease of native coronary artery without angina pectoris
CPT/HCPCS: 36415; 36416; 36600; 71045; 80051; 80053; 80162; 81001; 82330; 82805; 82962; 85025; 87077; 87086; 87186; 87426; 87804; 93005; 96372; 99285; J1100

== ENCOUNTER → 2023-07-28 14:02 | Outpatient (BNVA) | payer MEDICARE, BC, SELFPAY | PROVIDERS: PCP Internal Medicine; Visit Provider Internal Medicine Cardiovascular Disease | DX: I25.10 Atherosclerotic heart disease of native coronary artery without angina pectoris (principal); E78.2 Mixed hyperlipidemia; I48.0 Paroxysmal atrial fibrillation; Z79.01 Long term (current) use of anticoagulants; I15.2 Hypertension secondary to endocrine disorders; I50.32 Chronic diastolic (congestive) heart failure | CPT/HCPCS: 99214 ==

== ENCOUNTER → 2023-08-15 15:16 | Outpatient (BNVA) | payer MEDICARE, BC, SELFPAY | PROVIDERS: PCP Internal Medicine; Visit Provider Emergency Medicine | DX: R10.9 Unspecified abdominal pain (principal); N30.01 Acute cystitis with hematuria; B02.9 Zoster without complications; N39.0 Urinary tract infection, site not specified | CPT/HCPCS: 81000; 87077; 87086; 87184 ==

== ENCOUNTER 2023-09-15 11:56 | Emergency (ER) | payer MEDICARE, BC, SELFPAY ==
[2023-09-15 11:59] VITALS: BP 136/75; PULSE 82; RESP 18; TEMP 37; O2SAT 95; BMI 26.6
--- NOTE | 2023-09-15 12:01 | ED_ITS ---
HPI - Abdominal Pain 2 General: Chief Complaint: General Medical Stated Complaint: not eating or drinking Time Seen by Provider: 09/15/23 11:56 Source: patient and EMS Mode of arrival: EMS Limitations: no limitations History of Present Illness: 88-year-old female states over the last 2 to 3 days she has had increased nausea she states she has had decreased intake states she has not felt like eating or drinking has felt dehydrated. She states she has had some retching but no vomiting she has had normal bowel movements denies any dysuria states she has had some less urine output. Denies any fevers. Associated Symptoms: Reports nausea; Denies chills, diarrhea, fever(s) and vomiting Review of Systems 2 Const: Reports: fatigue; Denies: fever(s), chills, body aches or change in appetite ENMT: Denies: throat pain or dental pain Card: Denies: chest pain Resp: Denies: dyspnea GI: Reports: nausea; Denies: abdominal pain, vomiting or diarrhea Musc: Denies: neck pain or back pain Skin/Breast: Denies: rash Neuro: Denies: headache(s) PFSH ED 2 PFSH: Medical History Interstitial pulmonary fibrosis Atrial fibrillation with rapid ventricular response Acute diastolic heart failure Cystitis cystica Gross hematuria Syncope Fatigue Hypertension GERD (gastroesophageal reflux disease) Obstructive sleep apnea Pt did not like CPAP Type 2 diabetes mellitus Atrial fibrillation Atherosclerotic heart disease of [place] coronary artery without angina pectoris Hyperlipidemia Surgical History Hx of hysterectomy Hx of laminectomy History of repair of hiatal hernia Hx of cholecystectomy Hx of breast biopsy Hx of rotator cuff surgery Family History Father Diabetes Hypertension CAD (coronary artery disease) Mother Hypertension CAD (coronary artery disease) Sister Cancer Grandmother Cancer Other Bleeding disorder Social History Smoking and tobacco/nicotine status: never used tobacco/nicotine Second hand smoke exposure: No Alcohol intake: never Substance/Drug Use: never Lives independently: Yes Household members: none Marital status: / Current occupational status: retired Do you think of yourself as: Straight/Heterosexual Physical Exam 2 Const: COMMON NORMALS: no acute distress, patient oriented x3 and healthy appearing HENMT: COMMON NORMALS: normocephalic and atraumatic HEAD & SCALP: n ormocephalic and atraumatic Neck/C-Spine: COMMON NORMALS: full ROM and supple Chest: COMMONS NORMALS: normal inspection of the chest Resp: COMMON NORMALS: normal respiratory effort, No retractions, No use of accessory muscles and clear to auscultation bilaterally AUSCULTATION: clear to auscultation bilaterally Cardio: COMMON NORMALS: regular rate, regular rhythm and No murmurs present (Cardio) RATE: regular rate RHYTHM: regular rhythm GI: COMMON NORMALS: Normal to inspection, nondistended, normoactive bowel sounds present, Soft to palpation, non-tender and no masses PALPATION: Yes Soft to palpation Extremity: COMMON NORMALS: normal to inspection and full ROM Neuro: COMMON NORMALS: patient oriented x3, moves all extremities and no focal motor deficits Psych: COMMON NORMALS: mental status grossly normal, Normal thought process present and cooperative THOUGHT PROCESS: Normal thought process present Skin: COMMON NORMALS: no rashes or lesions noted and no wounds GENERAL SKIN EXAM: no rashes or lesions noted Course 2 Vital Signs: Vital signs: Vital Signs Temperature 98.6 F 09/15/23 11:59 Pulse Rate 86 09/15/23 14:00 Respiratory Rate 18 09/15/23 11:59 Blood Pressure 136/75 09/15/23 13:03 Pulse Oximetry 93 09/15/23 14:00 Oxygen Delivery Me thod Room Air 09/15/23 14:00 MDM - Abdominal Pain Medical Decision Making Patient presents with decreased appetite she is quite constipated on x-ray no signs of obstruction abdominal exam here is benign blood work is normal she does have a UTI we will start her on MiraLAX along with Keflex she is follow-up with PCP and return if worsening. Medical Records I reviewed the patient's medical records. Lab Data I reviewed the patient's lab results. 09/15/23 12:17 09/15/23 14:37 Labs/Radiology: Radiology Impressions KUB X-Ray 09/15/23 12:07 IMPRESSION: As above. Laboratory Results WBC 6.01 10^3/uL (3.29-11.43) 09/15/23 12:17 RBC 5.46 10^6/uL (3.85-5.65) 09/15/23 12:17 Hgb 15.90 g/dL (11.27-16.99) 09/15/23 12:17 Hct 48.4 % (36-47) H 09/15/23 12:17 MCV 88.6 fl (85-98) 09/15/23 12:17 MCH 29.1 pg (27-33) 09/15/23 12:17 MCHC 32.9 g/dL (30-55) 09/15/23 12:17 RDW 14.5 % (12.1-15.1) 09/15/23 12:17 Plt Count 181 10^3/cmm (157-399) 09/15/23 12:17 MPV 9.3 fL (7.4-10.4) 09/15/23 12:17 Neut % (Auto) 51.6 % 09/15/23 12:17 Lymph % (Auto) 34.4 % 09/15/23 12:17 [place] % (Auto) 11.3 % 09/15/23 12:17 Eos % (Auto) 1.7 % 09/15/23 12:17 Baso % (Auto) 0.5 % 09/15/23 12:17 Neut # (Auto) 3.10 10^3/uL (1.8-7.7) 09/15/23 12:17 Lymph # (Auto) 2.1 10^3/uL (0.8-4.8) 09/15/23 12:17 [place] # (Auto) 0.7 10^3/uL (0.2-0.9) 09/15/23 12:17 Eos # (Auto) 0.1 10^3/uL (0.0-0.8) 09/15/23 12:17 Baso # (Auto) 0.0 10^3/uL (0.0-0.1) 09/15/23 12:17 Nucleated RBC % (auto) 0 % 09/15/23 12:17 Nucleated RBCs # 0.0 /100WBC 09/15/23 12:17 Sodium 136 mmol/L (136-145) 09/15/23 14:37 Potassium 3.7 mmol/L (3.5-5.1) 09/15/23 14:37 Chloride 97 mmol/L (98-107) L 09/15/23 14:37 Carbon Dioxide 27 mmol/L (22-29) 09/15/23 14:37 Anion Gap 15.7 (5-19) 09/15/23 14:37 BUN 19 mg/dL (8-23) 09/15/23 14:37 Creatinine 0.7 mg/dL (0.5-0.9) 09/15/23 14:37 GFR Calculation Not Reportable 09/15/23 14:37 Glucose 68 mg/dL (65-115) 09/15/23 14:37 Calculated Osmolality 283 mOsm/kg (285-295) L 09/15/23 14:37 Calcium 8.8 mg/dL (8.5-10.5) 09/15/23 14:37 Total Bilirubin 0.5 mg/dL (0.15-1.2) 09/15/23 14:37 AST 33 U/L (0-32) H 09/15/23 14:37 ALT 19 U/L (0-33) 09/15/23 14:37 Alkaline Phosphatase 82 U/L (35-105) 09/15/23 14:37 Total Protein 6.0 g/dL (6.6-8.7) L 09/15/23 14:37 Albumin 2.9 g/dL (3.5-5.2) L 09/15/23 14:37 Globulin 3.1 g/dL (1.3-4.6) 09/15/23 14:37 Lipase 17 U/L (13-60) 09/15/23 14:37 Urine Color Yellow (Yellow) 09/15/23 12:34 Urine Appearance Hazy (CLEAR) A 09/15/23 12:34 Urine pH 5 (5-7) 09/15/23 12:34 Ur Specific [place] 1.020 (1.005-1.030) 09/15/23 12:34 Urine Protein 1+ (Negative) H 09/15/23 12:34 Urine Glucose (UA) Norm (Normal) 09/15/23 12:34 Urine Ketones 1+ (Negative) H 09/15/23 12:34 Urine Blood Neg (Negative) 09/15/23 12:34 Urine Nitrate Positive (Negative) H 09/15/23 12:34 Urine Bilirubin Neg (Negative) 09/15/23 12:34 Urine Urobilinogen Norm mg/dL (Negative) 09/15/23 12:34 Ur Leukocyte Esterase Trace (Negative) H 09/15/23 12:34 Urine RBC 0-4 /hpf (0-2) H 09/15/23 12:34 Urine WBC 10-15 /hpf (0-5) H 09/15/23 12:34 Ur Squamous Epith Cells 15-25 /hpf (0-5) H 09/15/23 12:34 Calcium Oxalate Crystal 10-15 /hpf H 09/15/23 12:34 Amorphous Sediment Not Reportable 09/15/23 12:34 Urine Bacteria 2+ /hpf (NONE) H 09/15/23 12:34 All radiology interpretation(s) finalized by discharge Discharge Plan Discharge Patient Disposition: Home Clinical Impression: Constipation, Acute cystitis Condition: Stable Prescriptions: New cephalexin 500 mg capsule 500 mg PO TID 7 Days Qty: 21 0RF Miralax 17 gram powder in packet 17 g PO DAILY PRN (Reason: constipation) Qty: 14 0RF No Action Eliquis 5 mg tablet 5 mg PO BID Qty: 30 11RF Lantus Solostar U-100 Insulin 100 unit/mL (3 mL) insulin pen 60 unit SUBCUT QPM Spiriva with HandiHaler 18 mcg capsule, w/inhalation device 1 cap inhalation DAILY Qty: 90 6RF Rx Instructions: puncture 1 cap using device; one dose = 2 inhalations metoprolol tartrate 100 mg tablet 100 mg PO BID 30 Days Qty: 60 11RF omeprazole 40 mg capsule,delayed release(DR/EC) 40 mg PO DAILY losartan 25 mg tablet 25 mg PO DAILY clopidogrel 75 mg tablet 75 mg PO DAILY Qty: 90 3RF digoxin 125 mcg (0.125 mg) Tablet 125 mcg PO DAILY Qty: 30 0RF Pepto-Bismol 262 mg/15 mL Suspension 524 mg PO Q1H PRN (Reason: Indigestion) Rx Instructions: do not exceed 8 doses in a 24 hour period albuterol sulfate 90 mcg/actuation Hfa Aerosol Inhaler 2 puff INHALATION 6XD PRN (Reason: Shortness Of Breath Or Wheezing) acetaminophen 325 mg Tablet 325 mg PO QID PRN (Reason: Pain) dextromethorphan-guaifenesin [Tussin DM] 10-100 mg/5 mL Syrup 10 ml PO Q4H PRN (Reason: Cough) neomycin-polymyxin B-dexameth 3.5 mg/g-10,000 unit/g-0.1 % Ointment 1 applic OPHTHALMIC (EYE) QPM Rx Instructions: BOTH EYES ipratropium-albuterol 0.5 mg-3 mg(2.5 mg base)/3 mL solution for nebulization 3 ml inhalation Q4H PRN (Reason: shortness of breath or wheezing) Qty: 90 0RF Discharge Orders: Discharge ED (Routine); Ordered 09/15/23 Ordered By: Willi Solis Referrals: Christopher Burris DO [Primary Care Provider] - 1-3 days Discharge Diet: Advance as tolerated Discharge Activity: Resume usual activity Patient Instructions: Constipation (ED), Urinary Tract Infection in Women (ED) Coding Level of Care Code ED [employer] Covering for David Arreola
--- NOTE | 2023-09-15 12:07 | XRR_ITS ---
PROCEDURE INFORMATION: Exam: XR Abdomen Exam date and time: 09/15/2023 12:40 PM Age: 88 years old Clinical indication: Abdominal pain; Generalized; Additional info: Abd pain TECHNIQUE: Imaging protocol: Radiologic exam of the abdomen. Views: Frontal supine view of the abdomen. 1 View. COMPARISON: CT abdomen pelvis wo/w [id number] 10/26/2020 9:57 AM FINDINGS: Nonobstructive bowel gas pattern with diffuse colonic stool/constipation. XR/XR KUB [id number] IMPRESSION: As above.
[2023-09-15] MEDS: ondansetron 2 mg/ML SDV 2 mL 4 MG IVP (12:21)
[2023-09-15] MEDS: sodium chloride 0.9% 500 ML IV (12:21)
[2023-09-15 12:27] LABS: Basophils % 0.5 %; Eosinophils # 0.1 10^3/uL (0.0-0.8); Eosinophils % 1.7 %; Hematocrit 48.4 % (36-47); Lymphocytes # 2.1 10^3/uL (0.8-4.8); Lymphocytes % 34.4 %; Mean Corpuscular HGB Conc 32.9 g/dL (30-55); Mean Corpuscular Hemoglobin 29.1 pg (27-33); Mean Corpuscular Volume 88.6 fl (85-98); Mean Platelet Volume 9.3 fL (7.4-10.4); Monocytes # 0.7 10^3/uL (0.2-0.9); Monocytes % 11.3 %; Neutrophils % 51.6 %; Nucleated Red Blood Cells % 0 %; Platelet Count 181 10^3/cmm (157-399); Red Blood Count 5.46 10^6/uL (3.85-5.65); Red Cell Distribution Width 14.5 % (12.1-15.1); White Blood Count 6.01 10^3/uL (3.29-11.43)
[2023-09-15 13:03] VITALS: BP 136/75; PULSE 83; O2SAT 94
[2023-09-15 13:04] LABS: Add Urine Culture? No; Add Urine Microscopic? YES; Bacteria Urine 2+ /hpf; Bilirubin Urine Neg (Negative); Blood Urine Neg (Negative); Glucose Urine UA Norm (Normal); Ketones Urine 1+ (Negative); Leukocyte Esterase Urine Trace (Negative); Nitrate Urine Positive (Negative); Protein Urine 1+ (Negative); RBC Urine 0-4 /hpf (0-2); Squamous Epithelial Cell Urine 15-25 /hpf (0-5); Urine Appearance Hazy (CLEAR); Urine Color Yellow (Yellow); Urobilinogen Urine Norm (Negative); pH Urine 5 (5-7)
[2023-09-15] MEDS: cefTRIAXone 1,000 MG in sodium chloride 0.9% (plus) 50 ML 100 MG IV (13:33)
[2023-09-15 14:00] VITALS: PULSE 86; O2SAT 93
[2023-09-15 15:04] LABS: Alanine Aminotransferase 19 U/L (0-33); Albumin Level 2.9 g/dL (3.5-5.2); Alkaline Phosphatase 82 U/L (35-105); Anion Gap 15.7 (5-19); Aspartate Amino Transferase 33 U/L (0-32); Blood Urea Nitrogen 19 mg/dL (8-23); Calcium 8.8 mg/dL (8.5-10.5); Carbon Dioxide 27 mmol/L (22-29); Chloride 97 mmol/L (98-107); Globulin 3.1 g/dL (1.3-4.6); Glucose 68 mg/dL (65-115); Lipase 17 U/L (13-60); Osmolality Calculated 283 mOsm/kg (285-295); Potassium 3.7 mmol/L (3.5-5.1); Sodium 136 mmol/L (136-145); Total Bilirubin 0.5 mg/dL (0.15-1.2)
== END 2023-09-15 15:49 | disposition home or self-care (01) ==
PROVIDERS: Emergency Provider Emergency Medicine; PCP Internal Medicine
DX: K59.00 Constipation, unspecified (principal); N30.00 Acute cystitis without hematuria; Z79.01 Long term (current) use of anticoagulants; Z79.4 Long term (current) use of insulin; Z79.02 Long term (current) use of antithrombotics/antiplatelets; Z87.440 Personal history of urinary (tract) infections; I10 Essential (primary) hypertension; E11.9 Type 2 diabetes mellitus without complications; I25.10 Atherosclerotic heart disease of native coronary artery without angina pectoris; E78.5 Hyperlipidemia, unspecified
CPT/HCPCS: 36415; 74018; 80053; 81001; 83690; 85025; 96374; 96375; 99284; J0696; J2405; J7040

== ENCOUNTER 2023-09-30 09:53 | Oncology outpatient (recurring) (ONCR) | payer MEDICARE, BC, SELFPAY ==
[2023-09-30 11:02] VITALS: BP 108/73; PULSE 80; RESP 16; TEMP 36.9; O2SAT 98
[2023-09-30] MEDS: sodium chloride 0.9% 1,000 ML 999 ML IV (11:25)
[2023-09-30 12:17] VITALS: BP 130/80; PULSE 94; RESP 16; TEMP 36.6; O2SAT 98
== END 2023-10-08 23:59 | disposition home or self-care (01) ==
LOC: ONCMED 09:54
PROVIDERS: PCP Internal Medicine; Visit Provider Internal Medicine
DX: Z45.2 Encounter for adjustment and management of vascular access device (principal)
CPT/HCPCS: 96360; J7030

== ENCOUNTER → 2023-10-12 13:47 | Outpatient (BNVA) | payer MEDICARE, BC, SELFPAY | PROVIDERS: PCP Internal Medicine; Visit Provider Surgery | DX: R11.2 Nausea with vomiting, unspecified (principal); R10.9 Unspecified abdominal pain; K21.9 Gastro-esophageal reflux disease without esophagitis; R19.4 Change in bowel habit | CPT/HCPCS: 99204 ==

== ENCOUNTER 2023-10-28 13:31 | Oncology outpatient (recurring) (ONCR) | payer MEDICARE, BC, SELFPAY ==
[2023-10-28] MEDS: sodium chloride 0.9% 1,000 ML 999 ML IV (14:54)
[2023-10-28 16:05] VITALS: BP 126/55; PULSE 79; RESP 16; TEMP 36.3; O2SAT 96
== END 2023-11-08 23:59 | disposition home or self-care (01) ==
LOC: ONCMED 13:32
PROVIDERS: PCP Internal Medicine; Visit Provider Internal Medicine
DX: R53.1 Weakness (principal)
CPT/HCPCS: 96360; J7030